=== PATIENT | female | born 1970 | race Caucasian/White ===

== ENCOUNTER → 2016-09-04 | Outpatient (CLI) | payer BC ==
[~2016-09-04] MED LIST: ACET-1256 PO; ASCO100061 PO; BIOT1CAP3 PO; CALC-20 PO; CHOL1TAB46 PO; FEXO1TAB46 PO; FLNIN/ NAE; MULT-920 PO; MULT1TAB22 PO; NAPR1TAB9 PO; OMEG10007 PO; PYRI50TA77 PO
[2016-09-04 10:45] LABS: HEMATOCRIT 42.9 % (37-47); MEAN CORPUSCULAR HEMOGLOBIN 28.7 pg (25-34); MEAN CORPUSCULAR HGB CONC 33.8 g/dl (32-36); MEAN PLATELET VOLUME 10.4 fL (7.4-10.4); PLATELET COUNT 524 K/uL (130-400); RED BLOOD COUNT 5.05 M/uL (4.2-5.4); WHITE BLOOD COUNT 8.48 K/uL (4.8-10.8)
[2016-09-04 11:16] LABS: ALT/SGPT 21 U/L (12-78); BLOOD UREA NITROGEN 10 mg/dl (7-18); BUN/CREATININE RATIO 12.4 (10-20); CALCIUM 8.5 mg/dl (8.5-10.1); CARBON DIOXIDE 28 mmol/L (21-32); CHLORIDE 101 mmol/L (98-107); CREATININE 0.78 mg/dl (0.60-1.20); GLUCOSE 273 mg/dl (70-99); POTASSIUM 4.1 mmol/L (3.5-5.1); SODIUM 134 mmol/L (136-145)
[2016-09-04 11:26] LABS: ESTIMATED AVERAGE GLUCOSE 341 mg/dl; HA1C FLAG Normal (Normal)
[2016-09-04 11:27] LABS: CHOLESTEROL 239 mg/dl (0-200); CHOLESTEROL/HDL RATIO 5.7; HDL CHOLESTEROL 42 mg/dl; LDL CHOLESTEROL CALCULATED 145 mg/dl; RHEUMATOID FACTOR < 10.0 U/mL (0-15); TRIGLYCERIDES 260 mg/dl (0-150); VERY LOW DENSITY LIPOPROT CALC 52 mg/dl
[2016-09-04 12:43] LABS: URINE APPEARANCE CLEAR (CLEAR); URINE BILIRUBIN NEG (NEG); URINE COLOR YELLOW; URINE EPITHELIAL CELL AUTO >30 /lpf (0-5); URINE NITRITE NEG (NEG); URINE PH 5.5 (4.5-7.5); URINE SPECIFIC GRAVITY 1.033 (1.000-1.030); UROBILINOGEN NEG (NEG)
[2016-09-04 12:57] LABS: MANUAL MICROSCOPIC REQUIRED? NO; REVIEW REQ? NO
--- NOTE | 2016-09-08 11:26 | CODING QUERY NO DIAGNOSIS ---
TREATMENT RENDERED WITHOUT A DIAGNOSIS Dr. Everett, To promote full compliance with coding requirements relating to patient care, physician participation is requested in all cases of graphics programmer uncertainty. Please assist us with providing a diagnosis/symptom for the test(s) below: A diagnosis/symptom was not documented on your Order. A valid diagnosis/symptom is required to bill all insurances. Please remember that we are unable to code a diagnosis of rule out, probable, possible, questionable, or suspected. Tests that require a diagnosis: * SED-RATE DIAGNOSIS: * CBC W/O DIFF DIAGNOSIS: * BMP DIAGNOSIS: * LIPID PANEL DIAGNOSIS: * SGPT (ALT) DIAGNOSIS: * RHEUMATOID FACTOR DIAGNOSIS: * GLYCOHEMOGLOBIN A1C DIAGNOSIS: * HA1C RESULT >9.0% DIAGNOSIS: * JOHN DIAGNOSIS: * URINALYSIS W/ MICROSCOPY DIAGNOSIS: * TSH DIAGNOSIS: DATE OF SERVICE: 09/04/16 Provider Signature: Date: Thank you [facility] Information Management Once completed, please kindly fax back to [phone] For questions please call [phone]
== END | disposition home or self-care (01) ==
LOC: C.LAB1850 09:28
PROVIDERS: ATTEND Family Medicine
DX: M25.50 Pain in unspecified joint (principal); E78.5 Hyperlipidemia, unspecified; R73.03 Prediabetes; R32 Unspecified urinary incontinence

== ENCOUNTER → 2016-09-24 | Outpatient (CLI) | payer BC | END | disposition home or self-care (01) | LOC: C.LABSPEC 17:46 | PROVIDERS: ATTEND Physician Assistant | DX: L29.2 Pruritus vulvae (principal) ==

== ENCOUNTER → 2016-10-28 | Outpatient (CLI) | payer BC ==
--- NOTE | 2016-10-28 09:34 | DIAGNOSTIC IMAGING REPORT ---
L-SPINE MIN 4 VIEWS ROUTINE CLINICAL HISTORY: D47.3 BnwljffwuirijjG64.0 Elevated sedimentation rateM54.5 low back pain COMPARISON STUDY: No previous studies for comparison. FINDINGS: There are 5 lumbar type vertebral bodies present. There are mild degenerative changes. No fractures or subluxations are visualized. There are no structural lesions. There is no pathologic bowel dilatation. An IUD is visualized. IMPRESSION: Mild degenerative change. No fractures, subluxations, or destructive lesions are visualized Electronically signed by: Yasmany Petersen M.D. 10/28/2016 9:32 AM Dictated Date/Time: 10/28/2016 9:31 AM
--- NOTE | 2016-10-28 09:35 | DIAGNOSTIC IMAGING REPORT ---
SI JOINTS 3 OR MORE VIEWS CLINICAL HISTORY: D47.3 VlazcoabgspgzwH09.0 Elevated sedimentation rateM54.5 low back pain. COMPARISON STUDY: No previous studies for comparison. FINDINGS: There is no evidence of SI joint fusion. There are no erosive changes. No destructive lesions are evident. Incidental note is made of an IUD. IMPRESSION: No conventional radiographic evidence of an inflammatory sacroiliitis Electronically signed by: Yasmany Petersen M.D. 10/28/2016 9:33 AM Dictated Date/Time: 10/28/2016 9:33 AM
[2016-10-28 12:14] LABS: BASO % 0.4 %; BASO ABS # 0.04 K/uL (0-0.2); COMPLETE YES; EOS % 1.6 %; HEMATOCRIT 44.8 % (37-47); IG% 0.2 %; LYMPH % 29.2 %; LYMPH ABS # 3.16 K/uL (1.2-3.4); MEAN CELL VOLUME 86.3 fL (80-100); MEAN CORPUSCULAR HEMOGLOBIN 27.6 pg (25-34); MEAN CORPUSCULAR HGB CONC 31.9 g/dl (32-36); MEAN PLATELET VOLUME 10.1 fL (7.4-10.4); MONO % 7.3 %; NEUT % 61.3 %; PLATELET COUNT 562 K/uL (130-400); RED BLOOD COUNT 5.19 M/uL (4.2-5.4); WHITE BLOOD COUNT 10.81 K/uL (4.8-10.8)
[2016-10-28 12:33] LABS: ALT/SGPT 22 U/L (12-78); AST/SGOT 18 U/L (15-37); C-REACTIVE PROTEIN 2.71 mg/dl (0-0.29); CREATININE 0.86 mg/dl (0.60-1.20)
[2016-10-28 12:34] LABS: ALKALINE PHOSPHATASE 95 U/L (45-117)
[2016-11-01 02:48] LABS: ANTI-CENTROMERE AB <1.0 NEG AI (<1.0 NEG); ANTI-SS-A <1.0 NEG AI (<1.0 NEG); ANTI-SS-B <1.0 NEG AI (<1.0 NEG); DNA ds CRITHIDIA NEGATIVE (NEGATIVE); HLA-B27** TC 528X NEGATIVE (NEGATIVE); Sm Antibody <1.0 NEG AI (<1.0 NEG)
== END | disposition home or self-care (01) ==
LOC: C.RAD1850 08:55
PROVIDERS: ATTEND Internal Medicine Rheumatology
DX: D47.3 Essential (hemorrhagic) thrombocythemia (principal); R70.0 Elevated erythrocyte sedimentation rate; M54.5 Low back pain; M46.1 Sacroiliitis, not elsewhere classified

== ENCOUNTER → 2016-11-02 | Outpatient (CLI) | payer BC ==
--- NOTE | 2016-11-02 10:24 | DIAGNOSTIC IMAGING REPORT ---
ORBIT RADIOGRAPHS 3 VIEWS HISTORY: pre-MRI screening. COMPARISON: None. FINDINGS: There are no radiopaque foreign bodies identified within the orbits. IMPRESSION: No radiopaque foreign bodies identified within the orbits. Electronically signed by: Aniket Bradley M.D. 11/02/2016 10:23 AM Dictated Date/Time: 11/02/2016 10:22 AM
--- NOTE | 2016-11-02 10:34 | DIAGNOSTIC IMAGING REPORT ---
MRI pelvis PELVIS WITHOUT CONTRAST (MRI) CLINICAL HISTORY: B/L LOW BACK Pain, elevated SED RATE pain TECHNIQUE: Multiaxial MRI acquisition COMPARISON STUDY: 10/28/2016 FINDINGS: Slight degree of bone marrow edema of the osseous structures adjacent to the sacroiliac joints. No evidence of bony ankylosis. No significant pelvic adenopathy. All remaining osseous structures show unremarkable signal characteristics. IMPRESSION: Minimal inflammatory change of the sacroiliac joints bilaterally. Electronically signed by: Kaleb Angel M.D. 11/02/2016 10:33 AM Dictated Date/Time: 11/02/2016 10:29 AM
== END | disposition home or self-care (01) ==
LOC: C.OPENMRI 08:42
PROVIDERS: ATTEND Internal Medicine Rheumatology
DX: H05.9 Unspecified disorder of orbit (principal)

== ENCOUNTER → 2016-11-19 | Outpatient (CLI) | payer BC ==
--- NOTE | 2016-11-19 13:50 | MAMMOGRAPHY REPORT ---
BILATERAL DIGITAL SCREENING MAMMOGRAM TOMOSYNTHESIS WITH CAD: 11/19/2016 CLINICAL HISTORY: Routine screening. Patient has no complaints. TECHNIQUE: Bilateral breast tomosynthesis in addition to standard 2D mammography was performed. Repe at 2-D left MLO view was obtained. Current study was also evaluated with a Computer Aided Detection (CAD) system. COMPARISON: Comparison is made to exams dated: 06/18/2015 mammogram, 12/28/2012 mammogram, and 12/22/2012 mammogram - [facility]. BREAST COMPOSITION: The tissue of both breasts is heterogeneously dense, which may obscure small mas ses. FINDINGS: There is a 9 mm nodular asymmetry in the superior posterior right breast on the MLO view, and an 8 mm nodular asymmetry in the middle one third of the right breast, along the posterior nipple line on the MLO view. These are not clearly seen on the right CC view. Although the asymmetries co uld represent normal overlapping fibroglandular tissue, additional spot compression tomosynthesis vie ws and possibly ultrasound are recommended. No other suspicious mass, architectural distortion or cluster of microcalcifications is seen bilatera lly. IMPRESSION: ACR BI-RADS CATEGORY 0: INCOMPLETE EVALUATION: NEED ADDITIONAL IMAGING EVALUATION The 2 nodular asymmetries in the right breast need additional evaluation. The patient will be called to schedule an appointment. Approximately 10% of breast cancers are not detected with mammography. A negative mammographic report should not delay biopsy if a clinically suggestive mass is present. Whit Pearson M.D. ay/:11/19/2016 08:48:10 Garment Sewing Machine Operator: Milagros SHEFFIELD(R)(Brenda)(HENRRY), [facility] letter sent: Addl Imaging 0 BI-RADS Code: ACR BI-RADS Category 0: Incomplete Evaluation: Need Additional Imaging Evaluation
== END | disposition home or self-care (01) ==
LOC: C.MAMM 07:34
PROVIDERS: ATTEND Obstetrics & Gynecology
DX: Z12.31 Encounter for screening mammogram for malignant neoplasm of breast (principal); N64.89 Other specified disorders of breast

== ENCOUNTER → 2016-11-30 | Outpatient (CLI) | payer BC ==
--- NOTE | 2016-12-01 07:40 | MAMMOGRAPHY REPORT ---
UNILATERAL RIGHT DIGITAL DIAGNOSTIC MAMMOGRAM TOMOSYNTHESIS AND TARGETED RIGHT ULTRASOUND: 11/30/2016 CLINICAL HISTORY: 46-year-old woman called back from screening mammography for 2 nodular asymmetries in the right breast on the MLO view. No family history of breast cancer. TECHNIQUE: Spot compression right CC and MLO 2-D digital and tomosynthesis images were obtained. COMPARISON: Comparison is made to exams dated: 11/19/2016 mammogram, 06/18/2015 mammogram, 12/28/2012 [facility] mogram, and 12/22/2012 mammogram - [facility]. BREAST COMPOSITION: The tissue of the right breast is heterogeneously dense, which may obscure small masses. FINDINGS: There is effacement of the nodular asymmetries on the spot compression MLO views and corre sponding tomosynthesis images. No definite persistent mass or focal area of architectural distortion is seen in the middle or posterior one third of the breast, superior aspect. No corresponding abnor mality is seen on the spot compression CC views of the right breast. Further evaluation with ultraso und was performed. Targeted ultrasound was performed throughout the right breast with particular attention to the superi or breast. It should be noted that sonographic evaluation of the right breast is technically difficu lt given the breast density and numerous shadowing areas throughout the right breast on ultrasound. Within this limitation, and the 1:00 axis, 3 cm from the nipple there is a lobulated hypoechoic and a nechoic solid versus cystic mass measuring 4.9 x 3.9 x 4.5 mm. An area of irregular hypoechoic tissu e was identified in the 3:00 right breast in the anti-radial plane which elongates in the radial plan e suggesting normal fibroglandular tissue. There is a benign anechoic simple cyst in the 11:00 right breast, to 7 m from the nipple, measuring 7.5 x 5.3 x 8.6 mm. 2 other anechoic cysts are identified in the 10:00 right breast, 8 cm from the nipple, measuring 5.3 x 4.1 x 7.7 and 5.2 x 3.8 mm, respect ively. A lobulated hypoechoic solid versus cystic mass in the right 9:00 breast, 15 cm from the nipp le, measures 9.3 x 7.2 x 9.1 mm. A lobulated and circumscribed hypoechoic solid-appearing mass is se en in the 9:00 periareolar right breast measuring 4.6 x 2.9 x 6.6 mm. The only definitive solid mass in the right breast is identified in the 9:00 periareolar axis and thi s small masses indeterminate and definitive characterization with ultrasound guided core needle biops y is recommended. However, there are other indeterminate solid versus cystic masses in the right 9:0 0 breast, 15 cm from the nipple, and in the right 1:00 breast, 3 cm from the nipple. I would prefer definitive characterization with a breast MRI, given the technically difficult breast ultrasound, to assess for the possibility of a suspicious enhancing mass versus benign cysts. However the patient i s claustrophobic and if she is unable to tolerate the MRI, would recommend ultrasound-guided core bio psy 1 and ultrasound guided cyst aspiration versus core biopsy 2. IMPRESSION: ACR BI-RADS CATEGORY 0: INCOMPLETE EVALUATION: NEED ADDITIONAL IMAGING EVALUATION, TARG ETED ULTRASOUND ACR BI-RADS CATEGORY 0: INCOMPLETE EVALUATION: NEED ADDITIONAL IMAGING EVALUATION 1. A contrast-enhanced breast MRI is recommended for definitive characterization of indeterminate so lid versus cystic masses in the 9:00 and 1:00 axes of the right breast, given the heterogeneously den se breast parenchyma and technically difficult ultrasound due to multiple shadowing areas throughout the breast. The sonographic characteristics do not definitively differentiate these masses as solid versus cystic. 2. There is a solid mass in the 9:00 periareolar right breast for which ultrasound-guided core needl e biopsy is ultimately recommended. 3. The patient is claustrophobic and I advised her that Valium may be obtained from her referring ph ysician for use prior to the procedure. If she is unable to tolerate the breast MRI, an addendum bogdan l be made to this report with different recommendations. Approximately 10% of breast cancers are not detected with mammography. A negative mammographic report should not delay biopsy if a clinically suggestive mass is present. Whit Pearson M.D. ay/:11/30/2016 15:19:58 Long Line Teamster: Rema MARADIAGA)(Brenda), [facility] letter sent: Addl Imaging 0 BI-RADS Code: ACR BI-RADS Category 0: Incomplete Evaluation: Need Additional Imaging Evaluation Ult rasound BI-RADS: ACR BI-RADS Category 0: Incomplete Evaluation: Need Additional Imaging Evaluation
== END | disposition home or self-care (01) ==
LOC: C.MAMM 11:21
PROVIDERS: ATTEND Obstetrics & Gynecology
DX: N64.9 Disorder of breast, unspecified (principal); N63 Unspecified lump in breast

== ENCOUNTER → 2016-12-04 | Outpatient (CLI) | payer BC ==
[2016-12-04 10:19] LABS: CREATININE 0.97 mg/dl (0.60-1.20)
== END | disposition home or self-care (01) ==
LOC: C.LAB1850 09:09
PROVIDERS: ATTEND Obstetrics & Gynecology
DX: R73.01 Impaired fasting glucose (principal); R92.2 Inconclusive mammogram; N63 Unspecified lump in breast

== ENCOUNTER → 2016-12-11 | Outpatient (CLI) | payer BC ==
--- NOTE | 2016-12-14 07:44 | MAMMOGRAPHY REPORT ---
BREAST MRI OF BOTH BREASTS : 12/11/2016 CLINICAL HISTORY: Multiple solid versus cystic masses seen within the right 9 and 1:00 breast during recent diagnostic workup, for which MRI was recommended for further evaluation. COMPARISON: Comparison is made to exams dated: 11/30/2016 mammogram, 11/19/2016 mammogram, 06/18/2015 [facility] mogram, 12/28/2012 mammogram, and 12/22/2012 mammogram - [facility]. Technique: The patient was placed prone in a dedicated breast imaging coil. Precontrast axial T1-rosanne ghted, axial T2-weighted fat saturation, and axial T1-weighted fat saturation images were obtained. After the administration of 10.5 mL of Gadavist IV contrast, sequential T1-weighted fat saturation im ages were obtained. Subtraction images were obtained of the dynamic contrast enhanced sequences, and 3-D reformations were performed. The Meniga software was used for kinetic analysis. Findings: There is mild to moderate background parenchymal enhancement involving bilateral breasts. There are no suspicious enhancing masses or areas of abnormal non-mass enhancement within either breast. There are multiple circumscribed small T2 hyperintense, nonenhancing masses seen scattered bilaterally, co nsistent with cysts. The multiple masses seen in the right breast on recent ultrasound exam likely c orrespond with the cysts seen on the MRI, given no enhancing masses noted on the postcontrast images. There is no evidence of axillary adenopathy. A minimal dependent right pleural effusion is noted. R emainder of the visualized extramammary soft tissues are unremarkable. IMPRESSION: ACR BI-RADS CATEGORY 4A: LOW SUSPICION FOR MALIGNANCY No MRI evidence of malignancy in either breast. Multiple bilateral cysts are noted, which likely cor respond with the multiple masses seen within the right breast on the recent ultrasound exam. Recomme nd ultrasound-guided biopsy of the right 9:00 periareolar breast mass, as recommended on the recent d iagnostic report. Pending benign pathology results, recommend follow-up diagnostic tomosynthesis denise mograms and ultrasound of the right breast in 6 months to confirm stability of the other masses. A phone call was made to the physician's office to confirm faxed results were received. Angelita Mora M.D. /:12/12/2016 11:25:25 Finished Metal Repairer: deep submergence vehicle crewmember, [facility] BI-RADS Code: ACR BI-RADS Category 4A: Low Suspicion For Malignancy
== END | disposition home or self-care (01) ==
LOC: C.MRI 06:28
PROVIDERS: ATTEND Obstetrics & Gynecology
DX: N63 Unspecified lump in breast (principal); R73.01 Impaired fasting glucose; N60.01 Solitary cyst of right breast; N60.02 Solitary cyst of left breast

== ENCOUNTER → 2016-12-23 | Outpatient (CLI) | payer BC ==
--- NOTE | 2016-12-23 09:40 | Discharge Instructions ---
Discharge Instructions Procedure Procedure Date: Dec 23, 2016. Reason for visit: Right Mass. Discharge Discharge Date: Dec 23, 2016. Discharge Diagnosis: post right breast ultrasound guided core biopsy Instructions Activity Recommendations: Additional Limitations (see below) Return to School/Work: no limitations Recommended Home Diet: No Limitations Provider Instructions: ACTIVITY RECOMMENDATIONS: * No lifting, pushing, pulling or exercising the affected side for three days. RETURN TO SCHOOL/WORK: * You may return to work/school after the procedure, but do not perform any strenuous activities for 24 to 48 hours. MEDICATIONS: * Tylenol (two 325 mg) every four to six hours if needed for mild pain (if not allergic to Tylenol). DIET: * Resume previous diet. SPECIAL CARE INSTRUCTIONS: * Keep biopsy site dry for 24 hours. May shower after 24 hours, but do not soak (bathe) incision. * May remove Tegaderm (plastic patch) tomorrow AFTER showering. * Leave the steri-strips on for one week. Allow the steri-strips to fall off by themselves. If not off after one week, you may remove them. You may place a Bandaid crosswise over the strips, if desired. * Apply ice 10 minutes on and 10 minutes off as needed. * Wear a bra at bedtime to sleep more comfortably for 2-3 days. * Your referring physician should have the results after approximately 5 to 7 business days. * Call for unusual bleeding, fever, drainage, etc or if you have any questions call [phone] during normal business hours or after hours call Dr Pearson, . FOLLOW UP VISIT: Follow-up with Referring Physician as scheduled. Allergies Coded Allergies: Pineapple (Verified Allergy, Severe, throat closes up, 10/11/15) Penicillins (Unverified Allergy, Mild, HIVES A BABY, 10/11/15) Molds & Smuts (Unverified Allergy, Unknown, TESTED ALLERGY TO MOLDS-SINUS ISSUES, 10/11/15) Sulfa Antibiotics (Verified Adverse Reaction, Unknown, NAUSEA, 10/11/15) Maria Elena Suresh Recommendations: Call your doctor if: * Temperature above 101 degrees * Pain not relieved by pain medicine ordered * There is increased drainage or redness from any incision * You have any unanswered questions or concerns. Your Doctors Instructions noted above were prepared by provider Whit Pearson. Patient Signature Section: Patient Instructions Signature Page Elza Thorne Patient (or Guardian) Signature/Date: I have read and understand the instructions given to me by my caregivers. Caregiver/RN/Doctor Signature/Date: The above-named patient and/or guardian has received patient instructions on this date. + Original Patient Signature Page (only) stays with chart. Please make copy for patient.
--- NOTE | 2016-12-23 12:24 | MAMMOGRAPHY REPORT ---
THIS REPORT HAS BEEN AMENDED. ULTRASOUND GUIDED BIOPSY RIGHT BREAST: 12/23/2016 CLINICAL HISTORY: 46-year-old woman with an indeterminate solid mass in the 9:00 periareolar right br east. Numerous other masses scattered throughout the right breast mammographically, most of which ar e felt to be cystic in nature based on a recent MRI. She presents for ultrasound-guided core needle biopsy of the solid appearing mass in the 9:00 right breast. COMPARISON: Comparison is made to exams dated: 11/30/2016 ultrasound, 11/30/2016 mammogram, 11/19/2016 m ammogram, 06/18/2015 mammogram, 12/22/2012 mammogram, and 12/28/2012 mammogram - [facility]. PATIENT CONSENT: The procedure, risks and benefits were discussed with the patient and informed conse nt was obtained both verbally and in writing. Specific risks to this procedure include: bleeding, in fection, puncture of adjacent structure, nontarget biopsy, sampling error, pain, metal allergy and me dication reaction. PROCEDURE DESCRIPTION: A time out was performed and the right breast was agreed as the site of biopsy . The skin was prepped and draped in the usual sterile fashion. The lobulated hypoechoic solid mass i n the 9:00 right breast was chosen as the target for biopsy. Subcutaneous and intraparenchymal 1% buf fered lidocaine, with and without epinephrine, was administered as local anesthesia. A skin incision was made. Through the incision, 4 samples were taken with a 14 gauge Achieve biopsy device. A ribbon shaped metallic marker was placed at the biopsy site. Hemostasis was achieved after manual compressi on. The patient tolerated the procedure well and there was no immediate complication. The samples we re sent to the pathology department in an appropriately labeled container. Postprocedure right CC and ML tomosynthesis images were obtained. A new ribbon-shaped metallic biops y marker is seen in the 9:00 anterior right breast, at the site of the biopsied indeterminate hypoech oic solid mass identified on ultrasound. No post biopsy hematoma is identified. Pending benign path ology results, recommend follow-up diagnostic mammograms including tomosynthesis images and possible repeat ultrasound in the right breast in 6 months. IMPRESSION: ULTRASOUND GUIDED BIOPSY Status post ultrasound guided core biopsy of an indeterminate hypoechoic solid mass in the 9:00 anter ior right breast, with biopsy marker placed at the site. Pending benign pathology results, follow-up right diagnostic mammograms including tomosynthesis image s and possible repeat ultrasound is recommended to ensure stability of other mammographic masses in 6 months. The patient will receive notification of the biopsy results from her referring physician. Whit Pearson M.D. ay/:12/23/2016 12:13:22 Hr Leader: Becca MARADIGAA)(Brenda), [facility] AMENDMENT: 12/30/2016 Whit Pearson M.D. Pathology results from the ultrasound-guided core biopsy of a hypoechoic solid-appearing mass in the 9:00 right breast yielded benign breast tissue. Negative for DCIS and invasive carcinoma. Sections reveal benign breast tissue consisting of course of fibrofatty stroma. Only rare ductal elements are identified. No atypical features are noted. No DCIS or malignancy is seen. Although the pathology results do not show masslike features, the imaging appearance was probably benign. The patient is a lready recommended to have a six-month close follow-up diagnostic mammograms and ultrasound for other benign-appearing solid versus cystic masses and therefore can reassess the 9:00 right breast with re peat targeted ultrasound at that time.
--- NOTE | 2016-12-23 12:24 | MAMMOGRAPHY REPORT ---
UNILATERAL RIGHT DIGITAL DIAGNOSTIC MAMMOGRAM TOMOSYNTHESIS: 12/23/2016 CLINICAL HISTORY: Status post ultrasound guided core biopsy of an indeterminate solid mass in the 9:0 0 periareolar right breast. Please refer to the report from right breast ultrasound-guided core biopsy performed at the same time for full detail. IMPRESSION: POST PROCEDURE IMAGING FOR MARKER PLACEMENT Please refer to the report from right breast ultrasound-guided core biopsy performed at the same time for full detail. Approximately 10% of breast cancers are not detected with mammography. A negative mammographic report should not delay biopsy if a clinically suggestive mass is present. Whit Pearson M.D. ay/:12/23/2016 09:43:46 Pulp Mill Operator: Becca SHEFFIELD(R)(M), [facility] BI-RADS Code: Post Procedure Imaging For Marker Placement
== END | disposition home or self-care (01) ==
LOC: C.MAMM 08:47
PROVIDERS: ATTEND Obstetrics & Gynecology
DX: N63 Unspecified lump in breast (principal)

== ENCOUNTER → 2017-01-27 | Outpatient (CLI) | payer BC | END | disposition home or self-care (01) | LOC: C.PAPS 13:37 | PROVIDERS: ATTEND Obstetrics & Gynecology | DX: Z01.419 Encounter for gynecological examination (general) (routine) without abnormal findings (principal) ==

== ENCOUNTER → 2017-08-17 | Outpatient (CLI) | payer BC ==
--- NOTE | 2017-08-18 07:58 | MAMMOGRAPHY REPORT ---
UNILATERAL RIGHT DIGITAL DIAGNOSTIC MAMMOGRAM TOMOSYNTHESIS WITH CAD AND TARGETED RIGHT ULTRASOUND: CLINICAL HISTORY: 47-year-old woman initially called back from screening for 2 nodular asymmetries in the superior right breast on the MLO view. She was found to have a solid mass in the 9:00 anterior right breast on ultrasound but underwent breast MRI prior to core biopsy given the multiple masses se en in the right breast on targeted ultrasound. Numerous cysts were demonstrated on MRI with a single solid mass corresponding with the sonographic mass in the 9:00 axis and therefore ultrasound-guided core biopsy was performed in one location and this yielded benign pathology results. Patient present s for follow-up in the right breast. The initial mammographic nodular asymmetries were thought to co rrespond with cysts and normal overlapping tissue. TECHNIQUE: Right breast tomosynthesis in addition to standard 2D mammography was performed. Current s tudy was also evaluated with a Computer Aided Detection (CAD) system. COMPARISON: Comparison is made to exams dated: 12/23/2016 mammogram, 11/30/2016 ultrasound, 11/30/2016 m ammogram, 11/19/2016 mammogram, 06/18/2015 mammogram, and 12/28/2012 mammogram - [facility]. BREAST COMPOSITION: The tissue of the right breast is heterogeneously dense, which may obscure small masses. FINDINGS: The 2 nodular asymmetries in the superior right breast on the MLO view are less conspicuous on the current exam. There is a ribbon-shaped biopsy marker clip in the 9:00 anterior right breast, denoting the site of prior benign biopsy. Other than multiple partially circumscribed masses scatte red in the right breast on the tomosynthesis images, there are no suspicious spiculated or irregular masses, focal areas of architectural distortion or suspicious microcalcifications identified. Targeted ultrasound was performed in the right breast with particular attention to the areas of benig n-appearing hypoechoic masses identified on prior ultrasound. In the 1:00 right breast, 3 cm from th e nipple, a mass is no longer identified, confirming a benign fluctuating cysts. Likewise in the 3:0 0 axis, 10 cm from the nipple a mass is no longer identified, suggesting a benign fluctuating cyst. In the 9:00 periareolar right breast, the previously biopsied benign mass is again seen measuring 5.5 x 3.7 x 5.6 mm. This is unchanged comparing it to the ultrasound performed November 30, 2016 at which t adela it measured 4.6 x 2.9 x 6.6 mm. Given slight differences in positioning and measuring technique this is considered stable. Another six-month follow-up ultrasound is recommended to ensure longer st ability. In the 9:00 axis, 15 cm from the nipple, there are 2 abutting anechoic cysts with posterior acoustic enhancement, measuring 6.8 x 7.0 x 5.9 mm, and another probable cyst with posterior acousti c enhancement seen in the 9:00 axis, 10 cm from the nipple, measuring 7.6 mm. There are anechoic gómez ign cyst in the 10:00 axis, 8 cm from the nipple, without evidence of a suspicious hypoechoic solid m ass. IMPRESSION: ACR-BI-RADS CATEGORY 3: PROBABLY BENIGN, TARGETED ULTRASOUND ACR-BI-RADS CATEGORY 3: PRO BABLY BENIGN 1. Less prominent nodular asymmetries in the superior right breast on the MLO view, confirming benig nity likely representing benign cysts or overlapping fiber glandular tissue. 2. Stable postbiopsy changes in the 9:00 anterior right breast mammographically, and a stable sonogr aphic size and appearance of a benign-appearing mass in the 9:00 periareolar breast which was previou sly biopsied. Another six-month follow-up targeted right breast ultrasound in the 9:00 axis is recom mended to ensure longer stability. 3. Previously observed hypoechoic benign-appearing masses on ultrasound most likely represent benign fibrocystic change. Lesions are no longer seen in the 1:00 or 3:00 axis, confirming benignity likel y representing resolving cysts. Other masses that are currently identified have a clearly cystic xavier ure and are benign in appearance. 4. At the time of next follow-up in the right breast, annual left mammography will also be due. These results and recommendations were discussed with the patient at the time of the exam. Approximately 10% of breast cancers are not detected with mammography. A negative mammographic report should not delay biopsy if a clinically suggestive mass is present. Whit Pearson M.D. ay/:08/17/2017 12:56:20 Gaming Associate: Rema SHEFFIELD(Dante)(Brenda), [facility] letter sent: Follow Up Recommended 3 BI-RADS Code: ACR-BI-RADS Category 3: Probably Benign Ultrasound BI-RADS: ACR-BI-RADS Category 3: Pr obably Benign
== END | disposition home or self-care (01) ==
LOC: C.MAMM 07:45
PROVIDERS: ATTEND Obstetrics & Gynecology
DX: R92.8 Other abnormal and inconclusive findings on diagnostic imaging of breast (principal); N64.89 Other specified disorders of breast; N63.10 Unspecified lump in the right breast, unspecified quadrant

== ENCOUNTER 2019-11-23 07:09 | Inpatient (IN) ==
--- NOTE | 2019-11-10 15:31 | Anesthesiology Consultation ---
Date of Service November 10, 2019 Assessment & Plan (1) Encounter for pre-operative examination: Chart Review Chart Review: Pending: Refer to Additional Notes / Consult section (pending response from PCP and 11/20 Covid testing ) and Patient NOT seen in Pre Admission Testing - Check BSG AM DOS - Check test AM DOS - Wrote note to PCP re: platelet count and if this is baseline for patient or if further work up needed. Will await response. Per nursing assessment 11/06/19, resides in [facility] - no recent travel. Wears mask in public. Scheduled for Covid testing 11/21/19. Will await results History Surgery Operation Date: 11/23/19 07:00 Proposed Procedures p Open Ventral Hernia Repair with Ovitex Mesh - Sarbjit Andrade, Height/Weight Height: 5 ft 6 in Weight: 108.862 kg Allergies Allergy/AdvReac Type Severity Reaction Status Date / Time pineapple Allergy Severe throat Verified 11/06/19 13:39 closes up Penicillins Allergy Mild HIVES A Unverified 11/06/19 13:39 BABY mold Allergy Unknown TESTED Unverified 11/06/19 13:39 ALLERGY TO MOLDS-SINUS ISSUES Sulfa (Sulfonamide AdvReac Mild NAUSEA Verified 11/06/19 13:39 Antibiotics) Medications Home Medications Medication Instructions Recorded Confirmed Last Taken ascorbic acid (vitamin C) [Vitamin 1 g PO QAM 11/06/19 11/06/19 Unknown C] aspirin 81 mg PO HS 11/06/19 11/06/19 Unknown cholecalciferol (vitamin D3) 125 mcg PO QAM 11/06/19 11/06/19 Unknown [Vitamin D3] diphenhydramine-acetaminophen 2 tab PO HS 11/06/19 11/06/19 Unknown [Tylenol PM Extra Strength] fexofenadine-pseudoephedrine 1 tab PO QAM 11/06/19 11/06/19 Unknown [Kia-D 24 Hour] fluticasone propionate [Flonase 1 spray INTRANASAL HS 11/06/19 11/06/19 Unknown Allergy Relief] hydrochlorothiazide 25 mg PO QAM 11/06/19 11/06/19 Unknown levonorgestrel [Mirena] 20 mcg INTRAUTERINE UD 11/06/19 11/06/19 Unknown lisinopril 20 mg PO QAM 11/06/19 11/06/19 Unknown metformin 500 mg PO TID 11/06/19 11/06/19 Unknown [id number] 1.7 mg PO QAM 11/06/19 11/06/19 Unknown [Airborne (ascorbate sodium)] naproxen [Naprosyn] 500 mg PO BID 11/06/19 11/06/19 Unknown omeprazole 40 mg PO QAM 11/06/19 11/06/19 Unknown rosuvastatin 10 mg PO QPM 11/06/19 11/06/19 Unknown semaglutide [Ozempic] 0.5 mg SUBCUT WK 11/06/19 11/06/19 Unknown sertraline 25 mg PO QAM 11/06/19 11/06/19 Unknown sitagliptin [Januvia] 100 mg PO QAM 11/06/19 11/06/19 Unknown Past Medical History Medical History (Updated 11/10/19 @ 15:34 by Aleisha Hodges PA-C) Ankylosing spondylitis Anxiety Diabetes mellitus, type 2 GERD (gastroesophageal reflux disease) History of migraine headaches Hypercholesterolemia Hypertension IBS (irritable bowel syndrome) IUD (intrauterine device) in place Mirena inserted in OR 10/11/2015 Menorrhagia with irregular cycle Pancreatic tumor BENIGN Stress incontinence Past Family History Family History Grandmother Hypertension Grandfather Hypertension Father Hypertension Grandmother (Maternal) Diabetes Grandfather (Maternal) Heart disease Grandfather (Paternal) Heart disease Diabetes Denies family history of Ovarian cancer Breast cancer Colorectal cancer Past Surgical History Surgical History H/O breast biopsy RT History of cholecystectomy History of dilatation and curettage History of esophagogastroduodenoscopy (EGD) History of lung surgery LEFT VATS D/T FLUID BUILD UP 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
[~2019-11-23 07:09] MED LIST changes: -ACET-1256 PO; -ASCO100061 PO; -BIOT1CAP3 PO; -CALC-20 PO; -CHOL1TAB46 PO; +CLINDAMYCIN 900 MG in DEXTROSE 5% 50 ML IV SCH; -FEXO1TAB46 PO; -FLNIN/ NAE; +LR 15ML/HR IV SCH; -MULT-920 PO; -MULT1TAB22 PO; -NAPR1TAB9 PO; -OMEG10007 PO; -PYRI50TA77 PO
[2019-11-23] MEDS ORDERED: MIDAZOLAM HCL 1 MG/ML 2ML VIAL ONE (07:37)
[2019-11-23] MEDS ORDERED: LIDOCAINE HCL 2% 2 ML VIAL/AMP(20MG/ML) INFIL ONE (07:37)
[2019-11-23] MEDS ORDERED: PROPOFOL IV EMULSION 10 MG/ML 20 ML VIAL IV ONE ×2 (07:37→09:51)
[2019-11-23] MEDS ORDERED: DEXAMETHASONE SOD INJ 4 MG/ML VIAL ONE (07:37)
[2019-11-23] MEDS ORDERED: ONDANSETRON INJ 2 MG/ML 2 ML VIAL ONE (07:37)
[2019-11-23] MEDS ORDERED: fentaNYL citrate 100 MCG/2 ML VIAL ONE ×3 (07:37→09:19)
[2019-11-23] MEDS ORDERED: EPINEPHrine INJ 1 MG/ML AMP ONE (08:10)
[2019-11-23] MEDS ORDERED: BUPIVACAINE 0.5 % 5 MG/1 ML MPF 30ML VIAL ONE (08:10)
[2019-11-23] MEDS ORDERED: ONDANSETRON INJ 2 MG/ML 2 ML VIAL IV PRN (08:14)
[2019-11-23] MEDS ORDERED: ePHEDrine sulfate 50 MG/ML AMP IV PRN (08:14)
[2019-11-23] MEDS ORDERED: PROMETHAZINE HCL 12.5 MG in SODIUM CHLORIDE 0.9% 50 ML IV PRN (08:14)
[2019-11-23] MEDS ORDERED: ATROPINE SULFATE 0.1 MG/ML 10ML SYR IV PRN (08:14)
--- NOTE | 2019-11-23 08:26 | History & Physical Report ---
Date of Service November 23, 2019 Assessment & Plan (1) Incisional hernia: Clearly these hernias should be repaired. We discussed her options previously as well as the pros and cons of each. I am recommending mesh we will likely use an absorbable type such as ovitex. We discussed risks which include infection infection mesh requiring explant injury to another organ bleeding, PE, [place], CVA, DVT etc. Following our discussion I answered all of her questions. We will proceed with an open ventral hernia repair likely with mesh. History of Present Illness Primary Care Provider: David Everett MD 49-year-old with a rather extensive past surgical history now presents with incisional hernias found on CT scan. They are symptomatic and uncomfortable for her and she would like to have them repaired. Allergies Allergy/AdvReac Type Severity Reaction Status Date / Time pineapple Allergy Severe throat Verified 11/23/19 07:39 closes up Penicillins Allergy Mild HIVES A Verified 11/23/19 07:39 BABY mold Allergy Unknown TESTED Verified 11/23/19 07:39 ALLERGY TO MOLDS-SINUS ISSUES Sulfa (Sulfonamide AdvReac Mild NAUSEA Verified 11/23/19 07:39 Antibiotics) Home Medications Home Medications Medication Instructions Recorded Confirmed Type ascorbic acid (vitamin C) [Vitamin 1 g PO QAM 11/06/19 11/23/19 History C] aspirin 81 mg PO HS 11/06/19 11/23/19 History cholecalciferol (vitamin D3) 125 mcg PO QAM 11/06/19 11/23/19 History [Vitamin D3] diphenhydramine-acetaminophen 2 tab PO HS 11/06/19 11/23/19 History [Tylenol PM Extra Strength] fexofenadine-pseudoephedrine 1 tab PO QAM 11/06/19 11/23/19 History [Kia-D 24 Hour] fluticasone propionate [Flonase 1 spray INTRANASAL HS 11/06/19 11/23/19 History Allergy Relief] hydrochlorothiazide 25 mg PO QAM 11/06/19 11/23/19 History levonorgestrel [Mirena] 20 mcg INTRAUTERINE UD 11/06/19 11/23/19 History lisinopril 20 mg PO QAM 11/06/19 11/23/19 History metformin 500 mg PO TID 11/06/19 11/23/19 History [id number] 1.7 mg PO QAM 11/06/19 11/23/19 History [Airborne (ascorbate sodium)] naproxen [Naprosyn] 500 mg PO BID 11/06/19 11/23/19 History omeprazole 40 mg PO QAM 11/06/19 11/23/19 History rosuvastatin 10 mg PO QPM 11/06/19 11/23/19 History semaglutide [Ozempic] 0.5 mg SUBCUT WK 11/06/19 11/23/19 History sertraline 25 mg PO QAM 11/06/19 11/23/19 History sitagliptin [Januvia] 100 mg PO QAM 11/06/19 11/23/19 History Past Med/Surg History Family History Grandmother Hypertension Grandfather Hypertension Father Hypertension Grandmother (Maternal) Diabetes Grandfather (Maternal) Heart disease Grandfather (Paternal) Heart disease Diabetes Denies family history of Ovarian cancer Breast cancer Colorectal cancer Social History (Updated 06/21/19 @ 16:39 by Марина Broderick RN) Preferred Language: Lithuanian Sales Team Manager Required: No Beliefs That Will Affect Care: None marital status: Single Current Living Situation: Family current occupational status: employed 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 Feels Safe at Home: Yes Safety Concerns: Feels Safe At This Time Smoking Status: Never smoker Do You Dip or Chew Tobacco: No ; Second Hand Exposure: Yes ( A CHILD) ; Tobacco Cessation Education Requested by Patient: No Hx Alcohol Use: Yes Hx Substance Use: No Review of Systems All systems reviewed & are unremarkable except as noted in HPI & below Physical Exam Constitutional: WD/WN, vitals as above no acute distress and not ill appearing Eyes: PERRL, conjunctivae normal, anicteric sclerae EOM intact bilaterally ENMT: external ear and nose normal, oropharynx normal Ears: no hearing impairment Neck: trachea midline, no thyromegaly Respiratory: normal respiratory effort; no respiratory distress and does not use accessory muscles Cardiovascular: Rate/Rhythm: regular rate and regular rhythm Gastrointestinal (Abdomen): Soft with minimal periumbilical tenderness. Positive bulge in the supraumbilical region with Valsalva. No evidence of incarceration. Skin: no rashes, warm and dry Psychiatric: Orientation: alert, oriented x 3 and cooperative Results & Data Vital Signs (Past 12 Hours) Vital Signs Temp Pulse Resp BP Pulse Ox 11/23/19 07:46 36.9 C 76 16 161/93 H 95
[2019-11-23] MEDS ORDERED: ARISTA ABSORBABLE HEMOSTAT 3GM TOP ONE (09:36)
[2019-11-23] MEDS ORDERED: TISSEEL FIBRIN SEALANT 10ML TOP ONE (09:36)
[2019-11-23] MEDS ORDERED: ROCURONIUM BROMIDE 10 MG/ML 5 ML VIAL IV ONE (09:52)
[2019-11-23] MEDS ORDERED: HYDROmorphone INJ 2 MG/ML SYR/VIAL ONE (10:04)
[2019-11-23] MEDS: fentaNYL citrate 100 MCG/2 ML VIAL IV PRN ×2 (11:31→11:36)
[2019-11-23] MEDS: HYDROmorphone INJ 2 MG/ML SYR/VIAL IV PRN ×4 (11:41→11:56)
--- NOTE | 2019-11-23 11:51 | Operative Report ---
PG Post Operative Report Pre & Post Diagnosis Operation Date: 11/23/19 08:40 Pre-Op Diagnosis: Ventral Hernia Post-Op Diagnosis: Ventral Hernia x5; adhesions I identified the patient and participated in the time-out.: Yes Procedure Operation Date: 11/23/19 08:40 Actual Procedures p Open Ventral Hernia Repair x 5 with Ovitex Mesh, Component Separation, Enterolysis(Not Applicable) - Sarbjit Andrade DO Surgeon Sarbjit Andrade DO Foundation Drill Operator kirby Olson Estimated Blood Loss 50 Findings Consistent with Post-Op Diagnosis Specimens none Description of Procedure After informed consent was obtained the patient was taken to the operating room and placed in supine position. After successful intubation the abdomen was st erilely prepped and draped in usual fashion. Initially we made an elliptical incision around her widened midline scar above her umbilicus. We removed this full-thickness with cautery. We then carried this incision down to the fascia where we readily encountered several small to medium sized hernia defects. I was able to enter peritoneum and swing my finger both inferiorly as well as superiorly on the undersurface of the fascia. There were also multiple hernias below the umbilicus. We opened the skin around down and inferior to the umbilicus again down to fascia. Essentially there were 5 hernias from below the umbilicus to midway to the xiphoid process. We divided all these fascial bridges and created 1 large defect. We also removed all the hernia sacs in this process and discarded them. Next we grabbed the fascial edges and again using traction countertraction and cautery skeletonized the fascia in 360 degrees. This was going to make for a rather tight primary closure. We therefore found the rectus/oblique line laterally and opened this on the left side of the patient for the entire length of the incision releasing the fascia/performing a component separation. This did free up the fascia considerably. Next I used #1 Ethibond in simple interrupted fashion to primarily close the entire fascial defect. Any bleeding points were controlled using cautery or 3-0 Vicryl stick ties. Once the fascial defect was completely closed we thoroughly irrigated the entire wound. I used a 20 cm x 20 cm piece of ovitex mesh. We placed that as an onlay. We were able to get it to overlap the area of the component separation laterally. It covered for multiple centimeters in all directions over the defect as well. This was secured to underlying fascia using 0 Ethibond in interrupted fashion. It laid nice and flat and tension-free. We performed a final irrigation. We used Tisseel sealant on all the raw surfaces as well as Cooper on all raw surfaces to help prevent seroma and hematoma formation. We also placed a 10 flat Stephon-Valente drain into the wound bed and brought out through a separate stab incision and secured to the skin using 2-0 nylon. We then closed the wound in multiple layers using 0 Vicryl for the deeper and mid layers followed by skin umair for the skin. A piece of silver Acticoat was placed over the wound followed by gauze tape ABDs and abdominal binder. The patient was awakened ,extubated and transferred to recovery in stable condition. My physician physician assistant surgery was present through the entire case. He helped prep the patient. Help with retraction throughout my dissection as well as with mesh placement wound closure and dressing placement. I attest to the content of the Intraoperative Record and any orders documented therein. Any exceptions are noted below.
--- NOTE | 2019-11-23 12:08 | Anesthesiology Progress Note ---
Date of Service November 23, 2019 Anesthesia Post Procedure Vital Signs Vital Signs: Temp Pulse Pulse Resp BP Pulse Ox 11/23/19 12:05 70 15 136/89 96 11/23/19 11:55 82 30 H 162/73 H 100 11/23/19 11:45 82 35 H 167/98 H 100 11/23/19 11:35 99 H 30 H 182/97 H 99 11/23/19 11:26 36.6 C 91 H 20 150/86 H 98 11/23/19 07:46 36.9 C 76 16 161/93 H 95 Pain Intensity Abdomen: Pain Intensity: 4 Transfer of Care Handoff Completed per policy Notes Mental Status: alert / awake / arousable and participated in evaluation Patient Amnestic to Procedure: Yes Nausea / Vomiting: adequately controlled Pain: adequately controlled Airway Patency, RR, SpO2: stable & adequate BP & HR: stable & adequate Hydration State: stable & adequate Anesthetic Complications: no major complications apparent and Pt Satisfied with anesthetic care
[2019-11-23] MEDS ORDERED: GLUCOSE 40% GEL 15 GM TUBE PO PRN (12:37)
[2019-11-23] MEDS ORDERED: GLUCOSE 10 TABS/TUBE PO PRN (12:37)
[2019-11-23] MEDS ORDERED: NON-FORMULARY MEDICATION (Levonorgestrel [Mirena] 20 MCG) IU SCH (12:37)
[2019-11-23] MEDS ORDERED: CARBOHYDRATES FOR HYPOGLYCEMIA PO PRN (12:37)
[2019-11-23] MEDS ORDERED: GLUCAGON FOR INJ 1 MG VIAL SQ PRN (12:37)
[2019-11-23] MEDS ORDERED: NALOXONE HCL 0.4 MG/1 ML VIAL/CARP IV PRN (12:37)
[2019-11-23] MEDS ORDERED: DEXTROSE 50% 50 ML SYRINGE IV PRN (12:37)
[2019-11-23] MEDS ORDERED: KETOROLAC 30 MG/ML VIAL IV PRN (12:37)
[2019-11-23] MEDS: SODIUM CHLORIDE 0.9% 1000ML 1,000 ML IV SCH ×2 (13:43→23:30)
[2019-11-23] MEDS: MORPHINE SULFATE PCA 30 MG/30 ML IV PRN ×2 (14:00→20:53)
[2019-11-23] MEDS: CLINDAMYCIN 600 MG in DEXTROSE 5% 50 ML IV SCH ×2 (16:37→23:36)
[2019-11-23] MEDS: INSULIN ASPART 100 UNITS/ML 3 ML PEN SC SCH ×2 (17:39→21:02)
[2019-11-23] MEDS: ROSUVASTATIN CALCIUM 10 MG TAB PO SCH (21:01)
[2019-11-23] MEDS: FLUTICASONE PROPIONATE NA SPR 16 GM BTL NAE SCH (21:01)
[2019-11-23] MEDS ORDERED: Nursing to Pharmacy Communication SCH (21:30)
[2019-11-24] MEDS: SODIUM CHLORIDE 0.9% 1000ML 1,000 ML IV SCH ×4 (04:09→16:10)
[2019-11-24] MEDS ORDERED: ACETAMINOPHEN 1000 MG/100 ML IV IV SCH (07:15)
[2019-11-24] MEDS ORDERED: NALOXONE HCL 0.4 MG/1 ML VIAL/CARP IV PRN (07:16)
[2019-11-24] MEDS ORDERED: HYDROmorphone PCA 30 MG/30 ML IV PRN (07:16)
--- NOTE | 2019-11-24 07:16 | Surgery Progress Note ---
Date of Service November 24, 2019 Assessment & Plan (1) Incisional hernia: pod 1 not ready for d/c yet will d/c morphine and start dilaudid will add IV acetaminophen and oral ibuprofen d/c planning once pain better controlled Dr. Farrell covering for weekend Subjective pt doing ok but having considerable pain. morphine making her itchy. no n/v. very tired. Physical Exam Physical Exam: alert. no acute distress abd: dressings c/d/i with binder in place. MICKY with small amount of serousanguinous output. Results & Data Vital Signs (Past 12 Hours) Vital Signs Temp Pulse Resp BP Pulse Ox 11/24/19 02:19 36.6 C 77 16 124/82 100 11/23/19 22:53 36.7 C 75 14 109/71 97 11/23/19 19:33 36.5 C 90 18 124/80 95 PG Care Time/CCT Total # of Minutes Spent Total Time Spent with Patient: Total time spent is greater than 50% in coordination of care (as documented) at patient's floor/unit and/or counseling patient: Coding Level of Care Code None Diagnoses Incisional hernia K43.2
--- NOTE | 2019-11-24 07:51 | Anesthesiology Progress Note ---
Date of Service November 24, 2019 Anesthesia Post Procedure Vital Signs Vital Signs: Temp Pulse Pulse Resp BP BP Pulse Ox 11/24/19 07:42 36.7 C 79 17 109/73 98 11/24/19 02:19 36.6 C 77 16 124/82 100 11/23/19 22:53 36.7 C 75 14 109/71 97 11/23/19 19:33 36.5 C 90 18 124/80 95 11/23/19 15:16 36.4 C L 90 18 124/77 95 11/23/19 14:00 36.8 C 85 9 L 144/80 H 97 11/23/19 12:58 36.6 C 77 14 139/83 98 11/23/19 12:30 37 C 73 14 145/85 H 96 11/23/19 12:15 37 C 80 19 146/81 H 94 11/23/19 12:05 70 15 136/89 96 11/23/19 11:55 82 30 H 162/73 H 100 11/23/19 11:45 82 35 H 167/98 H 100 11/23/19 11:35 99 H 30 H 182/97 H 99 11/23/19 11:26 36.6 C 91 H 20 150/86 H 98 Pain Intensity Abdomen: Pain Intensity: 4 Notes Mental Status: alert / awake / arousable and participated in evaluation Patient Amnestic to Procedure: Yes Nausea / Vomiting: adequately controlled Pain: adequately controlled Airway Patency, RR, SpO2: stable & adequate BP & HR: stable & adequate Hydration State: stable & adequate Anesthetic Complications: no major complications apparent
[2019-11-24] MEDS: ACETAMINOPHEN 1,000 MG/100 ML VIAL IV SCH ×3 (07:55→23:24)
[2019-11-24] MEDS: PANTOprazole 40 MG TAB PO SCH (09:14)
[2019-11-24] MEDS: hydroCHLOROthiazide 25 MG TAB PO SCH (09:15)
[2019-11-24] MEDS: IBUPROFEN 800 MG TAB PO SCH ×3 (09:20→21:12)
[2019-11-24] MEDS: SERTRALINE HCL 50 MG TABLET PO SCH (09:21)
[2019-11-24] MEDS: lisinopriL 20 MG TAB PO SCH (09:24)
[2019-11-24] MEDS: CLINDAMYCIN 600 MG in DEXTROSE 5% 50 ML IV SCH (09:27)
[2019-11-24] MEDS: INSULIN ASPART 100 UNITS/ML 3 ML PEN SC SCH ×4 (09:46→21:13)
[2019-11-24] MEDS: FEXOFENADINE 60 MG TAB PO PRN (13:05)
[2019-11-24] MEDS: ONDANSETRON INJ 2 MG/ML 2 ML VIAL IV PRN (17:11)
[2019-11-24] MEDS: ROSUVASTATIN CALCIUM 10 MG TAB PO SCH (21:11)
[2019-11-24] MEDS: FLUTICASONE PROPIONATE NA SPR 16 GM BTL NAE SCH (21:11)
[2019-11-25] MEDS: SODIUM CHLORIDE 0.9% 1000ML 1,000 ML IV SCH ×3 (05:05→18:40)
[2019-11-25] MEDS: ACETAMINOPHEN 1,000 MG/100 ML VIAL IV SCH (08:00)
[2019-11-25] MEDS: hydroCHLOROthiazide 25 MG TAB PO SCH (08:59)
[2019-11-25] MEDS: PANTOprazole 40 MG TAB PO SCH (09:00)
[2019-11-25] MEDS: IBUPROFEN 800 MG TAB PO SCH ×3 (09:00→20:45)
[2019-11-25] MEDS: SERTRALINE HCL 50 MG TABLET PO SCH (09:01)
[2019-11-25] MEDS: lisinopriL 20 MG TAB PO SCH (09:01)
[2019-11-25] MEDS: ONDANSETRON INJ 2 MG/ML 2 ML VIAL IV PRN ×3 (09:03→17:05)
[2019-11-25] MEDS: INSULIN ASPART 100 UNITS/ML 3 ML PEN SC SCH ×4 (09:45→20:46)
[2019-11-25] MEDS: FEXOFENADINE 60 MG TAB PO PRN (10:23)
[2019-11-25] MEDS ORDERED: OXYCODONE HCL IR 5 MG TAB (IMMEDIATE RELEASE) PO PRN ×2 (10:43)
--- NOTE | 2019-11-25 10:52 | Surgery Progress Note ---
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 Farrell Subjective Patient says her pain is better. Itching is still present but improved. Tolerating liquid diet this AM, but required anti-emetic for some nausea. Physical Exam Physical Exam: awake/alert, sitting up in chair Respiratory: normal respiratory effort Gastrointestinal (Abdomen): Inspection/Auscultation: + abdominal surgical incision (c/d/i, abdominal binder in place) Results & Data Vital Signs (Past 12 Hours) Vital Signs Temp Pulse Resp BP BP Pulse Ox 11/25/19 08:59 129/82 11/25/19 08:03 36.9 C 87 16 103/69 97 11/25/19 03:09 37.0 C 81 14 100/66 93 11/24/19 23:31 37 C 88 14 112/78 98 PG Care Time/CCT Total # of Minutes Spent Total Time Spent with Patient: Total time spent is greater than 50% in coordination of care (as documented) at patient's floor/unit and/or counseling patient: Coding Level of Care Code None Diagnoses Incisional hernia K43.2
[2019-11-25] MEDS: HYDROmorphone INJ 1 MG/ML SYRINGE IV PRN (12:30)
[2019-11-25] MEDS: HYDROCODONE/ACETAMOPHEN 5/325MG TAB PO PRN (16:07)
[2019-11-25] MEDS: HYDROmorphone INJ 0.5 MG/0.5 ML SYR IV PRN ×2 (18:40→22:09)
[2019-11-25] MEDS: FLUTICASONE PROPIONATE NA SPR 16 GM BTL NAE SCH (20:44)
[2019-11-25] MEDS: ROSUVASTATIN CALCIUM 10 MG TAB PO SCH (20:45)
[2019-11-26] MEDS: HYDROmorphone INJ 0.5 MG/0.5 ML SYR IV PRN ×6 (00:50→21:20)
[2019-11-26] MEDS: HYDROCODONE/ACETAMOPHEN 5/325MG TAB PO PRN (02:59)
[2019-11-26] MEDS: ONDANSETRON INJ 2 MG/ML 2 ML VIAL IV PRN ×3 (05:10→17:31)
[2019-11-26] MEDS: SODIUM CHLORIDE 0.9% 1000ML 1,000 ML IV SCH ×2 (08:06→20:17)
--- NOTE | 2019-11-26 08:42 | Surgery Progress Note ---
Date of Service November 26, 2019 Assessment & Plan (1) Incisional hernia: POD 3 multiple hernia repair, component sep ok to cont dilaudid try toradol, phenergan keep here today Supervising Physician Co-Signing Physician Notes Patient seen and examined. POD #3 ventral hernia repair with component separation. Still with decent amount of pain. She also states she vomited this morning has been feeling nauseated. She has been passing a small amount of flatus. Afebrile stable vitals, abdomen soft, appropriately tender to palpation. MICKY with serosanguineous drainage. Dressing clean dry and intact. Continue with pain control, patient may develop ileus from repair, advised her to take it slow. If she continues to vomit may need KUB. Subjective nausea, no flatus or BM, not much appetite, pain control marginal Physical Exam Gastrointestinal (Abdomen): Inspection/Auscultation: + abdominal surgical incision (clean, dry) and + abdominal surgical drain present (10 cc overnight); abdomen not distended Percussion/Palpation: abdomen soft Results & Data Vital Signs (Past 12 Hours) Vital Signs Temp Pulse Resp BP Pulse Ox 11/26/19 08:11 36.9 C 91 H 16 147/88 H 93 11/25/19 23:06 36.9 C 79 16 96 PG Care Time/CCT Total # of Minutes Spent Total Time Spent with Patient: Total time spent is greater than 50% in coordination of care (as documented) at patient's floor/unit and/or counseling patient: Coding Level of Care Code None Diagnoses Incisional hernia K43.2
[2019-11-26] MEDS: hydroCHLOROthiazide 25 MG TAB PO SCH (09:16)
[2019-11-26] MEDS: INSULIN ASPART 100 UNITS/ML 3 ML PEN SC SCH ×4 (09:24→21:14)
[2019-11-26] MEDS: lisinopriL 20 MG TAB PO SCH (10:57)
[2019-11-26] MEDS: KETOROLAC 30 MG/ML VIAL IV PRN ×2 (10:57→17:36)
[2019-11-26] MEDS: SERTRALINE HCL 50 MG TABLET PO SCH (10:57)
[2019-11-26] MEDS: PANTOprazole 40 MG TAB PO SCH (10:57)
[2019-11-26] MEDS: PROMETHAZINE HCL 12.5 MG in SODIUM CHLORIDE 0.9% 50 ML IV PRN ×2 (11:10→19:12)
[2019-11-26] MEDS: FLUTICASONE PROPIONATE NA SPR 16 GM BTL NAE SCH (20:17)
[2019-11-26] MEDS: ROSUVASTATIN CALCIUM 10 MG TAB PO SCH (20:17)
[2019-11-27] MEDS: HYDROmorphone INJ 1 MG/ML SYRINGE IV PRN (02:42)
[2019-11-27] MEDS: HYDROCODONE/ACETAMOPHEN 5/325MG TAB PO PRN ×4 (06:42→20:46)
[2019-11-27] MEDS: hydroCHLOROthiazide 25 MG TAB PO SCH (08:25)
[2019-11-27] MEDS: lisinopriL 20 MG TAB PO SCH (08:25)
[2019-11-27] MEDS: PANTOprazole 40 MG TAB PO SCH (08:25)
[2019-11-27] MEDS: SODIUM CHLORIDE 0.9% 1000ML 1,000 ML IV SCH (08:25)
[2019-11-27] MEDS: INSULIN ASPART 100 UNITS/ML 3 ML PEN SC SCH ×4 (08:30→20:40)
[2019-11-27] MEDS: SERTRALINE HCL 50 MG TABLET PO SCH (08:30)
--- NOTE | 2019-11-27 11:29 | Surgery Progress Note ---
Date of Service November 27, 2019 Assessment & Plan (1) Incisional hernia: POD 4 multiple hernia repair, component sep advance diet progressing to po analgesics as above. doing much better. wound is c/d/i and looks great. MICKY with approx 40 cc serous regular diet today. if she does ok overnight will plan d/c home tomorrow. Subjective in chair, feeling better, had full liquid breakfast, some flatus Physical Exam Gastrointestinal (Abdomen): binder in place MICKY 10 cc Results & Data Vital Signs (Past 12 Hours) Vital Signs Temp Pulse Resp BP Pulse Ox 11/27/19 08:10 36.9 C 91 H 16 144/92 H 93 PG Care Time/CCT Total # of Minutes Spent Total Time Spent with Patient: Total time spent is greater than 50% in coordination of care (as documented) at patient's floor/unit and/or counseling patient: Coding Level of Care Code None Diagnoses Incisional hernia K43.2
[2019-11-27] MEDS ORDERED: SIMETHICONE 80 MG CHEW PO PRN (20:08)
[2019-11-27] MEDS: FLUTICASONE PROPIONATE NA SPR 16 GM BTL NAE SCH (20:39)
[2019-11-27] MEDS: ROSUVASTATIN CALCIUM 10 MG TAB PO SCH (20:39)
[2019-11-28] MEDS: HYDROCODONE/ACETAMOPHEN 5/325MG TAB PO PRN ×3 (02:04→10:22)
[2019-11-28] MEDS: hydroCHLOROthiazide 25 MG TAB PO SCH (08:27)
[2019-11-28] MEDS: lisinopriL 20 MG TAB PO SCH (08:27)
[2019-11-28] MEDS: PANTOprazole 40 MG TAB PO SCH (08:28)
[2019-11-28] MEDS: SERTRALINE HCL 50 MG TABLET PO SCH (08:28)
[2019-11-28] MEDS: INSULIN ASPART 100 UNITS/ML 3 ML PEN SC SCH ×2 (08:29→12:13)
--- NOTE | 2019-11-28 11:21 | Surgery Progress Note ---
Date of Service November 28, 2019 Assessment & Plan (1) Ventral hernia: s/p ventral hernia repair progressing well, tolerating a regular diet, okay to take gas-ex for gas pains if needed pain controlled with prn medication will ask RN to remove MICKY drain prior to discharge okay to shower, change midline dressing daily plan for discharge today; instructions given will ask pt to follow up in clinic with dr. gu within 1-2 weeks, will d/c umair at that time as above. ok for d/c. drain scant/dc today instructions given/questions aswered. Subjective Patient feeling well. Tolerating diet, some gas pains which are manageable. Patient had some R lower leg stiffness that improved with walking. Physical Exam Physical Exam: awake.alert Gastrointestinal (Abdomen): Inspection/Auscultation: + abdominal surgical drain present (MICKY serosang.) abdominal binder in place Musculoskeletal: No lower extremity edema/swelling/redness Results & Data Vital Signs (Past 12 Hours) Vital Signs Temp Pulse Resp BP Pulse Ox 11/28/19 08:04 37.0 C 74 18 121/85 95 PG Care Time/CCT Total # of Minutes Spent Total Time Spent with Patient: Total time spent is greater than 50% in coordination of care (as documented) at patient's floor/unit and/or counseling patient: Coding Level of Care Code None Diagnoses Ventral hernia K43.9
--- NOTE | 2019-11-30 16:13 | Discharge Summary ---
Date of Service November 30, 2019 Admission HPI Per Admitting Provider 49-year-old with a rather extensive past surgical history now presents with incisional hernias found on CT scan. They are symptomatic and uncomfortable for her and she would like to have them repaired. Principal Diagnosis Ventral hernia-multiple Discharge Exam Gastrointestinal (Abdomen) Inspection/Auscultation: + abdominal surgical incision (clean, dry, drain removed prior to discharge) Percussion/Palpation: abdomen soft Discharge Data Allergies Allergy/AdvReac Type Severity Reaction Status Date / Time pineapple Allergy Severe throat Verified 11/23/19 07:39 closes up Penicillins Allergy Mild HIVES A Verified 11/23/19 07:39 BABY mold Allergy Unknown TESTED Verified 11/23/19 07:39 ALLERGY TO MOLDS-SINUS ISSUES Sulfa (Sulfonamide AdvReac Mild NAUSEA Verified 11/23/19 07:39 Antibiotics) Procedures Performed Operation Date: 11/23/19 08:40 Actual Procedures p Multiple Open Ventral Hernia Repair with Ovitex Mesh, Component Separation, Enterolysis(Not Applicable) - Sarbjit Andrade, Hospital Course (1) Ventral hernia: 49 y/o female underwent elective repair of multiple incisional hernias which required component separation with mesh placement. She was admitted to the surgical floor. Pain control was marginal for the first 48 hours. Combination of Dilaudid and Toradol had her pain better managed by day three. She continued to have nausea however which improved by day 4. She was able to tolerate an advancing diet and on day 5 was tolerating oral analgesics. She was stable for discharge home. Total Time Total Time Spent Total Time Spent (In Minutes): 10 Discharge Plan Discharge Items Patient Disposition: Home - Self-Care Reason For Visit: Ventral Hernia Discharge Diagnosis: ventral hernia repair Activity: Per Instructions section Lifting: No more than 10 pounds Bathing Comment: you may shower; no soaking in tubs/pools Exercise/Sports: Wait until after follow-up appointment Driving/Machine Use: do not resume driving while taking narcotics for pain Non-emergency contact: Surgeon Call non-emergency contact if: you have any medication questions, your symptoms worsen, your pain is not controlled, your pain is worsening, your pain is unusual for you, you have a fever, your temperature is above 101.5, your wound has increased redness, your wound has increased drainage and your wound pain has increased Follow-up/Referrals: Sarbjit Andrade, [Surgeon] - 12/08/19 10:30 am (You have a follow up appt with Dr. Andrade on WednesdayDecember 07 at 1030am. Please arrive 15 minutes prior to your appt, if this appt does not fit your schedule pleae call [phone] to reschedule. Remember to bring your face mask with you. You had an appt on 11/28 that has been cancelled. [address] [place] [address] [address] Tim[address] [place], [place] ) David Everett MD [Primary Care Provider] - 12/04/19 8:00 am (You have a follow up appt WednesdayDecember 03 at 800am with Tayler Grace. Please arrive at 750am, if this appt does not fit your schedule please call [phone] to reschedule. Remember to bring your face mask with you. [address] [place]) Diet: Regular Addtl Attending Provider Instructions: Change your abdominal dressing daily with dry gauze and adhere with medical tape. Your surgical umair will be removed when you follow up in clinic. Pending Studies at Discharge: No Stand-Alone Forms: My [facility] Medications and DC Order Prescriptions: New hydrocodone-acetaminophen 5-325 mg tablet 1 tab PO Q8H PRN (Reason: pain) Qty: 40 RF: 0 Continued metformin 500 mg Tablet 500 mg PO TID RF: 0 lisinopril 20 mg Tablet 20 mg PO QAM RF: 0 sertraline 25 mg Tablet 25 mg PO QAM RF: 0 naproxen [Naprosyn] 500 mg Tablet 500 mg PO BID RF: 0 rosuvastatin 10 mg Tablet 10 mg PO QPM RF: 0 Januvia 100 mg Tablet 100 mg PO QAM RF: 0 ascorbic acid (vitamin C) [Vitamin C] 1,000 mg Tablet 1 g PO QAM RF: 0 omeprazole 40 mg Capsule,Delayed Release(Dr/Ec) 40 mg PO QAM RF: 0 aspirin 81 mg Tablet,Delayed Release (Dr/Ec) 81 mg PO HS RF: 0 hydrochlorothiazide 25 mg Tablet 25 mg PO QAM RF: 0 diphenhydramine-acetaminophen [Tylenol PM Extra Strength] 25-500 mg Tablet 2 tab PO HS RF: 0 fluticasone propionate [Flonase Allergy Relief] 50 mcg/actuation Spra y,Suspension 1 spray INTRANASAL HS RF: 0 Kia-D 24 Hour 180-240 mg Tablet Extended Release 24 Hr 1 tab PO QAM RF: 0 cholecalciferol (vitamin D3) [Vitamin D3] 125 mcg (5,000 unit) Tablet 125 mcg PO QAM RF: 0 Airborne (ascorbate sodium) 333-1.7 mg Tablet,Chewable 1.7 mg PO QAM RF: 0 Ozempic 0.25 mg or 0.5 mg(2 mg/1.5 mL) Pen Injector 0.5 mg SUBCUT WK RF: 0 Mirena 20 mcg/24 hours (5 yrs) 52 mg Intrauterine Device 20 mcg INTRAUTERINE UD RF: 0 Discharge Orders: Discharge Order (Routine); Ordered 11/28/19 Ordered By: Dawna Gaitan Admission Data Admit Date/Time: 11/25/19 12:25 Attending Provider: Sarbjit Andrade Admit Provider: Sarbjit Andrade Primary Care Provider: David Everett Other Interventions: Discharge Summary Assessment (RN) Last Done: 11/28/19 11:41 DC Date/Time DO NOT enter until pt leaves facility: 11/28/19 13:52 Coding Level of Care Code D/C Day Management <30 mins Diagnoses Ventral hernia K43.9
== END 2019-11-28 13:52 | disposition home or self-care (01) | DRG 355 ==
LOC: ASU 07:09 → 3N 07:09

== ENCOUNTER 2020-02-23 10:30 | Observation (INO) ==
--- NOTE | 2020-02-23 11:22 | Emergency Department Note ---
History of Present Illness General Chief complaint: Abdominal Pain Stated complaint: ABD PAIN SENT BY DR ANDRADE Time Seen by Provider: 02/23/20 11:00 History of Present Illness Maximum Pain Intensity: 2 This is a 49-year-old female that presents to the emergency department via private vehicle with complaints "abdominal pain, sent by Dr. Andrade". Patient underwent open ventral hernia repair x5 with mesh placement on 11/23/2019. She notes the surgery has gone overall quite well however has had some minor complications and has had to see a wound doctor for this noting the umbilicus wound. She states that she was all right up until this past Wednesday when she notes that she developed upper abdominal discomfort that is worse with certain movements. Mildly better with rest. No trauma, injury, fevers or chills. It seems to be worse with a deep breath at times as well. Patient notes that she is a diabetic. Current pain is a 2/10 but much higher with movements. She was seen by her surgeon today and referred here for further evaluation and management. Home Medications Home Medications Medication Instructions Recorded Confirmed Type Airborne (ascorbate sodium) 1.7 mg PO QAM 11/06/19 02/23/20 History Kia-D 24 Hour 1 tab PO QAM 11/06/19 02/23/20 History Mirena 20 mcg INTRAUTERINE UD 11/06/19 02/23/20 History Ozempic 0.5 mg SUBCUT WK 11/06/19 02/23/20 History ascorbic acid (vitamin C) [Vitamin 1 g PO QAM 11/06/19 02/23/20 History C] aspirin 81 mg PO HS 11/06/19 02/23/20 History cholecalciferol (vitamin D3) 125 mcg PO QAM 11/06/19 02/23/20 History [Vitamin D3] diphenhydramine-acetaminophen 2 tab PO HS 11/06/19 02/23/20 History [Tylenol PM Extra Strength] fluticasone propionate [Flonase 1 spray INTRANASAL HS 11/06/19 02/23/20 History Allergy Relief] hydrochlorothiazide 25 mg PO QAM 11/06/19 02/23/20 History lisinopril 20 mg PO QAM 11/06/19 02/23/20 History metformin 500 mg PO TID 11/06/19 02/23/20 History naproxen [Naprosyn] 500 mg PO BID 11/06/19 02/23/20 History omeprazole 40 mg PO QAM 11/06/19 02/23/20 History rosuvastatin 10 mg PO QPM 11/06/19 02/23/20 History sertraline 25 mg PO QAM 11/06/19 02/23/20 History clindamycin HCl [Cleocin HCl] 300 mg PO TID 7 Days #21 cap 02/23/20 Rx hydrocodone-acetaminophen [Donnellson] 1 - 2 tab PO Q4H PRN #10 tab 02/23/20 Rx Allergies Allergy/AdvReac Type Severity Reaction Status Date / Time pineapple Allergy Severe throat Verified 02/23/20 11:15 closes up Penicillins Allergy Mild HIVES A Verified 02/23/20 11:15 BABY mold Allergy Unknown TESTED Verified 02/23/20 11:15 ALLERGY TO MOLDS-SINUS ISSUES tramadol Allergy slurred Verified 02/23/20 11:15 speech, nauseous, dizzy Sulfa (Sulfonamide AdvReac Mild NAUSEA Verified 02/23/20 11:15 Antibiotics) Past Med/Surg History Medical History Ankylosing spondylitis Anxiety Diabetes mellitus, type 2 GERD (gastroesophageal reflux disease) History of migraine headaches Hypercholesterolemia Hypertension IBS (irritable bowel syndrome) IUD (intrauterine device) in place Mirena inserted in OR 10/11/2015 Menorrhagia with irregular cycle Pancreatic tumor BENIGN Stress incontinence Surgical History H/O breast biopsy RT H/O ventral hernia repair (11/23/19) Open Ventral Hernia Repair x 5 with Ovitex Mesh, Component Separation, Enterolysis Dr. 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 History of wisdom tooth extraction Family History Grandmother Hypertension Grandfather Hypertension Father Hypertension Grandmother (Maternal) Diabetes Grandfather (Maternal) Heart disease Grandfather (Paternal) Heart disease Diabetes Denies family history of Ovarian cancer Breast cancer Colorectal cancer Social History Smoking Status: Never smoker Second Hand Exposure: Yes (as a child); Do You Dip or Chew Tobacco: No; Hx Alcohol Use: Yes Alcohol type: hard liquor Hx Substance Use: No Preferred Language: Mosotho Communication Ability: Effective Dispatcher Chief [employer] Slurry Required: No Beliefs That Will Affect Care: None marital status: Single Current Living Situation: Parent current occupational status: employed 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 Other Information That Helps Us Care for You: No Feels Safe at Home: Yes Safety Concerns: Feels Safe At This Time Assistive Devices: Contacts and Glasses Assistive Devices Comment: contacts Review of Systems A total of 10 systems reviewed and were otherwise negative Physical Exam Vital Signs Vital Signs - 24 hr 02/23/20 10:37 02/23/20 12:24 Temperature 36.9 C Temperature Source Oral Pulse Rate 85 Pulse Rate [Right Finger] 69 Pulse Rhythm [Right Finger] Regular Pulse Strength [Right Finger] Normal Respiratory Rate 16 18 Respiratory Effort / Characteristics Non-Labored Non-Labored Spontaneous Respiratory Depth Normal Normal Respiratory Pattern Regular Blood Pressure 112/75 Blood Pressure [Right Arm] 125/77 Blood Pressure Mean 87 Blood Pressure Mean [Right Arm] 93 Blood Pressure Position [Right Arm] Sitting Pulse Oximetry 95 97 Oxygen Delivery Method Room Air Room Air Sepsis Recent Fever Within 48 Hours No Sepsis New/Unexplained Change in Mental Status No Sepsis Action Taken by Nursing No Action Required VITAL SIGNS - Vital signs and nursing notes were reviewed. Stable and afebrile. GENERAL - 49-year-old female appearing her stated age who is in no acute distress. Communicates well with provider and answers questions appropriately. SKIN - Without rashes. No meningeal or petechial rash. HEAD - NC/AT. EYES - PERRL with EOMI bilaterally. Sclera anicteric. EARS - No deformities of external structures noted on gross examination rajendra aterally. NOSE - Midline and without cyanosis. No epistaxis or purulent drainage noted. MOUTH/OROPHARYNX - Without perioral cyanosis. NECK - Neck with FROM. No nuchal rigidity. LUNGS - Chest wall symmetric without accessory muscle use, intercostals retractions, or central cyanosis. Normal vesicular breath sounds CTA B/L. No wheezes, rales, or rhonchi appreciated. CARDIAC - RRR with S1/S2. No murmur, rubs, or gallops appreciated. ABDOMEN - Abdominal contour normal without pulsations or visible masses. BS normoactive all four quadrants. Mild generalized epigastric abdominal discomfort to palpation. No palpable masses, hepatosplenomegaly, or ascites noted. EXTREMITIES - No clubbing or peripheral cyanosis. No pretibial edema present. +5/5 strength noted in UE/LE bilaterally. NEUROLOGIC - Cranial nerves II through XII grossly intact. PSYCH - A&Ox3 and cooperates fully with examiner. Pt is very pleasant and interacts well with examiner. Course Administered Medications Clindamycin Phosphate 600 mg/ (Dextrose) 54 mls @ 100 mls/hr IV Q8H [facility]ARON Stop: 03/01/20 15:59 Last Admin: 02/23/20 15:42 Dose: 100 mls/hr Documented by: [id number] Miscellaneous (Fexofenadine-Pseudoephedrine [Kia-D 24 Hour]Order Awaiting Action) 1 ea N/A QS [facility] Stop: 03/24/20 15:59 Last Admin: 02/23/20 15:41 Dose: Not Given Documented by: [id number] Miscellaneous (Semaglutide [Ozempic] - Order Awaiting Action) 1 ea N/A QS [facility] Stop: 03/24/20 15:59 Last Admin: 02/23/20 15:41 Dose: Not Given Documented by: [id number] Discontinued Medications Acetaminophen (Acetaminophen 325 Mg Tab) 650 mg PO NOW STA Stop: 02/23/20 13:27 Last Admin: 02/23/20 13:37 Dose: 650 mg Documented by: [id number] Ioversol (Ioversol 100ml) 94 ml IV ONCE ONE Stop: 02/23/20 12:02 Last Admin: 02/23/20 12:02 Dose: 94 ml Documented by: [id number] Medical Decision Making Laboratory Data Result diagrams: 02/23/20 11:20 02/23/20 11:20 Lab Results 02/23/20 02/23/20 Range/Units 11:20 11:20 WBC 13.24 H (4.8-10.8) K/uL RBC 4.58 (4.2-5.4) M/uL Hgb 11.3 L (12.0-16.0) g/dL Hct 36.9 L (37-47) % MCV 80.6 (80-100) fL MCH 24.7 L (25-34) pg MCHC 30.6 L (32-36) g/dL RDW Std Deviation 46.0 (36.4-46.3) fL RDW Coeff of Leland 15.8 H (11.5-14.5) % Plt Count 777 H (130-400) K/uL MPV 8.6 (7.4-10.4) fL Immature Gran % (Auto) 0.2 % Neut % (Auto) 59.5 % Lymph % (Auto) 30.7 % [place] % (Auto) 7.8 % Eos % (Auto) 1.6 % Baso % (Auto) 0.2 % Neut # (Auto) 7.89 H (1.4-6.5) K/uL Lymph # (Auto) 4.06 H (1.2-3.4) K/uL [place] # (Auto) 1.03 H (0.11-0.59) K/uL Eos # (Auto) 0.21 (0-0.5) K/uL Baso # (Auto) 0.02 (0-0.2) K/uL Immature Gran # (Auto) 0.03 H (0.00-0.02) K/uL Sodium 136 (136-145) mmol/L Potassium 4.0 (3.5-5.1) mmol/L Chloride 101 (98-107) mmol/L Carbon Dioxide 30 (21-32) mmol/L Anion Gap 5.0 (3-11) BUN 19 H (7-18) mg/dl Creatinine 0.82 (0.6-1.2) mg/dl Est Cr Clr Drug Dosing 106.0 ml/min Est GFR ( Amer) 98.8 Est GFR (Non-Af Amer) 85.2 BUN/Creatinine Ratio 23.4 H (10-20) Glucose 98 (70-99) mg/dl Calcium 9.6 (8.5-10.1) mg/dl Magnesium 2.1 (1.8-2.4) mg/dl Total Bilirubin 0.3 (0.2-1) mg/dl AST 10 L (15-37) U/L ALT 16 (12-78) U/L Alkaline Phosphatase 115 (45-117) U/L Total Protein 7.9 (6.4-8.2) gm/dl Albumin 3.3 L (3.4-5.0) gm/dl Globulin 4.6 H (2.5-4.0) gm/dl Albumin/Globulin Ratio 0.7 L (0.9-2) Lipase 120 (73-393) U/L Imaging Data Radiologist's Impression: CT abd pelvis IV con only CLINICAL HISTORY: Upper abdominal pain. History of ventral hernia x5 repair in November. COMPARISON STUDY: 07/03/2019 TECHNIQUE: The patient was scanned in a dynamic helical fashion during intravenous administration of 94 cc of Optiray 320 A dose lowering technique was utilized adhering to the principles of ALARA. CT DOSE: 1200.90 mGy.cm FINDINGS: Lower chest: There are minor left basilar atelectatic changes. There are no pleural effusions there is a small pericardial effusion. Liver: The liver has a somewhat nodular serosal surface raising the possibility of underlying cirrhosis. Gallbladder: Not visualized presumed surgically absent Spleen: Surgically absent Pancreas: There are postsurgical changes of distal pancreatectomy Adrenal glands: Unremarkable. Kidneys: There is symmetric renal cortical enhancement. The kidneys are normal in size without hydronephrosis. Bowel: There are no transition zones indicate bowel obstruction. There is no evidence of acute diverticulitis. The appendix is not visualized with certainty. There are no findings to indicate acute appendicitis. Peritoneum: There is no intraperitoneal free air or abdominal ascites. Vasculature: The abdominal aorta is normal in course and caliber. Adenopathy: None. Pelvic viscera: There is an indwelling IUD. No pathologic adnexal masses are visualized Skeletal structures: There are postsurgical changes of interval ventral hernia repairs. There are several areas of suspected residual/recurrent tiny hernias. There is anterior abdominal wall fluid collection abutting the superficial muscular fascia measuring 16 x 15 x 1.4 cm. There is mild edema within the anterior abdominal wall fat, and a cellulitis cannot be excluded. There are no gas bubbles within the fluid collection. IMPRESSION: 1. No evidence of bowel obstruction. No evidence of free air 2. Postsurgical changes of interval ventral hernia repair. There is a 16 x 15 x 1.4 cm anterior abdominal wall fluid collection abutting the superficial muscular fascia. This likely represents a postsurgical hematoma/seroma. It is not possible to determine whether this is infected. There are no air bubbles within the collection. 3. Multiple tiny recurrent fat-containing ventral hernias are suspected. 4. Infiltration of the subcutaneous fat of the anterior abdominal wall. Clinical correlation in regards to cellulitis is recommended ACT 112: Negative or not required by law. Electronically signed by: Yasmany Petersen M.D. 02/23/2020 12:35 PM MDM Narrative Patient was seen and evaluated as above in room B02. Review was performed of nursing notes and vital signs. I did review pertinent previous visits and patient history. After obtaining a thorough history and physical examination the above work up was performed. She presents to us today referred by her general surgeon for evaluation of new onset abdominal discomfort. IV access was established. Labs were drawn. There is leukocytosis at 13.24 with mild anemia at 11.3. Mild dehydration with BUN at 19. No evidence of kidney failure. No evidence of liver failure. Patient platelet count is quite elevated at 777. A CT scan was obtained and does reveal no bowel obstruction. No free air. There are some postsurgical changes noted with a 16 x 15 x 1.4 cm anterior abdominal wall fluid collection abutting the superior muscular fascia. Could be neuroma/seroma versus infection. I did have our staff page the on-call surgical staff who came to evaluate the patient. They will admit for further evaluation and management. Patient initially declined pain medication but then requested some p.o. Tylenol which was ordered for her. Please refer to further documentation regarding her stay. In the evaluation and treatment of this patient the following differential diagnoses were entertained: Infection, obstruction, electrolyte disturbance, postoperative discomfort, seroma, among others Impression & Plan Abdominal pain, Postoperative seroma Discharge Plan Visit Data Chief Complaint: Abdominal Pain Stated Complaint: ABD PAIN SENT BY DR ANDRADE ED Provider: Angel Garcia ED Midlevel Provider: Brennen Caraballo Discharge Problem: Abdominal pain, Postoperative seroma Patient Disposition: Admitted As Inpatient Condition: Good Discharge Instructions Interventions: ED Discharge Assessment Last Done: 02/23/20 14:06
[2020-02-23 11:35] LABS: Basophils # (auto) 0.02 K/uL (0-0.2); Basophils % (auto) 0.2 %; Eosinophils # (auto) 0.21 K/uL (0-0.5); Eosinophils % (auto) 1.6 %; Hematocrit (blood only) 36.9 % (37-47); Hemoglobin 11.3 g/dL (12.0-16.0); Immature Granulocytes # (auto) 0.03 K/uL (0.00-0.02); Immature Granulocytes % (auto) 0.2 %; Lymphocytes # (auto) 4.06 K/uL (1.2-3.4); Lymphocytes % (auto) 30.7 %; Mean Corpuscular Hemoglobin 24.7 pg (25-34); Mean Corpuscular Hgb Conc 30.6 g/dL (32-36); Mean Corpuscular Volume 80.6 fL (80-100); Mean Platelet Volume 8.6 fL (7.4-10.4); Monocytes # (auto) 1.03 K/uL (0.11-0.59); Monocytes % (auto) 7.8 %; Neutrophils # (auto) 7.89 K/uL (1.4-6.5); Neutrophils % (auto) 59.5 %; Platelet Count 777 K/uL (130-400); RDW Coefficient of Variation 15.8 % (11.5-14.5); Red Blood Count 4.58 M/uL (4.2-5.4); White Blood Count 13.24 K/uL (4.8-10.8)
[2020-02-23 11:53] LABS: Albumin Level 3.3 gm/dl (3.4-5.0); BUN Creatinine Ratio 23.4 (10-20); Calcium 9.6 mg/dl (8.5-10.1); Est GFR (African American) 98.8; Est GFR (Non-African American) 85.2; Magnesium 2.1 mg/dl (1.8-2.4)
[2020-02-23 11:56] LABS: Albumin Globulin Ratio 0.7 (0.9-2); Bilirubin,Total 0.3 mg/dl (0.2-1); Globulin 4.6 gm/dl (2.5-4.0); Total Protein 7.9 gm/dl (6.4-8.2)
[2020-02-23] MEDS ORDERED: IOVERSOL 100ml IV ONE (12:01)
--- NOTE | 2020-02-23 12:36 | CT Scan Report ---
CT abd pelvis IV con only CLINICAL HISTORY: Upper abdominal pain. History of ventral hernia x5 repair in November. COMPARISON STUDY: 07/03/2019 TECHNIQUE: The patient was scanned in a dynamic helical fashion during intravenous administration of 94 cc of Optiray 320 A dose lowering technique was utilized adhering to the principles of ALARA. CT DOSE: 1200.90 mGy.cm FINDINGS: Lower chest: There are minor left basilar atelectatic changes. There are no pleural effusions there i s a small pericardial effusion. Liver: The liver has a somewhat nodular serosal surface raising the possibility of underlying cirrhos is. Gallbladder: Not visualized presumed surgically absent Spleen: Surgically absent Pancreas: There are postsurgical changes of distal pancreatectomy Adrenal glands: Unremarkable. Kidneys: There is symmetric renal cortical enhancement. The kidneys are normal in size without hydron ephrosis. Bowel: There are no transition zones indicate bowel obstruction. There is no evidence of acute divert iculitis. The appendix is not visualized with certainty. There are no findings to indicate acute appe ndicitis. Peritoneum: There is no intraperitoneal free air or abdominal ascites. Vasculature: The abdominal aorta is normal in course and caliber. Adenopathy: None. Pelvic viscera: There is an indwelling IUD. No pathologic adnexal masses are visualized Skeletal structures: There are postsurgical changes of interval ventral hernia repairs. There are sev eral areas of suspected residual/recurrent tiny hernias. There is anterior abdominal wall fluid colle ction abutting the superficial muscular fascia measuring 16 x 15 x 1.4 cm. There is mild edema within the anterior abdominal wall fat, and a cellulitis cannot be excluded. There are no gas bubbles withi n the fluid collection. IMPRESSION: 1. No evidence of bowel obstruction. No evidence of free air 2. Postsurgical changes of interval ventral hernia repair. There is a 16 x 15 x 1.4 cm anterior abdom inal wall fluid collection abutting the superficial muscular fascia. This likely represents a postsur gical hematoma/seroma. It is not possible to determine whether this is infected. There are no air yayo bles within the collection. 3. Multiple tiny recurrent fat-containing ventral hernias are suspected. 4. Infiltration of the subcutaneous fat of the anterior abdominal wall. Clinical correlation in [facility] ds to cellulitis is recommended ACT 112: Negative or not required by law. Electronically signed by: Yasmany Petersen M.D. 02/23/2020 12:35 PM
--- NOTE | 2020-02-23 13:22 | History & Physical Report ---
Date of Service February 23, 2020 Assessment & Plan (1) Postoperative seroma: Will admit for IV antibiotics and analgesics. Repeat CBC in AM. Thin fluid collection on CT, no plans for drainage at this time. History of Present Illness Primary Care Provider: David Everett MD 49 y/o female 3 mos s/p multiple incisional hernia repair treated by wound clinic for seroma. Wound vac was discontinued last week, she had has increasing abdominal pain since then. Not able to manage at home, was seen in clinic today and referred to ED for CT and labs. Allergies Allergy/AdvReac Type Severity Reaction Status Date / Time pineapple Allergy Severe throat Verified 02/23/20 11:15 closes up Penicillins Allergy Mild HIVES A Verified 02/23/20 11:15 BABY mold Allergy Unknown TESTED Verified 02/23/20 11:15 ALLERGY TO MOLDS-SINUS ISSUES tramadol Allergy slurred Verified 02/23/20 11:15 speech, nauseous, dizzy Sulfa (Sulfonamide AdvReac Mild NAUSEA Verified 02/23/20 11:15 Antibiotics) Home Medications Home Medications Medication Instructions Recorded Confirmed Type Airborne (ascorbate sodium) 1.7 mg PO QAM 11/06/19 02/23/20 History Kia-D 24 Hour 1 tab PO QAM 11/06/19 02/23/20 History Mirena 20 mcg INTRAUTERINE UD 11/06/19 02/23/20 History Ozempic 0.5 mg SUBCUT WK 11/06/19 02/23/20 History ascorbic acid (vitamin C) [Vitamin 1 g PO QAM 11/06/19 02/23/20 History C] aspirin 81 mg PO HS 11/06/19 02/23/20 History cholecalciferol (vitamin D3) 125 mcg PO QAM 11/06/19 02/23/20 History [Vitamin D3] diphenhydramine-acetaminophen 2 tab PO HS 11/06/19 02/23/20 History [Tylenol PM Extra Strength] fluticasone propionate [Flonase 1 spray INTRANASAL HS 11/06/19 02/23/20 History Allergy Relief] hydrochlorothiazide 25 mg PO QAM 11/06/19 02/23/20 History lisinopril 20 mg PO QAM 11/06/19 02/23/20 History metformin 500 mg PO TID 11/06/19 02/23/20 History naproxen [Naprosyn] 500 mg PO BID 11/06/19 02/23/20 History omeprazole 40 mg PO QAM 11/06/19 02/23/20 History rosuvastatin 10 mg PO QPM 11/06/19 02/23/20 History sertraline 25 mg PO QAM 11/06/19 02/23/20 History Past Med/Surg History Medical History Ankylosing spondylitis Anxiety Diabetes mellitus, type 2 GERD (gastroesophageal reflux disease) History of migraine headaches Hypercholesterolemia Hypertension IBS (irritable bowel syndrome) IUD (intrauterine device) in place Mirena inserted in OR 10/11/2015 Menorrhagia with irregular cycle Pancreatic tumor BENIGN Stress incontinence Surgical History H/O breast biopsy RT H/O ventral hernia repair (11/23/19) Open Ventral Hernia Repair x 5 with Ovitex Mesh, Component Separation, Enterolysis Dr. 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 History of wisdom tooth extraction Family History Grandmother Hypertension Grandfather Hypertension Father Hypertension Grandmother (Maternal) Diabetes Grandfather (Maternal) Heart disease Grandfather (Paternal) Heart disease Diabetes Denies family history of Ovarian cancer Breast cancer Colorectal cancer Social History Smoking Status: Never smoker Second Hand Exposure: Yes ( A CHILD); Hx Alcohol Use: Yes Hx Substance Use: No Preferred Language: Turkish 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 Required: No Beliefs That Will Affect Care: None marital status: Single Current Living Situation: Family current occupational status: employed 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) Vital Signs (Past 12 Hours) Vital Signs Temp Pulse Pulse Resp BP BP Pulse Ox 02/23/20 12:24 69 18 125/77 97 02/23/20 10:37 36.9 C 85 16 112/75 95 PG Care Time/CCT Total # of Minutes Spent Total Time Spent with Patient: Total time spent is greater than 50% in coordination of care (as documented) at patient's floor/unit and/or counseling patient: Coding Level of Care Code None Diagnoses Postoperative seroma
[2020-02-23] MEDS ORDERED: ACETAMINOPHEN 325 MG TAB PO STA (13:26)
[2020-02-23 13:40] LABS: Appearance Urine Clear (Clear); Bilirubin Urine Negative (Negative); Blood Urine Negative (Negative); Color Urine Yellow; Glucose Urine UA Negative (Negative); Ketones Urine Negative (Negative); Leukocyte Esterase Urine Negative (Negative); Nitrite Urine Negative (Negative); Protein Urine Negative (Negative); Specific Gravity Urine 1.008 (1.000-1.030); Urobilinogen Urine Negative (Negative); pH Urine 6.5 (4.5-7.5)
[2020-02-23] MEDS ORDERED: ONDANSETRON INJ 2 MG/ML 2 ML VIAL IV PRN (14:46)
[2020-02-23] MEDS ORDERED: MoRPHine SULFATE 4 MG/ML 1 ML CARP\\VIAL IV PRN (14:46)
[2020-02-23] MEDS ORDERED: MoRPHine SULFATE 2 MG/ML CARP IV PRN (14:46)
[2020-02-23] MEDS ORDERED: HYDROCODONE/ACETAMOPHEN 5/325MG TAB PO PRN (14:46)
[2020-02-23] MEDS ORDERED: CARBOHYDRATES FOR HYPOGLYCEMIA PO PRN (15:15)
[2020-02-23] MEDS ORDERED: DEXTROSE 50% 50 ML SYRINGE IV PRN (15:15)
[2020-02-23] MEDS ORDERED: GLUCAGON FOR INJ 1 MG VIAL IM PRN (15:15)
[2020-02-23] MEDS ORDERED: GLUCOSE 10 TABS/TUBE PO PRN (15:15)
[2020-02-23] MEDS ORDERED: GLUCOSE 40% GEL 15 GM TUBE PO PRN (15:15)
[2020-02-23] MEDS: CLINDAMYCIN 600 MG in DEXTROSE 5% 50 ML IV SCH (15:42)
[2020-02-23] MEDS: INSULIN ASPART 100 UNITS/ML 3 ML PEN SC SCH ×2 (17:56→21:35)
[2020-02-23] MEDS: HYDROCODONE/ACETAMOPHEN 5/325MG TAB PO PRN (19:06)
[2020-02-23] MEDS: ASPIRIN 81 MG ECTAB PO SCH (20:43)
[2020-02-23] MEDS: HYDROmorphone INJ 1 MG/ML SYRINGE IV PRN (20:43)
[2020-02-23] MEDS: diphenhydrAMINE Capsule 25 MG CAP PO SCH (20:43)
[2020-02-23] MEDS: ACETAMINOPHEN 500 MG TAB PO SCH (20:43)
[2020-02-23] MEDS: ROSUVASTATIN CALCIUM 10 MG TAB PO SCH (20:44)
[2020-02-23] MEDS: FLUTICASONE PROPIONATE NA SPR 16 GM BTL NAE SCH (20:44)
[2020-02-24] MEDS: CLINDAMYCIN 600 MG in DEXTROSE 5% 50 ML IV SCH ×4 (00:01→23:52)
[2020-02-24] MEDS: HYDROmorphone INJ 1 MG/ML SYRINGE IV PRN ×2 (00:34→20:07)
[2020-02-24 06:22] LABS: Basophils # (auto) 0.03 K/uL (0-0.2); Basophils % (auto) 0.2 %; Eosinophils # (auto) 0.23 K/uL (0-0.5); Eosinophils % (auto) 1.9 %; Hematocrit (blood only) 34.8 % (37-47); Hemoglobin 10.6 g/dL (12.0-16.0); Immature Granulocytes # (auto) 0.05 K/uL (0.00-0.02); Immature Granulocytes % (auto) 0.4 %; Lymphocytes # (auto) 3.82 K/uL (1.2-3.4); Lymphocytes % (auto) 31.1 %; Mean Corpuscular Hemoglobin 24.7 pg (25-34); Mean Corpuscular Hgb Conc 30.5 g/dL (32-36); Mean Corpuscular Volume 80.9 fL (80-100); Mean Platelet Volume 8.5 fL (7.4-10.4); Monocytes # (auto) 0.99 K/uL (0.11-0.59); Neutrophils # (auto) 7.18 K/uL (1.4-6.5); Neutrophils % (auto) 58.4 %; Platelet Count 740 K/uL (130-400); RDW Coefficient of Variation 15.8 % (11.5-14.5); RDW Standard Deviation 46.7 fL (36.4-46.3)
[2020-02-24] MEDS: hydroCHLOROthiazide 25 MG TAB PO SCH (08:28)
[2020-02-24] MEDS: SERTRALINE HCL 50 MG TABLET PO SCH (08:28)
[2020-02-24] MEDS: ASCORBIC ACID 500 MG TAB PO SCH (08:28)
[2020-02-24] MEDS: CHOLECALCIFEROL 1,000 UNITS 25 MCG TAB PO SCH (08:28)
[2020-02-24] MEDS: PANTOprazole 40 MG TAB PO SCH (08:28)
[2020-02-24] MEDS: lisinopriL 20 MG TAB PO SCH (08:28)
[2020-02-24] MEDS: INSULIN ASPART 100 UNITS/ML 3 ML PEN SC SCH ×4 (08:32→22:02)
[2020-02-24] MEDS ORDERED: [UNRECOGNIZED DRUG - OTHER] PO SCH (09:00)
--- NOTE | 2020-02-24 11:38 | Surgery Progress Note ---
Date of Service February 24, 2020 Assessment & Plan (1) Abdominal pain: Subjectively unchanged White blood cell count has decreased some today Would continue for her analgesics and IV antibiotics. We will order stool softener. Admission and Anticipated Discharge Date Admission Date: February 23, 2020 Subjective Pain level is unchanged this morning No drainage from the incision Denies nausea and vomiting Tolerated diet Has not had bowel movement Physical Exam Gastrointestinal (Abdomen): Inspection/Auscultation: abdomen not distended Percussion/Palpation: + abdomen tender (Mild tenderness to the left to the right of the vertical midline incision scar but no drainage) and abdomen soft Results & Data ([facility]) Vital Signs (Past 12 Hours) Vital Signs Temp Pulse Resp BP Pulse Ox 02/24/20 08:05 36.5 C 72 16 115/73 97 Laboratory Results 02/24/20 02/24/20 02/23/20 Range/Units 08:09 05:51 20:39 WBC 12.30 H (4.8-10.8) K/uL RBC 4.30 (4.2-5.4) M/uL Hgb 10.6 L (12.0-16.0) g/dL Hct 34.8 L (37-47) % MCV 80.9 (80-100) fL MCH 24.7 L (25-34) pg MCHC 30.5 L (32-36) g/dL RDW Std Deviation 46.7 H (36.4-46.3) fL RDW Coeff of [place] 15.8 H (11.5-14.5) % Plt Count 740 H (130-400) K/uL MPV 8.5 (7.4-10.4) fL Immature Gran % (Auto) 0.4 % Neut % (Auto) 58.4 % Lymph % (Auto) 31.1 % [place] % (Auto) 8.0 % Eos % (Auto) 1.9 % Baso % (Auto) 0.2 % Neut # (Auto) 7.18 H (1.4-6.5) K/uL Lymph # (Auto) 3.82 H (1.2-3.4) K/uL [place] # (Auto) 0.99 H (0.11-0.59) K/uL Eos # (Auto) 0.23 (0-0.5) K/uL Baso # (Auto) 0.03 (0-0.2) K/uL Immature Gran # (Auto) 0.05 H (0.00-0.02) K/uL Sodium (136-145) mmol/L Potassium (3.5-5.1) mmol/L Chloride (98-107) mmol/L Carbon Dioxide (21-32) mmol/L Anion Gap (3-11) BUN (7-18) mg/dl Creatinine (0.6-1.2) mg/dl Est Cr Clr Drug Dosing ml/min Est GFR ( Amer) Est GFR (Non-Af Amer) BUN/Creatinine Ratio (10-20) Glucose (70-99) mg/dl POC Glucose 114 H 143 H (70-99) mg/dl Calcium (8.5-10.1) mg/dl Magnesium (1.8-2.4) mg/dl Total Bilirubin (0.2-1) mg/dl AST (15-37) U/L ALT (12-78) U/L Alkaline Phosphatase (45-117) U/L Total Protein (6.4-8.2) gm/dl Albumin (3.4-5.0) gm/dl Globulin (2.5-4.0) gm/dl Albumin/Globulin Ratio (0.9-2) Lipase (73-393) U/L Urine Color Urine Appearance (Clear) Urine pH (4.5-7.5) Ur Specific [place] (1.000-1.030) Urine Protein (Negative) Urine Glucose (UA) (Negative) Urine Ketones (Negative) Urine Blood (Negative) Urine Nitrite (Negative) Urine Bilirubin (Negative) Urine Urobilinogen (Negative) Ur Leukocyte Esterase (Negative) 02/23/20 02/23/20 02/23/20 Range/Units 17:25 15:07 13:30 WBC (4.8-10.8) K/uL RBC (4.2-5.4) M/uL Hgb (12.0-16.0) g/dL Hct (37-47) % MCV (80-100) fL MCH (25-34) pg MCHC (32-36) g/dL RDW Std Deviation (36.4-46.3) fL RDW Coeff of [place] (11.5-14.5) % Plt Count (130-400) K/uL MPV (7.4-10.4) fL Immature Gran % (Auto) % Neut % (Auto) % Lymph % (Auto) % [place] % (Auto) % Eos % (Auto) % Baso % (Auto) % Neut # (Auto) (1.4-6.5) K/uL Lymph # (Auto) (1.2-3.4) K/uL [place] # (Auto) (0.11-0.59) K/uL Eos # (Auto) (0-0.5) K/uL Baso # (Auto) (0-0.2) K/uL Immature Gran # (Auto) (0.00-0.02) K/uL Sodium (136-145) mmol/L Potassium (3.5-5.1) mmol/L Chloride (98-107) mmol/L Carbon Dioxide (21-32) mmol/L Anion Gap (3-11) BUN (7-18) mg/dl Creatinine (0.6-1.2) mg/dl Est Cr Clr Drug Dosing ml/min Est GFR ( Amer) Est GFR (Non-Af Amer) BUN/Creatinine Ratio (10-20) Glucose (70-99) mg/dl POC Glucose 129 H 88 (70-99) mg/dl Calcium (8.5-10.1) mg/dl Magnesium (1.8-2.4) mg/dl Total Bilirubin (0.2-1) mg/dl AST (15-37) U/L ALT (12-78) U/L Alkaline Phosphatase (45-117) U/L Total Protein (6.4-8.2) gm/dl Albumin (3.4-5.0) gm/dl Globulin (2.5-4.0) gm/dl Albumin/Globulin Ratio (0.9-2) Lipase (73-393) U/L Urine Color Yellow Urine Appearance Clear (Clear) Urine pH 6.5 (4.5-7.5) Ur Specific [place] 1.008 (1.000-1.030) Urine Protein Negative (Negative) Urine Glucose (UA) Negative (Negative) Urine Ketones Negative (Negative) Urine Blood Negative (Negative) Urine Nitrite Negative (Negative) Urine Bilirubin Negative (Negative) Urine Urobilinogen Negative (Negative) Ur Leukocyte Esterase Negative (Negative) 02/23/20 Range/Units 11:20 WBC (4.8-10.8) K/uL RBC (4.2-5.4) M/uL Hgb (12.0-16.0) g/dL Hct (37-47) % MCV (80-100) fL MCH (25-34) pg MCHC (32-36) g/dL RDW Std Deviation (36.4-46.3) fL RDW Coeff of [place] (11.5-14.5) % Plt Count (130-400) K/uL MPV (7.4-10.4) fL Immature Gran % (Auto) % Neut % (Auto) % Lymph % (Auto) % [place] % (Auto) % Eos % (Auto) % Baso % (Auto) % Neut # (Auto) (1.4-6.5) K/uL Lymph # (Auto) (1.2-3.4) K/uL [place] # (Auto) (0.11-0.59) K/uL Eos # (Auto) (0-0.5) K/uL Baso # (Auto) (0-0.2) K/uL Immature Gran # (Auto) (0.00-0.02) K/uL Sodium 136 (136-145) mmol/L Potassium 4.0 (3.5-5.1) mmol/L Chloride 101 (98-107) mmol/L Carbon Dioxide 30 (21-32) mmol/L Anion Gap 5.0 (3-11) BUN 19 H (7-18) mg/dl Creatinine 0.82 (0.6-1.2) mg/dl Est Cr Clr Drug Dosing 106.0 ml/min Est GFR ( Amer) 98.8 Est GFR (Non-Af Amer) 85.2 BUN/Creatinine Ratio 23.4 H (10-20) Glucose 98 (70-99) mg/dl POC Glucose (70-99) mg/dl Calcium 9.6 (8.5-10.1) mg/dl Magnesium 2.1 (1.8-2.4) mg/dl Total Bilirubin 0.3 (0.2-1) mg/dl AST 10 L (15-37) U/L ALT 16 (12-78) U/L Alkaline Phosphatase 115 (45-117) U/L Total Protein 7.9 (6.4-8.2) gm/dl Albumin 3.3 L (3.4-5.0) gm/dl Globulin 4.6 H (2.5-4.0) gm/dl Albumin/Globulin Ratio 0.7 L (0.9-2) Lipase 120 (73-393) U/L Urine Color Urine Appearance (Clear) Urine pH (4.5-7.5) Ur Specific [place] (1.000-1.030) Urine Protein (Negative) Urine Glucose (UA) (Negative) Urine Ketones (Negative) Urine Blood (Negative) Urine Nitrite (Negative) Urine Bilirubin (Negative) Urine Urobilinogen (Negative) Ur Leukocyte Esterase (Negative)
[2020-02-24] MEDS: DOCUSATE SODIUM 100 MG CAP PO SCH ×2 (11:56→20:06)
[2020-02-24] MEDS: HYDROCODONE/ACETAMOPHEN 5/325MG TAB PO PRN ×2 (11:56→15:44)
[2020-02-24] MEDS: diphenhydrAMINE Capsule 25 MG CAP PO SCH (20:06)
[2020-02-24] MEDS: ROSUVASTATIN CALCIUM 10 MG TAB PO SCH (20:07)
[2020-02-24] MEDS: ACETAMINOPHEN 500 MG TAB PO SCH (20:07)
[2020-02-24] MEDS: FLUTICASONE PROPIONATE NA SPR 16 GM BTL NAE SCH (20:07)
[2020-02-24] MEDS: ASPIRIN 81 MG ECTAB PO SCH (20:07)
[2020-02-25] MEDS: HYDROmorphone INJ 1 MG/ML SYRINGE IV PRN ×2 (01:51→20:19)
[2020-02-25 06:15] LABS: Basophils # (auto) 0.03 K/uL (0-0.2); Basophils % (auto) 0.3 %; Eosinophils # (auto) 0.35 K/uL (0-0.5); Eosinophils % (auto) 3.4 %; Hematocrit (blood only) 34.9 % (37-47); Hemoglobin 10.5 g/dL (12.0-16.0); Immature Granulocytes # (auto) 0.03 K/uL (0.00-0.02); Immature Granulocytes % (auto) 0.3 %; Lymphocytes # (auto) 4.81 K/uL (1.2-3.4); Lymphocytes % (auto) 47.3 %; Mean Corpuscular Hemoglobin 24.7 pg (25-34); Mean Corpuscular Hgb Conc 30.1 g/dL (32-36); Mean Corpuscular Volume 82.1 fL (80-100); Mean Platelet Volume 8.5 fL (7.4-10.4); Monocytes # (auto) 0.88 K/uL (0.11-0.59); Monocytes % (auto) 8.7 %; Neutrophils # (auto) 4.06 K/uL (1.4-6.5); Platelet Count 771 K/uL (130-400); RDW Coefficient of Variation 15.9 % (11.5-14.5); Red Blood Count 4.25 M/uL (4.2-5.4); White Blood Count 10.16 K/uL (4.8-10.8)
[2020-02-25] MEDS: ASCORBIC ACID 500 MG TAB PO SCH (09:11)
[2020-02-25] MEDS: PANTOprazole 40 MG TAB PO SCH (09:11)
[2020-02-25] MEDS: CLINDAMYCIN 600 MG in DEXTROSE 5% 50 ML IV SCH ×2 (09:11→15:26)
[2020-02-25] MEDS: DOCUSATE SODIUM 100 MG CAP PO SCH ×2 (09:11→20:18)
[2020-02-25] MEDS: hydroCHLOROthiazide 25 MG TAB PO SCH (09:12)
[2020-02-25] MEDS: SERTRALINE HCL 50 MG TABLET PO SCH (09:12)
[2020-02-25] MEDS: lisinopriL 20 MG TAB PO SCH (09:12)
[2020-02-25] MEDS: CHOLECALCIFEROL 1,000 UNITS 25 MCG TAB PO SCH (09:12)
[2020-02-25] MEDS: INSULIN ASPART 100 UNITS/ML 3 ML PEN SC SCH ×2 (09:16→13:09)
--- NOTE | 2020-02-25 09:38 | Surgery Progress Note ---
Date of Service February 25, 2020 Assessment & Plan (1) Abdominal pain: Subjectively unchanged White blood cell count has normalized today. Would continue for her analgesics and IV antibiotics. Bowels functioning. No new concerns. Admission and Anticipated Discharge Date Admission Date: February 23, 2020 Subjective Pain level is unchanged this morning - using the dilaudid mainly at night and a few times during day. Worse if she moves around but mild pain at rest. No drainage from the incision Denies nausea and vomiting Tolerated diet Had a bowel movement yesterday - on stool softeners. Review of Systems Review of Systems: All systems reviewed & are unremarkable except as noted in HPI & below Physical Exam Constitutional: WD/WN, vitals as above Respiratory: normal respiratory effort, lungs clear to auscultation Cardiovascular: RRR, no murmur, no edema Gastrointestinal (Abdomen): Inspection/Auscultation: normal bowel sounds Percussion/Palpation: + abdomen tender (upper abdomen) and abdomen soft; no guarding no drainage from incision, no erythema Neurologic: moves all extremities; no focal motor deficits Psychiatric: A+Ox3, euthymic affect Results & Data ([facility]) Vital Signs (Past 12 Hours) Vital Signs Temp Pulse Resp BP Pulse Ox 02/25/20 07:38 36.8 C 71 16 147/98 H 95 02/24/20 23:10 36.7 C 72 16 115/75 93 Laboratory Results Abnormal lab results 02/24/20 02/24/20 02/25/20 Range/Units 12:30 20:56 05:51 Hgb 10.5 L (12.0-16.0) g/dL Hct 34.9 L (37-47) % MCH 24.7 L (25-34) pg MCHC 30.1 L (32-36) g/dL RDW Std Deviation 48.0 H (36.4-46.3) fL RDW Coeff of [place] 15.9 H (11.5-14.5) % Plt Count 771 H (130-400) K/uL Lymph # (Auto) 4.81 H (1.2-3.4) K/uL [place] # (Auto) 0.88 H (0.11-0.59) K/uL Immature Gran # (Auto) 0.03 H (0.00-0.02) K/uL POC Glucose 144 H 145 H (70-99) mg/dl 02/25/20 Range/Units 08:18 Hgb (12.0-16.0) g/dL Hct (37-47) % MCH (25-34) pg MCHC (32-36) g/dL RDW Std Deviation (36.4-46.3) fL RDW Coeff of [place] (11.5-14.5) % Plt Count (130-400) K/uL Lymph # (Auto) (1.2-3.4) K/uL [place] # (Auto) (0.11-0.59) K/uL Immature Gran # (Auto) (0.00-0.02) K/uL POC Glucose 136 H (70-99) mg/dl
[2020-02-25] MEDS: HYDROCODONE/ACETAMOPHEN 5/325MG TAB PO PRN ×2 (10:58→18:04)
[2020-02-25] MEDS: metFORMIN HCL 500 MG TAB PO SCH (17:12)
[2020-02-25] MEDS: ASPIRIN 81 MG ECTAB PO SCH (20:17)
[2020-02-25] MEDS: ACETAMINOPHEN 500 MG TAB PO SCH (20:18)
[2020-02-25] MEDS: ROSUVASTATIN CALCIUM 10 MG TAB PO SCH (20:18)
[2020-02-25] MEDS: diphenhydrAMINE Capsule 25 MG CAP PO SCH (20:19)
[2020-02-25] MEDS: FLUTICASONE PROPIONATE NA SPR 16 GM BTL NAE SCH (20:19)
[2020-02-26] MEDS: CLINDAMYCIN 600 MG in DEXTROSE 5% 50 ML IV SCH ×2 (00:10→09:14)
[2020-02-26] MEDS: HYDROmorphone INJ 1 MG/ML SYRINGE IV PRN (00:47)
--- NOTE | 2020-02-26 09:10 | Surgery Progress Note ---
Date of Service February 26, 2020 Assessment & Plan (1) Postoperative seroma: discussed with radiology Wednesday...essentially seroma is too thin to drain. pt feeling better. wbc normal. afebrile. ok for d/c. f/u in 1 week. continue antibiotics. Admission and Anticipated Discharge Date Admission Date: February 23, 2020 Subjective pt seen. feeling significantly better this AM. was up walking/washing up and did not experience the pain. no fevers. no new comlaints. Physical Exam Physical Exam: alert. nad. abd: soft. wound looks good. no leakage. no warmth or erythema. mild tenderness. Results & Data ([facility]) Vital Signs (Past 12 Hours) Vital Signs Temp Pulse Resp BP Pulse Ox 02/26/20 07:33 36.7 C 67 16 117/83 95 02/25/20 22:50 36.6 C 73 16 106/70 95 PG Care Time/CCT Total # of Minutes Spent Total Time Spent with Patient: Total time spent is greater than 50% in coordination of care (as documented) at patient's floor/unit and/or counseling patient: Coding Level of Care Code None Diagnoses Postoperative seroma
[2020-02-26] MEDS: lisinopriL 20 MG TAB PO SCH (09:14)
[2020-02-26] MEDS: DOCUSATE SODIUM 100 MG CAP PO SCH (09:14)
[2020-02-26] MEDS: hydroCHLOROthiazide 25 MG TAB PO SCH (09:15)
[2020-02-26] MEDS: PANTOprazole 40 MG TAB PO SCH (09:15)
[2020-02-26] MEDS: SERTRALINE HCL 50 MG TABLET PO SCH (09:15)
[2020-02-26] MEDS: ASCORBIC ACID 500 MG TAB PO SCH (09:15)
[2020-02-26] MEDS: CHOLECALCIFEROL 1,000 UNITS 25 MCG TAB PO SCH (09:15)
[2020-02-26] MEDS: metFORMIN HCL 500 MG TAB PO SCH (09:16)
--- NOTE | 2020-02-29 11:37 | Discharge Summary ---
Date of Service February 29, 2020 Admission HPI Per Admitting Provider 49 y/o female 3 mos s/p multiple incisional hernia repair treated by wound clinic for seroma. Wound vac was discontinued last week, she had has increasing abdominal pain since then. Not able to manage at home, was seen in clinic today and referred to ED for CT and labs. Principal Diagnosis Postoperative seroma Discharge Exam Constitutional WD/WN, vitals as above Gastrointestinal (Abdomen) Inspection/Auscultation: + abdominal surgical scar Percussion/Palpation: abdomen soft; abdomen nontender Discharge Data Allergies Allergy/AdvReac Type Severity Reaction Status Date / Time pineapple Allergy Severe throat Verified 02/23/20 11:15 closes up Penicillins Allergy Mild HIVES A Verified 02/23/20 11:15 BABY mold Allergy Unknown TESTED Verified 02/23/20 11:15 ALLERGY TO MOLDS-SINUS ISSUES morphine Allergy Rash Verified 02/23/20 17:40 tramadol Allergy slurred Verified 02/23/20 11:15 speech, nauseous, dizzy Sulfa (Sulfonamide AdvReac Mild NAUSEA Verified 02/23/20 11:15 Antibiotics) Ordered Studies 02/23/20 11:08 CT abd pelvis IV con only Stat Hospital Course (1) Postoperative seroma: 49 y/o female was referred to the ER from surgical clinic for post operative abdominal pain after wound vac was recently discontinued. White count was 13,[address] showed a thin seroma 16 x 1.4 cm. She was admitted to the surgical floor for IV antibiotics and analgesics. Her white count normalized over the next two days. By he third day her pain had resolved, and she was stable for discharge home on oral clindamycin. Total Time Total Time Spent Total Time Spent (In Minutes): 15 Discharge Plan Discharge Items Patient Disposition: Home - Self-Care Reason For Visit: CELLULITIS Discharge Diagnosis: abdominal pain Condition on Discharge: Good Activity: As commented below Activity Comment: ok to move freely but avoid any irritating activities. Non-emergency contact: Surgeon Call non-emergency contact if: you have any medication questions, your symptoms worsen, your pain is not controlled and your rectal temperature is above 100.4 Follow-up/Referrals: Sarbjit Andrade DO [Surgeon] - 03/04/20 2:15 pm David Everett MD [Primary Care Provider] - Diet: Regular Addtl Attending Provider Instructions: f/u in 1 week. Pending Studies at Discharge: No Stand-Alone Forms: My [facility], Opioid Pain Management, Smoking Cessation Medications and DC Order Prescriptions: New hydrocodone-acetaminophen [Readlyn] 5-325 mg tablet 1 - 2 tab PO Q4H PRN (Reason: pain, initial therapy, max 8 daily) Qty: 10 RF: 0 Continued metformin 500 mg Tablet 500 mg PO TID RF: 0 lisinopril 20 mg Tablet 20 mg PO QAM RF: 0 sertraline 25 mg Tablet 25 mg PO QAM RF: 0 naproxen [Naprosyn] 500 mg Tablet 500 mg PO BID RF: 0 rosuvastatin 10 mg Tablet 10 mg PO QPM RF: 0 ascorbic acid (vitamin C) [Vitamin C] 1,000 mg Tablet 1 g PO QAM RF: 0 omeprazole 40 mg Capsule,Delayed Release(Dr/Ec) 40 mg PO QAM RF: 0 aspirin 81 mg Tablet,Delayed Release (Dr/Ec) 81 mg PO HS RF: 0 hydrochlorothiazide 25 mg Tablet 25 mg PO QAM RF: 0 diphenhydramine-acetaminophen [Tylenol PM Extra Strength] 25-500 mg Tablet 2 tab PO HS RF: 0 fluticasone propionate [Flonase Allergy Relief] 50 mcg/actuation [place],Suspension 1 spray INTRANASAL HS RF: 0 Kia-D 24 Hour 180-240 mg Tablet Extended Release 24 Hr 1 tab PO QAM RF: 0 cholecalciferol (vitamin D3) [Vitamin D3] 125 mcg (5,000 unit) Tablet 125 mcg PO QAM RF: 0 Airborne (ascorbate sodium) 333-1.7 mg Tablet,Chewable 1.7 mg PO QAM RF: 0 Ozempic 0.25 mg or 0.5 mg(2 mg/1.5 mL) Pen Injector 0.5 mg SUBCUT WK RF: 0 Mirena 20 mcg/24 hours (5 yrs) 52 mg Intrauterine Device 20 mcg INTRAUTERINE UD RF: 0 No Action clindamycin HCl [Cleocin HCl] 300 mg capsule 300 mg PO TID 7 Days Qty: 21 RF: 0 Discharge Orders: Discharge Order (Routine); Ordered 02/26/20 Ordered By: Sarbjit Freitas/Other Patient Handouts: Clindamycin capsules Admission Data Admit Date/Time: 10/09/20 13:19 Attending Provider: Sarbjit Andrade Admit Provider: Sarbjit Andrade Primary Care Provider: David Everett Other Interventions: Discharge Summary Assessment (RN) Last Done: 02/26/20 09:28 Coding Level of Care Code D/C Day Management <30 mins Diagnoses Postoperative seroma
== END 2020-02-26 10:10 | disposition home or self-care (01) ==
LOC: ED 10:30 → 3E 10:30

== ENCOUNTER 2024-09-02 17:27 | Inpatient (IN) ==
--- NOTE | 2024-09-02 17:52 | Emergency Department Note ---
Impression & Plan Chest pain, Anemia, Abdominal pain ED Provider Note NAME: JOSELUIS WRIGHT AGE: 54 SEX: F : 1970 ARRIVES VIA: Walk-In INFORMANT: Patient ED PROVIDER(S): Julius Mcdaniel DO CHIEF COMPLAINT: Chest pain and abdominal pain HPI: Patient is a 54-year-old female with a past medical history of diabetes and hyperlipidemia who presents to the ER for midsternal chest pain which occurred last night. This started around 10:00 and lasted for 1 hour. She had some shortness of breath and jaw pain. She notes it felt like her chest was " mad." When she woke up this morning she started having belly pain in the periumbilical region around 1-2 o'clock. She notes it started after eating. She took some nausea medication. No vomiting. Denies any dysuria, urgency, or frequency. Previous abdominal surgeries include a Whipple splenectomy, cholecystectomy, and close to 5 hernia surgeries. Symptoms are nonexertional. She did have some shortness of breath last night. ADDITIONAL HISTORY OBTAINED: Per HPI Chronic Medical/Social Conditions Affecting Care: Per HPI PAST MEDICAL HISTORY:See Below PAST SURGICAL HISTORY:See Below FAMILY HISTORY:See Below SOCIAL HISTORY:See Below HOME MEDICATIONS:See Below ALLERGIES:See Below VITALS:See Below PHYSICAL EXAMINATION: GENERAL: Sitting up in bed, alert, well appearing, well nourished, no distress, non-toxic EYE EXAM: normal conjunctiva. PERRL and EOM's grossly intact. OROPHARYNX: no exudate, no erythema, lips, buccal mucosa, and tongue normal and mucous membranes are moist NECK: supple, no nuchal rigidity, no adenopathy, non-tender LUNGS: Clear to auscultation. Normal chest wall mechanics HEART: no murmurs, S1 normal and S2 normal ABDOMEN: abdomen soft, tenderness tenderness to palpation just above the umbilicus which is firm and hard over the old midline incision, normo-active bowel sounds, no masses, no rebound or guarding. BACK: Back is symmetrical on inspection and there is no deformity, no midline tenderness, no CVA tenderness. SKIN: no rashes and no bruising UPPER EXTREMITIES: upper extremities are grossly normal. LOWER EXTREMITIES: No pitting edema. NEURO EXAM: Normal sensorium, cranial nerves II-XII grossly intact, normal speech, no gross weakness of arms, no gross weakness of legs. MEDICAL DECISION MAKING: Patient is a 54-year-old female who presents ER for supraumbilical abdominal pain. IV was established and blood work was obtained. Labs showed no significant leukocytosis. Mild anemia 10.9. BMP with LFTs bilirubin was unremarkable. Troponin was negative. Lipase was normal. CTA of the chest and abdomen pelvis showed a questionable subcutaneous abdominal abscess. Discussed the case with general surgery who recommended admission for IV antibiotics. chest x-ray was clean. Discussed the case with [facility] for further evaluation management treatment. Consults/Care Managements Discussions: Per [facility] Triage Nursing notes reviewed. Limited review of prior medical records performed Vital Signs: reviewed and remarkable for HTN Differential diagnosis: Differential diagnoses includes but is not limited to gastritis, peptic ulcer disease, GERD, gallbladder disease, pancreatitis, small bowel obstruction, appendicitis, diverticulitis, hernia, urinary tract infection, torsion, perforation, trauma, infectious. ER treatment provided: See below Diagnostics interpreted by me include EKG and cardiac monitoring as listed below: -Cardiac Monitoring: An order was placed for continuous cardiac monitoring. The monitor shows a rate of 70 with sinus rhythm. -ECG: Sinus rhythm rate of 66 Normal axis No PVCs QTc 425 -Laboratory studies:Interpreted by me as stated above in MDM and shown below. Imaging studies: Xrays: As interpreted by me: Portable AP upright 1 view of the chest shows no focal Lutrate CTs show: CTA of the chest was unremarkable CT abdomen pelvis showed a questionable abscess Procedures:none Critical Care: None Past Med/Surg History Problem List (Updated 09/02/24 @ 23:28 by Julius Mcdaniel DO) Abdominal pain (Acute) Anemia (Acute) Chest pain (Acute) Chest pain Diabetes mellitus type 2, controlled, with complications peripheral neuropathy feet Hx of asplenia Intractable cyclical vomiting with nausea Diabetes Allergies IUD (intrauterine device) in place Mirena 04/2021 Dry tooth socket Exposed mandibular bone Hypertension Hypercholesterolemia Menorrhagia with irregular cycle Ankylosing spondylitis (2017) Medical History Diabetic peripheral 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 Painful scar Contact dermatitis Surgical wound, non healing Postoperative seroma Ventral hernia Incisional hernia Vomiting and diarrhea History of COVID-02 NOVEMBER 2021>RESOLVED Morbid obesity Stress incontinence GERD (gastroesophageal reflux disease) IBS (irritable bowel syndrome) Diabetes mellitus, type 2 Pancreatic tumor Benign>HX Anxiety History of migraine headaches IUD (intrauterine device) in place Mirena inserted in OR 04/2021 Surgical History Status post hernia repair H/O abdominal surgery (10/01/22) Wound Exploration with Excision of Suture Granuloma with Placement of Antibiotic Beads(Not Applicable) - Sarbjit Andrade, History of tooth extraction History of gynecologic surgery MIRENA REMOVAL AND INSERTION UNDER ANESTHESIA H/O ventral hernia repair Open Ventral Hernia Repair with Mesh (11/23/19): Grade 3 view, MAC#3, ETT 7.5 at [facility] (weight at time 109kg) H/O breast biopsy RT > benign History of esophagogastroduodenoscopy (EGD) History of lung surgery Left VATS r/t "fluid build up" (2008) 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 History of wisdom tooth extraction History of dilatation and curettage History of cholecystectomy Family History Grandmother Hypertension Grandfather Hypertension Father Hypertension Grandmother (Maternal) Diabetes Bipolar disorder Hypothyroidism Grandfather (Maternal) Heart disease Grandfather (Paternal) Diabetes Heart disease Other No family history of adverse response to anesthesia Denies family history of Ovarian cancer Breast cancer Colorectal cancer Social History Smoking Status: Never smoker Second Hand Exposure: Yes ( A CHILD); Do You Dip or Chew Tobacco: No; Hx Alcohol Use: No Preferred Language: Greenlandic Communication Ability: Effective Visual Impairment: No Limitations Hearing Ability: Normal Woods Warden Required: No Beliefs That Will Affect Care: None marital status: Single Current Living Situation: Family Current Living Situation Comment: WITH PARENTS current occupational status: employed 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 Feels Safe at Home: Yes Assistive Devices: Glasses Allergies Allergies Allergy/AdvReac Type Severity Reaction Status Date / Time pineapple Allergy Severe Anaphylaxis Verified 09/02/24 19:25 Penicillins Allergy Intermediate Hives (as Verified 09/02/24 19:25 baby) eugenol Allergy Mild Rash Verified 09/02/24 19:25 mold Allergy Mild Allergy Verified 09/02/24 19:25 tested > sinus issues tramadol AdvReac Intermediate Slurred Verified 09/02/24 19:25 speech, nauseous, dizziness morphine AdvReac Mild Itching Verified 09/02/24 19:25 Sulfa (Sulfonamide AdvReac Mild Nausea Verified 09/02/24 19:25 Antibiotics) Home Meds Home Medications Medication Instructions Recorded Confirmed ascorbic acid (vitamin C) 1,000 mg 2 g PO QAM 11/06/19 09/02/24 tablet (Vitamin C) aspirin 81 mg tablet,delayed 81 mg PO PM 11/06/19 09/02/24 release cholecalciferol (vitamin D3) 125 250 mcg PO QAM 11/06/19 09/02/24 mcg (5,000 unit) tablet (Vitamin D3) fluticasone propionate 50 2 spray intranasal HS 11/06/19 09/02/24 mcg/actuation nasal spray,suspension (Flonase Allergy Relief) levonorgestrel 21 mcg/24 hr (up to 20 mcg intrauterine CONTINOUS 11/06/19 09/02/24 8 years) 52 mg intrauterine device (Mirena) lisinopril 20 mg tablet 20 mg PO QAM 11/06/19 09/02/24 metformin 500 mg tablet 500 mg PO BID 11/06/19 09/02/24 mv-min-vit C-ascorb 1.7 mg PO QAM 11/06/19 09/02/24 Wz-Bcd-Web-herb #124 333 mg-1.7 mg chewable tablet (Airborne (ascorbate sodium)) omeprazole 40 mg capsule,delayed 40 mg PO QAM 11/06/19 09/02/24 release rosuvastatin 10 mg tablet 10 mg PO QPM 11/06/19 09/02/24 buspirone 5 mg tablet 5 mg PO BID 09/02/20 09/02/24 zolpidem 10 mg tablet (Ambien) 10 mg PO HS PRN Sleep 09/02/20 09/02/24 multivitamin (Multiple Vitamins 1 tab PO QAM 07/25/21 09/02/24 tablet) biotin 10,000 mcg chewable tablet 10,000 mcg PO QAM 09/22/22 09/02/24 coQ10 (ubiquinol) 100 mg capsule 100 mg PO QAM 09/22/22 09/02/24 cyanocobalamin (vitamin B-12) 1,000 mcg PO QAM 09/22/22 09/02/24 1,000 mcg capsule diclofenac potassium 50 mg tablet 50 mg PO BID 09/22/22 09/02/24 glucosamin 375 mg-chond 300 1 cap PO BID 09/22/22 09/02/24 mg-collagen 50 mg-hyaluronic acid 2 mg cap pyridoxine (vitamin B6) 50 mg 100 mg PO QAM 09/22/22 09/02/24 capsule (Vitamin B-6) secukinumab 150 mg/mL subcutaneous 150 mg subcut MONTHLY 09/22/22 09/02/24 syringe (Cosentyx) Acv Gummies 1 tab PO DAILY 09/02/24 09/02/24 [place] 1,000 mg PO BID 09/02/24 09/02/24 Turmeric/Curcumin 1 tab PO TID 09/02/24 09/02/24 calcium carbonate (Calcium 600) 600 mg PO DAILY 09/02/24 09/02/24 docusate sodium 100 mg capsule 100 mg PO DAILY 09/02/24 09/02/24 dulaglutide 0.75 mg/0.5 mL 0.75 mg subcut WK 09/02/24 09/02/24 subcutaneous pen injector (Trulicity) elderberry fruit 350 mg capsule 1,050 mg PO HS 09/02/24 09/02/24 fexofenadine 180 mg tablet 180 mg PO DAILY 09/02/24 09/02/24 milk thistle 500 mg capsule 1,000 mg PO HS 09/02/24 09/02/24 omega-3 fatty acids 1,000 mg 3,000 mg PO DAILY 09/02/24 09/02/24 capsule polyethylene glycol 3350 17 17 g PO BID 09/02/24 09/02/24 gram/dose oral powder (Miralax) sertraline 50 mg tablet 50 mg PO QAM 09/02/24 09/02/24 zinc gluconate 50 mg tablet 50 mg PO DAILY 09/02/24 09/02/24 Results & Data (ED) Vital Signs Vital Signs - 24 hr 09/02/24 17:29 09/02/24 17:52 09/02/24 18:00 Temperature 36.9 C Temperature Source Temporal Artery Scan Pulse Rate 80 67 67 Pulse Rate from SpO2 Sensor Pulse Rhythm Regular Respiratory Rate 16 18 Respiratory Effort / Characteristics Non-Labored Spontaneous Respiratory Depth Normal Blood Pressure 185/92 H Blood Pressure Mean 123 Blood Pressure Position Sitting Pulse Oximetry 99 97 Oxygen Delivery Method Room Air Room Air Sepsis Recent Fever Within 48 Hours No Sepsis New/Unexplained Change in Mental Status N/A Sepsis Action Taken by Nursing No Action Required 09/02/24 18:18 09/02/24 18:21 09/02/24 18:54 Temperature Temperature Source Pulse Rate 70 63 Pulse Rate from SpO2 Sensor 70 64 Pulse Rhythm Respiratory Rate 11 L 9 L Respiratory Effort / Characteristics Respiratory Depth Blood Pressure 166/83 H 137/78 Blood Pressure Mean 110 97 Blood Pressure Position Pulse Oximetry 96 94 97 Oxygen Delivery Method Room Air Room Air Sepsis Recent Fever Within 48 Hours Sepsis New/Unexplained Change in Mental Status Sepsis Action Taken by Nursing 09/02/24 19:15 09/02/24 20:18 09/02/24 21:56 Temperature Temperature Source Pulse Rate 64 76 68 Pulse Rate from SpO2 Sensor 64 72 Pulse Rhythm Respiratory Rate 12 23 Respiratory Effort / Characteristics Respiratory Depth Blood Pressure 140/79 125/73 Blood Pressure Mean 99 90 Blood Pressure Position Pulse Oximetry 93 93 Oxygen Delivery Method Sepsis Recent Fever Within 48 Hours Sepsis New/Unexplained Change in Mental Status Sepsis Action Taken by Nursing Laboratory Data 09/02/24 17:45 09/02/24 17:45 Lab Results 09/02/24 09/02/24 Range/Units 17:45 17:49 WBC 8.96 (4.8-10.8) K/ul RBC 4.08 L (4.20-5.40) M/uL Hgb 10.9 L (12.0-16.0) g/dl POC Hgb 11.9 L (12.0-16.0) g/dl Hct 34.1 L (37.0-47.0) % POC Hct 35 L (37-47) % MCV 83.6 (80.0-100.0) fL MCH 26.7 (25.0-34.0) pg MCHC 32.0 (32.0-36.0) g/dL RDW Std Deviation 47.2 H (36.4-46.3) fL RDW Coeff of Leland 15.6 H (11.5-14.5) % Plt Count 508 H (130-400) K/uL MPV 9.1 L (9.4-12.4) fL Immature Gran % (Auto) 0.3 % Neut % (Auto) 50.5 % Lymph % (Auto) 35.2 % [place] % (Auto) 10.8 % Eos % (Auto) 2.6 % Baso % (Auto) 0.6 % Neut # (Auto) 4.53 (1.40-6.50) K/uL Lymph # (Auto) 3.15 (1.20-3.40) K/uL [place] # (Auto) 0.97 H (0.11-0.59) K/uL Eos # (Auto) 0.23 (0.00-0.50) K/uL Baso # (Auto) 0.05 (0.00-0.20) K/uL Immature Gran # (Auto) 0.03 (0.01-0.20) K/uL POC Sodium 140 (135-144) mmol/L Sodium 137 (136-145) mmol/L POC Potassium 4.4 (3.3-5.0) mmol/L Potassium 4.1 (3.5-5.1) mmol/L POC Chloride 99 L (101-112) mmol/L Chloride 101 (98-107) mmol/L Carbon Dioxide 31 (21-32) mmol/L POC Total CO2 27 (24-31) mmol/L Anion Gap 5 (3-11) POC Anion Gap 19.0 (16-25) mmol/L POC BUN 22 H (7-18) mg/dl BUN 21 (6-23) mg/dl Creatinine 0.98 (0.6-1.2) mg/dl POC Creatinine 1.1 (0.6-1.3) mg/dl Est Cr Clr Drug Dosing 77.7 ml/min eGFR 69.45 BUN/Creatinine Ratio 21.4 H (10-20) Glucose 100 H (70-99(Fasting)) mg/dl POC Glucose (other) 100 H (70-99) mg/dl Calcium 9.4 (8.6-10.3) mg/dl POC Ioniz Calcium Tyson 1.22 (1.12-1.32) mmol/l Total Bilirubin 0.4 (0.2-1.0) mg/dl AST 15 (13-39) U/L ALT 10 (7-52) U/L Alkaline Phosphatase 57 (34-104) U/L Troponin I High Sens < 2.3 (0-14) pg/ml Total Protein 7.1 (6.0-8.3) gm/dl Albumin 4.2 (3.4-5.0) gm/dl Globulin 2.9 (2.5-4.0) gm/dl Albumin/Globulin Ratio 1.4 (0.9-2) Lipase 32 (11-82) U/L Administered Medications Hydromorphone HCl (Hydromorphone Inj 0.5 Mg/0.5 Ml Syr) 0.25 mg IV Q3H PRN PRN Reason: Pain (1,2,3,4,5) & Pre PT Stop: 09/16/24 22:04 Last Admin: 09/02/24 22:10 Dose: 0.25 mg Documented By: ANAIS Discontinued Medications Hydromorphone HCl (Hydromorphone Inj 0.5 Mg/0.5 Ml Syr) 0.25 mg IV NOW STA Stop: 09/02/24 17:48 Last Admin: 09/02/24 17:55 Dose: 0.25 mg Documented By: ROBERTA Sodium Chloride (Nss) 500 mls @ 999 mls/hr IV .Q31M ONE Stop: 09/02/24 18:17 Last Infusion: 09/02/24 18:50 Dose: Infused Documented By: Admin: 09/02/24 17:57 Dose: 999 mls/hr Documented By: ROBERTA Ceftriaxone Sodium (Rocephin) 2,000 mg in 50 mls @ 100 mls/hr IV NOW STA Stop: 09/02/24 21:43 Last Infusion: 09/02/24 22:34 Dose: Infused Documented By: Admin: 09/02/24 21:29 Dose: 100 mls/hr Documented By: ANAIS Ioversol (Optiray 320 125ml) 117 ml IV ONCE ONE Stop: 09/02/24 18:08 Last Admin: 09/02/24 18:07 Dose: 117 ml Documented By: VIRGIL Morphine Sulfate (Morphine Sulfate 4 Mg/Ml 1 Ml Carp\\Vial) 4 mg IV NOW STA Stop: 09/02/24 21:47 Last Admin: 09/02/24 21:57 Dose: Not Given Documented By: ANAIS Ondansetron HCl (Ondansetron Inj 2 Mg/Ml 2 Ml Vial) 4 mg IV NOW STA Stop: 09/02/24 17:48 Last Admin: 09/02/24 17:57 Dose: 4 mg Documented By: ROBERTA Imaging Data Radiologist's Impression: Abdomen/Pelvis CT 09/02/24 17:47 EXAM: CT abd pelvis IV con only CLINICAL HISTORY: mid epigastric abd pain TECHNIQUE: CT of the abdomen and pelvis was performed with contrast, with the following protocol: axial images with, and reconstructed coronal and sagittal images. One of the following dose reduction techniques was utilized for this exam: Automated exposure control, adjustment of the mA and/or kV according to patient size, and use of iterative reconstruction. COMPARISON: Comparison is made with previous imaging studies dated 07/03/2019. FINDINGS: Abdomen: Anterior abdominal wall subcutaneous complicated cystic lesion with thick smooth enhancing wall measuring 43x36 mm with mild regional stranding of fat planes Liver: Normal in size, shape, and density. Hypodense focal lesion seen at segment III (left hepatic lobe), measuring 14x12 mm with no contrast enhancement Hepatic vasculature and biliary ducts are unremarkable. Gallbladder and Biliary System: Not visualized The common bile duct is normal in caliber without dilation. Pancreas: Pancreatic head are visualized and appear normal in size and density. body, and tail not proper visualized. No pancreatic masses or calcifications were noted. The pancreatic duct is not dilated. Spleen: Not visualized Appendix: not proper visualized Kidneys and Adrenal Glands: Both kidneys are normal in size, shape, and position. Cortical thickness is within normal limits. No renal calculi or hydronephrosis. Adrenal glands are unremarkable with no evidence of masses or hyperplasia. small right supra renal nodule measuring 4 mm Pelvis: Urinary Bladder: Normal in contour and wall thickness. No intraluminal lesions identified. Uterus: Normal in size and contour. IUD in place No masses or abnormal thickening. Ovaries: Not well visualized, but no gross abnormalities noted. Vagina: Normal in contour and wall thickness. Cervix: No evidence of mass or abnormal thickening. Peritoneal and Retroperitoneal Structures: No free fluid or abnormal fluid collections were identified within the abdomen or pelvis. No lymphadenopathy was noted. Bowel: The visualized bowel loops are normal in caliber and appearance. No evidence of bowel obstruction or wall thickening. Regressive course of the previously seen anterior abdominal wall hernia Bones and Soft Tissues: Pelvic bones and soft tissues are unremarkable. No fractures or abnormal masses were identified. IMPRESSION: 1. Anterior abdominal wall subcutaneous complicated cystic lesion, as described, likely a 4x3.5 cm abscess, new. 2. Small left hepatic lobe focal lesion, likely cyst, stable. 3. Small right suprarenal nodule likely adenoma, new. 4. Anterior abdominal wall hernia, not appear in the current study. Electronically signed by Cesar Abernathy 09-02-2024 8:08 PM Chest CTA 09/02/24 17:47 EXAM: CT angio chest PE protocol CLINICAL HISTORY: PE cp and sob TECHNIQUE: CT angiography of the chest was performed with and without intravenous contrast with the following protocol: axial images with, reconstructed coronal and sagittal images. Non-contrast images were initially acquired, followed by contrast-enhanced images in arterial and venous phases. Intravenous contrast was administered using automated injection techniques. Bolus tracking was employed to optimize arterial phase imaging. One of these 3D techniques was utilized: Maximum Intensity Pixel (MIP), 3D Reconstructed Images, Volume Rendered Images, Surface Shaded Rendering. One of the following dose reduction techniques was utilized for this exam: Automated exposure control, adjustment of the mA and/or kV according to patient size, and use of iterative reconstruction. COMPARISON: x-ray dated 07/17/2024 was reviwed. FINDINGS: Aorta and Great Vessels: Ascending Aorta: Normal in caliber, no aneurysm, dissection, or significant atherosclerosis. Aortic Arch: Normal in caliber, no aneurysm, dissection, or significant atherosclerosis. Descending Aorta: Normal in caliber, no aneurysm, dissection, or significant atherosclerosis. Pulmonary Arteries: The main pulmonary artery and its branches are patent. No evidence of pulmonary embolism or significant stenosis. Heart: Mild cardiomegaly Minimal pericardial effusion Lungs and Pleura: Irregular nodular pleural thickening noted at the left upper lung lobe with a mildly enhancing pleural-based lesion noted at the apical segment of the left lower lung lobe measuring 17x 36 mm with foci of calcifications inside with no associated ribs destructions or erosions. Another similar 1 seen at the apical posterior segment of the left upper lung lobe measuring 15x 20 mm Middle lobe pneumatocele measuring 13 mm Lungs are clear without evidence of consolidation, collapse, or focal lesions. No pleural effusion . Mediastinum: No mediastinal mass or abnormal lymphadenopathy. Normal appearance of the trachea and central bronchi. Hilar Structures: Hilar structures are normal without enlargement. Chest Wall: Two circumscribed right lower inner quadrant breast nodules the largest measures 8x 7 mm, further sonography is advised Vascular Structures: Superior Vena Cava: Patent without evidence of stenosis or thrombus. Inferior Vena Cava: Patent without evidence of stenosis or thrombus. Bones and Soft Tissues: No fractures, lytic, or blastic lesions of the visualized bony structures. Soft tissues are unremarkable. Spine degenerative changes with osteophytes. IMPRESSION: 1. The study is negative for pulmonary embolism. 2. Irregular nodular pleural thickening noted at the left upper lung lobe with two pleural based masses as described above with the largest of them seen at the apical segment of the left lower lung lobe measuring 17x 36 mm. Differential diagnosis includes sequelae of prior granulomatous infection and mesothelioma. Clinical correlation and with CT are advised. Findings are not well-appreciated in prior x-ray. 3. Two circumscribed right lower inner quadrant breast nodules , further sonography is advised 4. Mild cardiomegaly with minimal pericardial effusion. New Electronically signed by Cesar Abernathy 09-02-2024 8:08 PM Chest X-Ray 09/02/24 17:47 EXAM: XR chest 1V portable CLINICAL HISTORY: Chest pain, nonspecific. TECHNIQUE: An X-ray image of the chest is obtained in AP projection. COMPARISON: 09.02.2024 study was reviewed and in comparison to 10.18.2019 study. FINDINGS: Pulmonary Parenchyma: Relatively elevated hemidiaphragmatic copula. Left pleural thickening with blunted costophrenic angle. Lungs are clear bilaterally. No evidence of consolidation, collapse, or focal opacities. No pulmonary nodules are identified. No evidence of pleural effusion. Heart and Mediastinum: Heart size and shape are normal. No mediastinal widening or masses. No hilar or mediastinal lymphadenopathy. Bony Thorax: Bony thorax appears intact without fractures or deformities. Soft Tissues: Soft tissues overlying the chest wall are unremarkable. IMPRESSION: Progression of the pleural thickening in comparison to 2019 study. Electronically signed by Cesar Abernathy 09-02-2024 8:51 PM Discharge Plan Visit Data Chief Complaint: Cardiac Assessment Stated Complaint: CHEST/BACK/HEAD/JAW PAIN, SOB, NAUSEA ED Provider: Julius Mcdaniel Discharge Problem: Chest pain, Anemia, Abdominal pain Patient Disposition: Admitted As Inpatient Discharge Instructions Interventions: ED Discharge Assessment Last Done: 09/02/24 23:10 Forms Stand Alone Forms: [employer] Prescriptions Prescriptions: No Action multivitamin [Multiple Vitamins] Tablet 1 tab PO QAM metformin 500 mg Tablet 500 mg PO BID lisinopril 20 mg Tablet 20 mg PO QAM rosuvastatin 10 mg Tablet 10 mg PO QPM ascorbic acid (vitamin C) [Vitamin C] 1,000 mg Tablet 2 g PO QAM omeprazole 40 mg Capsule,Delayed Release(Dr/Ec) 40 mg PO QAM aspirin 81 mg Tablet,Delayed Release (Dr/Ec) 81 mg PO PM fluticasone propionate [Flonase Allergy Relief] 50 mcg/actuation [place],Suspension 2 spray INTRANASAL HS cholecalciferol (vitamin D3) [Vitamin D3] 125 mcg (5,000 unit) Tablet 250 mcg PO QAM Airborne (ascorbate sodium) 333-1.7 mg Tablet,Chewable 1.7 mg PO QAM Mirena 20 mcg/24 hours (5 yrs) 52 mg Intrauterine Device 20 mcg INTRAUTERINE CONTINOUS buspirone 5 mg tablet 5 mg PO BID zolpidem [Ambien] 10 mg Tablet 10 mg PO HS PRN (Reason: Sleep) diclofenac potassium 50 mg Tablet 50 mg PO BID [id number]-soca-xzvolt-hyalur ac [id number] mg Capsule 1 cap PO BID coQ10 (ubiquinol) 100 mg Capsule 100 mg PO QAM Vitamin B-6 50 mg Capsule 100 mg PO QAM Cosentyx 150 mg/mL Syringe 150 mg SUBCUT MONTHLY cyanocobalamin (vitamin B-12) 1,000 mcg Capsule 1,000 mcg PO QAM biotin 10,000 mcg Tablet,Chewable 10,000 mcg PO QAM Acv Gummies 1 tab PO DAILY omega-3 fatty acids 1,000 mg Capsule 3,000 mg PO DAILY milk thistle 500 mg Capsule 1,000 mg PO HS Rx Instructions: give with meal/snack fexofenadine [Kia] 180 mg Tablet 180 mg PO DAILY calcium carbonate [Calcium 600] 600 mg calcium (1,500 mg) Tablet 600 mg PO DAILY docusate sodium 100 mg Capsule 100 mg PO DAILY zinc gluconate 50 mg Tablet 50 mg PO DAILY polyethylene glycol 3350 [Miralax] 17 gram/dose Powder 17 g PO BID sertraline 50 mg tablet 50 mg PO QAM elderberry fruit 350 mg Capsule 1,050 mg PO HS [place] 1,000 mg PO BID Turmeric/Curcumin 1 tab PO TID Trulicity 0.75 mg/0.5 mL pen injector 0.75 mg subcut WK Rx Instructions: TUESDAYS Referrals Referrals: Elizabeth Barr DO [Primary Care Provider] - Discharge Problem: Chest pain Qualifiers: Chest pain type: unspecified Qualified Code(s): R07.9 - Chest pain, unspecified Anemia Qualifiers: Anemia type: unspecified type Qualified Code(s): D64.9 - Anemia, unspecified Abdominal pain Qualifiers: Abdominal location: unspecified location Qualified Code(s): R10.9 - Unspecified abdominal pain
[2024-09-02] MEDS: HYDROmorphone INJ 0.5 MG/0.5 ML SYR IV STA (17:55)
[2024-09-02] MEDS: ONDANSETRON INJ 2 MG/ML 2 ML VIAL IV STA (17:57)
[2024-09-02] MEDS: SODIUM CHLORIDE 0.9% 500 ML IV ONE (17:57)
[2024-09-02 18:01] LABS: Basophils # (auto) 0.05 K/uL (0.00-0.20); Basophils % (auto) 0.6 %; Eosinophils # (auto) 0.23 K/uL (0.00-0.50); Eosinophils % (auto) 2.6 %; Hematocrit (blood only) 34.1 % (37.0-47.0); Hemoglobin 10.9 g/dl (12.0-16.0); Immature Granulocytes # (auto) 0.03 K/uL (0.01-0.20); Immature Granulocytes % (auto) 0.3 %; Lymphocytes # (auto) 3.15 K/uL (1.20-3.40); Lymphocytes % (auto) 35.2 %; Mean Corpuscular Hemoglobin 26.7 pg (25.0-34.0); Mean Corpuscular Volume 83.6 fL (80.0-100.0); Mean Platelet Volume 9.1 fL (9.4-12.4); Monocytes # (auto) 0.97 K/uL (0.11-0.59); Monocytes % (auto) 10.8 %; Neutrophils # (auto) 4.53 K/uL (1.40-6.50); Neutrophils % (auto) 50.5 %; Platelet Count 508 K/uL (130-400); RDW Coefficient of Variation 15.6 % (11.5-14.5); RDW Standard Deviation 47.2 fL (36.4-46.3); Red Blood Count 4.08 M/uL (4.20-5.40); White Blood Count 8.96 K/ul (4.8-10.8)
[2024-09-02 18:02] LABS: iSTAT Creatinine 1.1 mg/dl (0.6-1.3); iSTAT Hemoglobin 11.9 g/dl (12.0-16.0); iSTAT Ionized Calcium 1.22 mmol/l (1.12-1.32); iSTAT Potassium 4.4 mmol/L (3.3-5.0)
[2024-09-02] MEDS: OPTIRAY 320 125ml IV ONE (18:07)
[2024-09-02 18:11] LABS: Alanine Aminotransferase 10 U/L (7-52); Albumin Globulin Ratio 1.4 (0.9-2); Albumin Level 4.2 gm/dl (3.4-5.0); Alkaline Phosphatase 57 U/L (34-104); Anion Gap 5 (3-11); Aspartate Aminotransferase 15 U/L (13-39); BUN Creatinine Ratio 21.4 (10-20); Bilirubin,Total 0.4 mg/dl (0.2-1.0); Blood Urea Nitrogen 21 mg/dl (6-23); Calcium 9.4 mg/dl (8.6-10.3); Carbon Dioxide 31 mmol/L (21-32); Chloride 101 mmol/L (98-107); Creatinine Clr Calc Pharmacy 77.7 ml/min; Globulin 2.9 gm/dl (2.5-4.0); Glucose 100 mg/dl (70-99(Fasting)); Lipase 32 U/L (11-82); Potassium 4.1 mmol/L (3.5-5.1); Sodium 137 mmol/L (136-145); Total Protein 7.1 gm/dl (6.0-8.3)
[2024-09-02 18:18] LABS: Troponin I High Sensitivity < 2.3 pg/ml (0-14)
--- OUTSIDE RECORDS SUMMARY | 2024-09-02 19:34 | External Medical Summary | Summary of Care ---
Author Name Unknown Organization [facility] Address [address] [address] Phone [phone] Care Team Providers Care Blind Lacer Name Role Phone Elizabeth Barr Primary Care Provi mickie Reason for Visit * Reason Onset Date Comments Precert Not Needed 08/08/2024 cosentyx Encounter Details Date Type Department Care Team (Late st Contact Info) Description 08/08/2024 Telephone Rheumatology [facility] [address] [place] [address] Luis Bob [facility] [address] [facility] [address] Precert Not Needed (cosentyx) Allergies Active Allergy Reactions Criticality Noted Date Comments Eugenol 12/24/2020 Other reaction(s): broke out in lesions in her gums. Penicillins 04/15/2007 Pineapple Anaphylaxis High 06/24/2020 Other reaction(s): throat closes up Sulfa Antibiotics Nausea/vomiting 06/24/2020 Tramadol Neuro complications (Please comment) 06/24/2020 Other reaction(s): almost passed out documented as of this encounter (statuses as of 08/08/2024) Medications Rosuvastatin Calcium 10 MG Oral Tablet (Crestor) Take 1 Tablet by mouth in the morning. Active Omeprazole 40 MG Oral Capsule Delayed Release (PriLOSEC) Take 1 Capsule by mouth in the morning. 1 Active metFORMIN HCl ER 500 MG Oral Tablet Extended Release 24 Hour (Glucophage XR) Take 1 Tablet by mouth in the morning and 1 Tablet at noon and 1 Tablet before bedtime. 0 Active Lisinopril 20 MG Oral Tablet (Prinivil) Take 1 Tablet by mouth in the morning. 0 Active Fluticasone Propionate 50 MCG/ACT Nasal Suspension (Flonase) Administer 1 [place] into each nostril in the morning. 0 Active D3 Maximum Strength 125 MCG (5000 UT) Oral Capsule (Cholecalciferol ) Take 1 Capsule by mouth in the morning. Active busPIRone HCl 5 MG Oral Tablet (Buspar) Take 1 Tablet by mouth in the morning and 1 Tablet before bedtime. 0 Active Aspirin 81 MG Oral Tablet Delayed Release Take 1 Tablet by mouth in the morning. Active Vitamin C 1000 MG Oral Tablet Take 1 Tablet by mouth in the morning. Active Fexofenadine HCl 180 MG Oral Tablet (Kia) Take 1 Tablet by mouth in the morning. Active Multivitamin Adults Oral Tablet Take by mouth . Acti ve NATURAL SUPPLEMENT Take by mouth daily . Fish oil 2000mg 4 caps daily Active CoQ10 100 MG Oral Capsule Take by mouth daily . Active Vitamin B12 100 MCG Oral Tablet Take by mouth daily . Active Vitamin B-6 50 MG Oral Tablet Take 1 Tablet by mouth in the morning. Active Biotin 34817 MCG Oral Tablet Take by mouth daily . Active Turmeric Curcumin 500 MG Oral Capsule Take by mouth . A ctive NATURAL SUPPLEMENT Take by mouth daily . Proteolytic enzymes, joint support Active OneTouch Verio In Vitro Strip 2 Active OneTouch Delica Plus [id number] 2 Active Zolpidem Tartrate 10 MG Oral Tablet (Ambien) Take 1 Tablet by mouth at bedtime as needed. 2 Active Flax Seed Oil 1000 MG Oral Capsule 1 Capsule. 1 daily 3 Active Cosentyx Sensoready Pen 150 MG/ML Subcutaneous Solution Auto-injector (Secukinumab) INJECT 1 PEN UNDER THE SKIN EVERY 4 WEEKS 1 mL 5 4 Active Diclofenac Sodium 50 MG Oral Tablet Delayed Release (Voltaren) TAKE 1 TABLET BY MOUTH TWICE A DAY WITH FOOD 180 Tablet 2 4 Active Sertraline HCl 50 MG Oral Tablet (Zoloft) Take 1 Tablet by mouth in the morning. 1 daily. 5 Active Trulicity 0.75 MG/0.5ML Subcutaneous Solution Auto-injector weekly Active Milk Thistle 1000 MG Oral Capsule Take 1 Capsule by mouth in the morning. Active Elderberry 500 MG Oral Capsule Take by mouth. Active NATURAL SUPPLEMENT Take by mouth daily. Elderberry 3000mg Active NATURAL SUPPLEMENT Take by mouth daily. Moringa 2000mg daily Active Polyethylene Glycol 3350 17 GM/SCOOP Oral Powder (MiraLax) Take 17 g by mouth in the morning and 17 g before bedtime. Active documented as of this encounter (statuses as of 08/08/2024) Active Problems Problem Noted Date Diagnosed Date Encounter for long-term (current) use of medicat ions 10/06/2022 Ankylosing spondylitis 08/21/2021 Overview (10/06/2022): sees Dr. Arguelles sees Dr. Arguelles sees Dr. Arguelles sees Dr. Arguelles sees Dr. Arguelles Hypertension 08/21/2021 Neuropathy in diabetes 08/21/2021 Mixed hyperlipidemia 08/12/2010 Pyelonephritis Pain in joint involving lower leg Overview (04/15/2007): work comp l knee inj. Other allergic rhinitis Overview (03/09/2017): ICD-10 update of inactive term documented as of this encounter (statuses as of 08/08/2024) Immunizations Name Administration Dates Next Due COVID-19 mRNA, LNP-s, No Pre serve, 2-Dose Series (Moderna) 03/20/2021,07/23/2020,06/20/2020 Hepatitis B, 20+ yrs 10/09/2021,04/18/2021,02/28 Meningococcal MCV4P Conjugat e Vaccine (Menactra) 08/19/2008 Pneumococcal Conjugate Vacc, 13 Valent (Prevnar) 01/01/2014 Pneumococcal Polysaccharide PPV23 (Pneumovax) 02/19/2020,04/03/2014,08/19/2008 Season Influenza, Quad, PF, Adjuvanted, 65+ Yrs, IM (FLUAD) 03/05/2021 Seasonal Influenza, Quadriva lent,with Preserve, 3 yr & above, IM 02/03/2023,02/19/2020,02/19/2020,02/14,03/02/2012 TD, Preservative Free 02/03/2018 documented as of this encounter Social History Tobacco Use Types Packs/Day Years Used Date Smoking Tobacco: Never Smokeless Tobacco: Never Alcohol Use Standard Drinks/Week Comments Yes 0 (1 standard drink = 0.6 oz pur e alcohol) infrequent Comments No Sex and Gender Information Value Date Recorded Sex Assigned at Female 09/09/2021 6:57 AM EDT Legal Sex Female 5:56 AM EST Gender Identity Female 09/09/2021 6:57 AM EDT Sexual Orientation Straight 09/09/2021 6: 57 AM EDT documented as of this encounter Miscellaneous Notes * Telephone Encounter - Kriss Moreno CPhT - 08/08/2024 12:01 PM EDT Rheumatology Pre-Certification Response Approved - Script on file Thank you, Kriss Moreno CPhT [facility] 08/08/2024,12:01 PM * Telephone Encounter - Rita Stevens [facility] - 08/08/2024 9:11 AM EDT Rheumatology Re-Certification Request Medication/Disease State Information: Diagnosis: Ankylosing spondylitis [M45.9] Medication/Dose/Route/Interval: Secukinumab SQ Maintenance: 150 mg once monthly Comments: NEW INSURANCE as per MD Previously Tried Therapy: Previously tried/failed/contraindicated: Humira, ASA, meloxicam, naproxen, prednisone TB and Hep B Testing Completed and WNL: Yes Reauthorization: Yes- Patient is improving greater than 20% from baseline while on medication As per Dr. Bob, "She is on Cosentyx with good response. She has a least 80-90% better on treatment." Rheumatology Office Information: Landscape Technician: Luis Bob ( ) Thank you and have a wonderful day, Rita Stevens RPh * Telephone Encounter - Luis Bob MD - 08/08/2024 8:57 AM EDT Pharmacy-does she need a new authorization for Cosentyx?. She did change insurance this year. She is on Cosentyx with good response. She has a least 80-90% better on treatment. documented in this encounter Plan of Treatment Upcoming Encounters Date Type Department Care Team (Late st Contact Info) Description 08/09/2025 8:20 AM EDT Office Visit Rheumatology [facility] [address] [place] [phone] Luis Bob MD [address] [facility] [address] Health Maintenance Due Date Last Done Comments Depression Screening 1984 HIV Screening 1987 Diabetic Eye Exam 1990 Diabetic Foot Exam 1990 HPV/Co-Test 2002 Cervical Cancer Screening 04/15/2010 Pap Smear 04/15/2010 04/15/2007 Mammogram 2012 Cologuard 2017 Colonoscopy 2017 Colorectal Cancer Screening 2017 Fecal Occult Blood Test 2017 Sigmoidoscopy 2017 DTap/Tdap Vaccines (1 - Tdap) 02/04/2018 02/03/2018 HbA1c 07/04/2021 01/01/2021 Albumin/Creatinine Ratio 01/01/2022 01/01/2021 GFR 06/23/2023 06/23/2022, 12/15, 07/25/2021, Additional history exists COVID-19 Vaccine (7 - Moderna risk 2023- season) 2024 02/04/2024, 02/26/2023, 10/03/2021, Additional history exists Pneumococcal Vaccine: 50+ Years (4 of 4 - PCV20 or PCV21) 02/18/2025 02/19/2020, 04/03/2014, 01/01/2014, Additional history exists Lipid Panel 01/01/2026 01/01/2021 MENINGOCOCCAL (MENACTRA/MENVEO) Aged Out 08/19/2008 No longer eligible based on patient's age to complete this topic Hepatitis B Vaccine Completed 10/09/2021, 04/18/2021, 02/28/2021 Zoster Vaccines Completed 12/24/2023, 09/24/2023 Influenza Vaccine (FLU shot) Completed , 02/03/2023, 03/05/2021, Additional history exists HPV (Gardasil) Vaccine Aged Out No lo nger eligible based on patient's age to complete this topic Meningitis B Vaccine (Bexsero/Trumemba) Aged Out No longer eligible based on patient's age to complete this topic documented as of this encounter Medical Devices Not on filedocumented as of this encounter Care Teams Blind Lacer Relationship Specialty Start Date End Date Elizabeth Barr DO [address] [place] [address] PCP - General Family Medicine 01/05/24 documented as of this encounter
--- OUTSIDE RECORDS SUMMARY | 2024-09-02 19:34 | External Medical Summary | Summary of Care ---
Author Name Unknown Organization [facility] Address [address] [facility] [place] [address] Phone [phone] Care Team Providers Care Supervisor Wheel Shop Name Role Phone Elizabeth Barr Primary Care Provi mickie Reason for Visit * Reason Comments Rheum Follow Up Recheck Encounter Details Date Type Department Care Team (Late st Contact Info) Description 08/08/2024 8:20 AM EDT Office Visit Rheumatology [facility] [address] [place] [address] Luis Bob MD [address] [facility] [place] [address] Ankylosing spondylitis of multiple sites in spine (HCC)*; Encounter for long-term (current) use of medications Allergies Active Allergy Reactions Criticality Noted Date [...] 1 Tablet by mouth in the morning. 021 Active Omeprazole 40 MG Oral Capsule Delayed Release (PriLOSEC) Take 1 Capsule by mouth in the morning. Active metFORMIN HCl ER 500 MG Oral Tablet Extended Release 24 Hour (Glucophage XR) Take 1 Tablet by mouth in the morning and 1 Tablet at noon and 1 Tablet before bedtime. Active Lisinopril 20 MG Oral Tablet (Prinivil) Take 1 Tablet by mouth in the morning. Active Fluticasone Propionate 50 MCG/ACT Nasal Suspension (Flonase) Administer 1 [place] into each nostril in the morning. Active D3 Maximum Strength 125 MCG (5000 UT) Oral Capsule (Cholecalcifero l) Take 1 Capsule by mouth in the morning. Active busPIRone HCl 5 MG Oral Tablet (Buspar) Take 1 Tablet by mouth in the morning and 1 Tablet before bedtime. Active Aspirin 81 MG Oral Tablet Delayed [...] by mouth in the morning. Active Biotin 18710 MCG Oral Tablet Take by mouth daily . Active Turmeric Curcumin 500 MG Oral Capsule Take by mouth . A ctive NATURAL SUPPLEMENT Take by mouth daily . Proteolytic enzymes, joint support Active OneTouch Verio In Vitro Strip Active OneTouch Delica Plus [id number] Active Zolpidem Tartrate 10 MG Oral Tablet (Ambien) Take 1 Tablet by mouth at bedtime as needed. Active Flax Seed Oil 1000 MG Oral Capsule 1 Capsule. 1 daily 023 Active Cosentyx Sensoready Pen 150 MG/ML Subcutaneous Solution Auto-injector (Secukinumab) INJECT 1 PEN UNDER THE SKIN EVERY 4 WEEKS 1 mL 5 Active Diclofenac Sodium 50 MG Oral Tablet Delayed Release (Voltaren) TAKE 1 TABLET BY MOUTH TWICE A DAY WITH FOOD 180 Tablet 2 024 Active Sertraline HCl 50 MG Oral Tablet (Zoloft) Take 1 Tablet by mouth in the morning. 1 daily. 025 Active Trulicity 0.75 MG/0.5ML Subcutaneous Solution Auto-injector [...] morning and 17 g before bedtime. Active Sertraline HCl 25 MG Oral Tablet (Zoloft) Take 1 Tablet by mouth in the morning. 021 2024 Discontinued Ozempic (1 MG/DOSE) 4 MG/3ML Subcutaneous Solution Pen-injector INJECT 1MG SUBCUTANEOUSLY EVERY 7 DAYS 022 2024 Discontinued documented as of this encounter (statuses as [...] Date Smoking Tobacco: Never Smokeless Tobacco: Never Tobacco Cessation:Counseling Given: Not Answered Alcohol Use Standard Drinks/Week Comments Yes 0 (1 standard drink = 0.6 oz pur e alcohol) infrequent Comments No Sex and Gender Information Value Date Recorded Sex Assigned at Female 09/09/2021 6:57 AM EDT Legal Sex Female 5:56 AM EST Gender Identity Female 09/09/2021 6:57 AM EDT Sexual Orientation Straight 09/09/2021 6: 57 AM EDT documented as of this encounter Last Filed Vital Signs Vital Sign Reading Time Taken Comments Blood Pressure - - Pulse - - Temperature 36.5 °C (97.7 °F) 08/08/2024 8:20 AM ED T Respiratory Rate - - Oxygen Saturation - - Inhaled Oxygen Concentration - - Weight - - Height - - Body Mass Index - - documented in this encounter Progress Notes * Luis Bob MD - 08/08/2024 8:31 AM EDT Subjective: Patient seen today for further follow up evaluation of ankylosing spondylitis. Since the last visitshe reports that overall she is doing okay from her . She is due for Cosentyx tonight. No missed doses. She sent me blood work in the fall that she had done no overall things looked okay. She has blood work coming up in a few weeks. Do not see a recent CBC. She reports that as long she follows her anti-inflammatory diet and does stretching exercises she does better.. Most of her pain is her lower back with sometimes has neck and shoulder pains. Never had uveitis or dactylitis. Musculoskeletal ROS: . Abnormal: back pain . AM stiffness (hours): 0.5 . Pain scale (0-10): 3 Other ROS: . Constitutional: normal . Head normal . Eyes: normal . Ears, nose, throat, mouth: normal . Cardiovascular: normal . Respiratory: normal . Gastrointestinal: normal . Genitourinary: normal . Skin: normal . Neurologic: numbness All other ros reviewed and negative Social History: Social History Tobacco Use Smoking status: Never Smokeless tobacco: Never Substance Use Topics Alcohol use: Yes Comment: infrequent Vaping/E-Cigarette Use Vaping/E-Cigarette Substances Vaping/E-Cigarette Devices Current Outpatient Medications Medication Sig Dispense Refill Rosuvastatin Calcium 10 MG Oral Tablet (Crestor) Take 1 Tablet by mouth in the morning. Omeprazole 40 MG Oral Capsule Delayed Release (PriLOSEC) Take 1 Capsule by mouth in the morning. metFORMIN HCl ER 500 MG Oral Tablet Extended Release 24 Hour (Glucophage XR) Take 1 Tablet by mouthin the morning and 1 Tablet at noon and 1 Tablet before bedtime. Lisinopril 20 MG Oral Tablet (Prinivil) Take 1 Tablet by mouth in the morning. Fluticasone Propionate 50 MCG/ACT Nasal Suspension (Flonase) Administer 1 [place] into each nostril in the morning. D3 Maximum Strength 125 MCG (5000 UT) Oral Capsule (Cholecalciferol) Take 1 Capsule by mouth in themorning. busPIRone HCl 5 MG Oral Tablet (Buspar) Take 1 Tablet by mouth in the morning and 1 Tablet before bedtime. Aspirin 81 MG Oral Tablet Delayed Release Take 1 Tablet by mouth in the morning. Vitamin C 1000 MG Oral Tablet Take 1 Tablet by mouth in the morning. Fexofenadine HCl 180 MG Oral Tablet (Kia) Take 1 Tablet by mouth in the morning. Multivitamin Adults Oral Tablet Take by mouth . NATURAL SUPPLEMENT Take by mouth daily . Fish oil 2000mg 4 caps daily CoQ10 100 MG Oral Capsule Take by mouth daily . Vitamin B12 100 MCG Oral Tablet Take by mouth daily . Vitamin B-6 50 MG Oral Tablet Take 1 Tablet by mouth in the morning. Biotin 91614 MCG Oral Tablet Take by mouth daily . Turmeric Curcumin 500 MG Oral Capsule Take by mouth . NATURAL SUPPLEMENT Take by mouth daily . Proteolytic enzymes, joint support OneTouch Verio In Vitro Strip OneTouch Delica Plus [id number] Zolpidem Tartrate 10 MG Oral Tablet (Ambien) Take 1 Tablet by mouth at bedtime as needed. Flax Seed Oil 1000 MG Oral Capsule 1 Capsule. 1 daily Cosentyx Sensoready Pen 150 MG/ML Subcutaneous Solution Auto-injector (Secukinumab) INJECT 1 PEN UNDER THE SKIN EVERY 4 WEEKS 1 mL 5 Diclofenac Sodium 50 MG Oral Tablet Delayed Release (Voltaren) TAKE 1 TABLET BY MOUTH TWICE A DAY WITH FOOD 180 Tablet 2 Sertraline HCl 50 MG Oral Tablet (Zoloft) Take 1 Tablet by mouth in the morning. 1 daily. Milk Thistle 1000 MG Oral Capsule Take 1 Capsule by mouth in the morning. Elderberry 500 MG Oral Capsule Take by mouth. NATURAL SUPPLEMENT Take by mouth daily. Elderberry 3000mg NATURAL SUPPLEMENT Take by mouth daily. Moringa 2000mg daily Polyethylene Glycol 3350 17 GM/SCOOP Oral Powder (MiraLax) Take 17 g by mouth in the morning and 17g before bedtime. Trulicity 0.75 MG/0.5ML Subcutaneous Solution Auto-injector weekly No current facility-administered medications for this visit. Physical Exam: Temp 36.5 °C (97.7 °F) (Infrared ) General: alert, healthy, no distress, and well nourished Neck: supple, no adenopathy, thyroid normal size, non-tender, without nodularity Lymph: no palpable lymphadenopathy Heart: regular rate & rhythm, no murmur, and no gallops Lungs: clear to auscultation , no rales, wheezes or rhonchi Abdomen: abdomen soft, non-tender, and normal bowel sounds Musculoskeletal Exam: Negative straight leg testing bilaterally Normal range of motion both hips without pain Good cervical rotational range of motion without pain No pain to palpation over the lower back or SI joints Assessment: (M45.0) Ankylosing spondylitis of multiple sites in spine (HCC) (primary encounter diagnosis) (Z79.899) Encounter for long-term (current) use of medications She is doing well on Cosentyx with minimal symptoms from her . She has a least 80 to 90% better since being on treatment. Will check CBC with upcoming labs. Plan: 1. Continue Cosentyx every 4 weeks 2. CBC ordered and slips given to her 3. Contact with any issues 4. Return to clinic in 1 year Luis Bob MD Department of Rheumatology documented in this encounter Nursing Notes * Joseph Woods LPN - 08/08/2024 8:12 AM EDT Chief Complaint Patient presents with Rheum Follow Up Recheck documented in this encounter Plan of Treatment Upcoming Encounters Date Type Department Care Team (Late st Contact Info) Description 08/09/2025 8:20 AM EDT Office Visit Rheumatology [facility] [address] [place] [phone] Luis Bob MD [address] [place], [place] [address] [address] Scheduled Orders Name Type Priority Associated Diagnoses Orde r Schedule CBC WITH WBC DIFFERENTIAL Lab Routine Ankylosing spondylitis of multiple sites in spine (HCC) Encounter for long-term (current) use of medications Ordered: 08/08/2024 Health Maintenance Due Date Last Done Comments [...] Not on filedocumented as of this encounter Visit Diagnoses Diagnosis Ankylosing spondylitis of multiple sites in spine (HCC)- Primary Ankylosing spondylitis Encounter for long-term (current) use of medications Encounter for long-term (current) use of other medications documented in this encounter Care Teams Supervisor Wheel Shop Relationship Specialty Start Date End Date Elizabeth Barr DO [address] [place] [address] PCP - General Family Medicine 01/05/24 documented as of this encounter
--- OUTSIDE RECORDS SUMMARY | 2024-09-02 19:34 | External Medical Summary | Summary of Care ---
Author Name Unknown Organization [facility] Address [address] [place] [facility] [place] [address] Phone [phone] Care Team Providers Care Lab Systems Analyst Name Role Phone Elizabeth Barr Primary Care Provi mickie Reason for Visit * Reason Comments eRx-Medication Refill Encounter Details Date Type Department Care Team (Late st Contact Info) Description 08/24/2024 Refill Rheumatology [place] [id number] [place] [address] J Carlos Esquivel MD [facility] [address] [place] [address] Allergies Active Allergy Reactions Criticality Noted Date Comments Eugenol 12/24/2020 Other reaction(s): broke out in lesions in her gums. Penicillins 04/15/2007 Pineapple Anaphylaxis High 06/24/2020 Other reaction(s): throat closes up Sulfa Antibiotics Nausea/vomiting 06/24/2020 Tramadol Neuro complications (Please comment) 06/24/2020 Other reaction(s): almost passed out documented as of this encounter (statuses as of 08/24/2024) Medications Rosuvastatin Calcium 10 MG Oral Tablet (Crestor) Take 1 Tablet by mouth in the morning. 06/12/19 21 Active Omeprazole 40 MG Oral Capsule Delayed Release (PriLOSEC) Take 1 Capsule by mouth in the morning. 06/12/19 21 Active metFORMIN HCl ER 500 MG Oral Tablet Extended Release 24 Hour (Glucophage XR) Take 1 Tablet by mouth in the morning and 1 Tablet at noon and 1 Tablet before bedtime. 04/06/20 Active Lisinopril 20 MG Oral Tablet (Prinivil) Take 1 Tablet by mouth in the morning. 04/10/20 Active Fluticasone Propionate 50 MCG/ACT Nasal Suspension (Flonase) Administer 1 [place] into each nostril in the morning. 04/06/20 Active D3 Maximum Strength 125 MCG (5000 UT) Oral Capsule (Cholecalcifero l) Take 1 Capsule by mouth in the morning. Active busPIRone HCl 5 MG Oral Tablet (Buspar) Take 1 Tablet by mouth in the morning and 1 Tablet before bedtime. 05/01/20 Active Aspirin 81 MG Oral Tablet Delayed Release Take 1 Tablet by mouth in the morning. Active Vitamin C 1000 MG Oral Tablet Take 1 Tablet by mouth in the morning. Active Fexofenadine HCl 180 MG Oral Tablet (Kia) Take 1 Tablet by mouth in the morning. Active Multivitamin Adults Oral Tablet Take by mouth . Active NATURAL SUPPLEMENT Take by mouth daily . Fish oil 2000mg 4 caps daily Active CoQ10 100 MG Oral Capsule Take by mouth daily . Active Vitamin B12 100 MCG Oral Tablet Take by mouth daily . Active Vitamin B-6 50 MG Oral Tablet Take 1 Tablet by mouth in the morning. Active Biotin 41339 MCG Oral Tablet Take by mouth daily . Active Turmeric Curcumin 500 MG Oral Capsule Take by mouth . Active NATURAL SUPPLEMENT Take by mouth daily . Proteolytic enzymes, joint support Active OneTouch Verio In Vitro Strip 11/08/19 Active OneTouch Delica Plus [id number] 11/08/19 Active Zolpidem Tartrate 10 MG Oral Tablet (Ambien) Take 1 Tablet by mouth at bedtime as needed. 12/23/19 22 Active Flax Seed Oil 1000 MG Oral Capsule 1 Capsule. 1 daily 09/23/19 23 Active Diclofenac Sodium 50 MG Oral Tablet Delayed Release (Voltaren) TAKE 1 TABLET BY MOUTH TWICE A DAY WITH FOOD 180 Tablet 2 03/10/20 24 Active Sertraline HCl 50 MG Oral Tablet (Zoloft) Take 1 Tablet by mouth in the morning. 1 daily. 06/23/19 25 Active Trulicity 0.75 MG/0.5ML Subcutaneous Solution Auto-injector [...] morning and 17 g before bedtime. Active Cosentyx Sensoready Pen 150 MG/ML Subcutaneous Solution Auto-injector (Secukinumab) INJECT 1 PEN UNDER THE SKIN EVERY 4 WEEKS 1 mL 5 08/25/19 25 Active Cosentyx Sensoready Pen 150 MG/ML Subcutaneous Solution Auto-injector (Secukinumab) INJECT 1 PEN UNDER THE SKIN EVERY 4 WEEKS 1 mL 5 03/08/20 24 025 Discontinued documented as of this encounter (statuses as of 08/24/2024) Active Problems Problem Noted Date Diagnosed Date [...] as of this encounter (statuses as of 08/24/2024) Immunizations Name Administration Dates Next Due COVID-19 [...] encounter Miscellaneous Notes * Telephone Encounter - Sarbjit Graham RPh - 08/24/2024 1:46 PM EDTSigned Prescriptions: Disp Refills Cosentyx Sensoready Pen 150 MG/ML Subcutan*1 mL 5 Sig: INJECT 1PEN UNDER THE SKIN EVERY 4 WEEKSAuthorizing Provider: J CARLOS ESQUIVEL * Telephone Encounter - J Carlos Esquivel MD - 08/24/2024 1:18 PM EDT signed documented in this encounter Plan of Treatment Upcoming Encounters Date Type Department Care Team (Late st Contact Info) Description 08/09/2025 8:20 AM EDT Office Visit Rheumatology [facility] [address] [place] [address] J Carlos Esquivel MD [address] [place] [address] Health Maintenance Due Date Last Done Comments [...] filedocumented as of this encounter Care Teams Lab Systems Analyst Relationship Specialty Start Date End Date Elizabeth Barr DO [address] [place] [address] PCP - General Family Medicine 01/05/24 documented as of this encounter
--- NOTE | 2024-09-02 20:08 | CT Scan Report ---
EXAM: CT abd pelvis IV con only CLINICAL HISTORY: mid epigastric abd pain TECHNIQUE: CT of the abdomen and pelvis was performed with contrast, with the following protocol: axial images with, and reconstructed coronal and sagittal images. One of the following dose reduction techniques was utilized for this exam: Automated exposure control, adjustment of the mA and/or kV according to patient size, and use of iterative reconstruction. COMPARISON: Comparison is made with previous imaging studies dated 07/03/2019. FINDINGS: Abdomen: Anterior abdominal wall subcutaneous complicated cystic lesion with thick smooth enhancing wall measuring 43x36 mm with mild regional stranding of fat planes Liver: Normal in size, shape, and density. Hypodense focal lesion seen at segment III (left hepatic lobe), measuring 14x12 mm with no contrast enhancement Hepatic vasculature and biliary ducts are unremarkable. Gallbladder and Biliary System: Not visualized The common bile duct is normal in caliber without dilation. Pancreas: Pancreatic head are visualized and appear normal in size and density. body, and tail not proper visualized. No pancreatic masses or calcifications were noted. The pancreatic duct is not dilated. Spleen: Not visualized Appendix: not proper visualized Kidneys and Adrenal Glands: Both kidneys are normal in size, shape, and position. Cortical thickness is within normal limits. No renal calculi or hydronephrosis. Adrenal glands are unremarkable with no evidence of masses or hyperplasia. small right supra renal nodule measuring 4 mm Pelvis: Urinary Bladder: Normal in contour and wall thickness. No intraluminal lesions identified. Uterus: Normal in size and contour. IUD in place No masses or abnormal thickening. Ovaries: Not well visualized, but no gross abnormalities noted. Vagina: Normal in contour and wall thickness. Cervix: No evidence of mass or abnormal thickening. Peritoneal and Retroperitoneal Structures: No free fluid or abnormal fluid collections were identified within the abdomen or pelvis. No lymphadenopathy was noted. Bowel: The visualized bowel loops are normal in caliber and appearance. No evidence of bowel obstruction or wall thickening. Regressive course of the previously seen anterior abdominal wall hernia Bones and Soft Tissues: Pelvic bones and soft tissues are unremarkable. No fractures or abnormal masses were identified. IMPRESSION: 1. Anterior abdominal wall subcutaneous complicated cystic lesion, as described, likely a 4x3.5 cm abscess, new. 2. Small left hepatic lobe focal lesion, likely cyst, stable. 3. Small right suprarenal nodule likely adenoma, new. 4. Anterior abdominal wall hernia, not appear in the current study. Electronically signed by Cesar Abernathy 09-02-2024 8:08 PM
--- NOTE | 2024-09-02 20:08 | CT Scan Report ---
EXAM: CT angio chest PE protocol CLINICAL HISTORY: PE cp and sob TECHNIQUE: CT angiography of the chest was performed with and without intravenous contrast with the following protocol: axial images with, reconstructed coronal and sagittal images. Non-contrast images were initially acquired, followed by contrast-enhanced images in arterial and venous phases. Intravenous contrast was administered using automated injection techniques. Bolus tracking was employed to optimize arterial phase imaging. One of these 3D techniques was utilized: Maximum Intensity Pixel (MIP), 3D Reconstructed Images, Volume Rendered Images, Surface Shaded Rendering. One of the following dose reduction techniques was utilized for this exam: Automated exposure control, adjustment of the mA and/or kV according to patient size, and use of iterative reconstruction. COMPARISON: x-ray dated 07/17/2024 was reviwed. FINDINGS: Aorta and Great Vessels: Ascending Aorta: Normal in caliber, no aneurysm, dissection, or significant atherosclerosis. Aortic Arch: Normal in caliber, no aneurysm, dissection, or significant atherosclerosis. Descending Aorta: Normal in caliber, no aneurysm, dissection, or significant atherosclerosis. Pulmonary Arteries: The main pulmonary artery and its branches are patent. No evidence of pulmonary embolism or significant stenosis. Heart: Mild cardiomegaly Minimal pericardial effusion Lungs and Pleura: Irregular nodular pleural thickening noted at the left upper lung lobe with a mildly enhancing pleural-based lesion noted at the apical segment of the left lower lung lobe measuring 17x 36 mm with foci of calcifications inside with no associated ribs destructions or erosions. Another similar 1 seen at the apical posterior segment of the left upper lung lobe measuring 15x 20 mm Middle lobe pneumatocele measuring 13 mm Lungs are clear without evidence of consolidation, collapse, or focal lesions. No pleural effusion . Mediastinum: No mediastinal mass or abnormal lymphadenopathy. Normal appearance of the trachea and central bronchi. Hilar Structures: Hilar structures are normal without enlargement. Chest Wall: Two circumscribed right lower inner quadrant breast nodules the largest measures 8x 7 mm, further sonography is advised Vascular Structures: Superior Vena Cava: Patent without evidence of stenosis or thrombus. Inferior Vena Cava: Patent without evidence of stenosis or thrombus. Bones and Soft Tissues: No fractures, lytic, or blastic lesions of the visualized bony structures. Soft tissues are unremarkable. Spine degenerative changes with osteophytes. IMPRESSION: 1. The study is negative for pulmonary embolism. 2. Irregular nodular pleural thickening noted at the left upper lung lobe with two pleural based masses as described above with the largest of them seen at the apical segment of the left lower lung lobe measuring 17x 36 mm. Differential diagnosis includes sequelae of prior granulomatous infection and mesothelioma. Clinical correlation and with CT are advised. Findings are not well-appreciated in prior x-ray. 3. Two circumscribed right lower inner quadrant breast nodules , further sonography is advised 4. Mild cardiomegaly with minimal pericardial effusion. New Electronically signed by Cesar Abernathy 09-02-2024 8:08 PM
--- NOTE | 2024-09-02 20:51 | XRay Report ---
EXAM: XR chest 1V portable CLINICAL HISTORY: Chest pain, nonspecific. TECHNIQUE: An X-ray image of the chest is obtained in AP projection. COMPARISON: 09.02.2024 study was reviewed and in comparison to 10.18.2019 study. FINDINGS: Pulmonary Parenchyma: Relatively elevated hemidiaphragmatic copula. Left pleural thickening with blunted costophrenic angle. Lungs are clear bilaterally. No evidence of consolidation, collapse, or focal opacities. No pulmonary nodules are identified. No evidence of pleural effusion. Heart and Mediastinum: Heart size and shape are normal. No mediastinal widening or masses. No hilar or mediastinal lymphadenopathy. Bony Thorax: Bony thorax appears intact without fractures or deformities. Soft Tissues: Soft tissues overlying the chest wall are unremarkable. IMPRESSION: Progression of the pleural thickening in comparison to 2019 study. Electronically signed by Cesar Abernathy 09-02-2024 8:51 PM
[2024-09-02] MEDS: cefTRIAXone SODIUM 2,000 MG/50 ML BAG IV STA (21:29)
[2024-09-02] MEDS: MoRPHine SULFATE 4 MG/ML 1 ML CARP\\VIAL IV STA (21:57)
--- NOTE | 2024-09-02 22:08 | History & Physical Report ---
Date of Service September 02, 2024 Assessment & Plan (1) Abdominal pain: (2) Chest pain: (3) Diabetes mellitus type 2, controlled, with complications: Plan 54-year-old female PMHx multiple abdominal surgeries, T2DM, hypercholesterolemia, HTN, ankylosing spondylitis, anxiety, GERD, and IBS presenting for new onset epigastric pain starting the day of arrival. ED evaluation reveals no leukocytosis, H&H 10.9/34.1; CMP with BUN/creatinine ratio 21.4, glucose 100; troponin <2.3, pending repeat; lipase 32; CXR progression of pleural thickening in comparison to the 2019 study; chest CTA negative for PE, irregular nodule pleural thickening noted in the CHARLY with 2 pleural-based masses, 2 circumcised right lower inner quadrant breast nodules, mild cardiomegaly and minimal pericardial effusion; CTAP anterior abdominal wall subcu complicated cystic lesion (likely 4 x 3.5 cm abscess), small left hepatic lobe focal lesion, small right suprarenal nodule likely adenoma, anterior abdominal wall hernia not apparent current study; EKG NSR 66 bpm without ischemic changes.; Provided with 500 mL NSS, ondansetron 4 mg IV, hydromorphone 0.25 mg, and ceftriaxone 2 g IV in ED. #Abdominal pain/Cystic lesion Onset epigastric pain starting day of arrival, with nausea but no vomiting; Multiple abdominal surgeries in past to include Whipple, Splenectomy, and hernia repairs; Most recent surgery 2022. No f/c. Prior incisional hernia (2019) and suture granuloma (2022) that required surgical intervention. Prior wound culture with no growth. Also chronic constipation, on MiraLax nikunj. Received Ceftriaxone in ED. - CBC w/o leukocytosis; lipase 32; LFTs WNL - CBC am - CTAP anterior abdominal wall subcu complicated cystic lesion (likely 4 x 3.5 cm abscess) - NPO midnight - BMP am - IVF LR @ 100 mL/hr - Hold ASA, ? 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 Resolved. Suspect GI source more likely than cardiac at time of admission supported by normal trop and WNL EKG. - Trop < 2.3, pending repeat - EKG NSR without ischemic changes - Lipid panel 03/2024 WNL - Monitor on tele - Continue home omeprazole #T2DM H/o DMT2, on Trulicity, metformin at home. - Most recent A1C 03/2024 @ 5.6% - Hold home meds - SSI with target BSG range 110-140mg/dL, CF 30, carb ratio 15 - BSG ACHS while eating, q6h while npo - Pharm glycemic management consult placed, appreciate assistance - Adjust regimen as needed #HLD- Rosuvastatin #HTN- Lisinopril #GERD- Omeprazole #Anxiety/Insomnia- Buspirone, sertraline; Zolpidem prn #Ankylosing spondylitis- Cosentyx monthly #Thrombocytosis- Chronic since 2019; Plt 508 at admission Dispo: Admit, med/tele VTE prophylaxis: SCDs This document was dictated utilizing [employer]. Please excuse any grammatical errors that may be secondary to use of this software. Admission and Anticipated Discharge Date Admission Date: 09/02/2024 History of Present Illness Chief Complaint: Chest pain Primary Care Provider: Elizabeth Barr DO 54-year-old female PMHx multiple abdominal surgeries, T2DM, hypercholesterolemia, HTN, ankylosing spondylitis, anxiety, GERD, and IBS presenting for new onset epigastric pain starting the day of arrival. 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 Around 0130 she took a Rolaids which alleviated some of the pain but she still felt some nausea and took an antiemetic at that time. On the day of arrival, she woke up and noticed that the pain was mainly in her epigastric region and she continued to have nausea. States that the pain was radiating slightly into her back and she felt overly bloated. She again took an antiemetic at 0900 the day of arrival for nausea. Has not had any vomiting. States that the pain at its maximum is a 7 out of 10 on the pain scale, and just feels a constant pain in the epigastric area. Current pain is a 5 out of 10 on the pain scale. She did have an episode of SOB on the day of arrival with exertion, but no SOB at rest or currently. Admits to episode of diarrhea the night [employer]ENTICE ST[employer]LIST but otherwise often has problems with constipation. Denies any current chest pain, palpitations, or SOB. States her only concern at this time is the ongoing pain that she is having which is new onset for her. Patient has multiple abdominal surgeries in the past, most recent surgery 2022 in which there was an abscess that needs surgical intervention. Denying palpitations, vomiting, constipation, numbness/tingling, LUTS, fever or chills, URI symptoms, weakness, or syncope. Only other concern is that she states that she sometimes gets small blisters on her feet mainly after exercising. These do not break open and they have never caused her much pain other than some irritation. No history of fungal infections feet. ED evaluation reveals no leukocytosis, H&H 10.9/34.1; CMP with BUN/creatinine ratio 21.4, glucose 100; troponin <2.3, pending repeat; lipase 32; CXR progression of pleural thickening in comparison to the 2019 study; chest CTA negative for PE, irregular nodule pleural thickening noted in the CHARLY with 2 pleural-based masses, 2 circumcised right lower inner quadrant breast nodules, mild cardiomegaly and minimal pericardial effusion; CTAP anterior abdominal wall subcu complicated cystic lesion (likely 4 x 3.5 cm abscess), small left hepatic lobe focal lesion, small right suprarenal nodule likely adenoma, anterior abdominal wall hernia not apparent current study; EKG NSR 66 bpm without ischemic changes.; Provided with 500 mL NSS, ondansetron 4 mg IV, hydromorphone 0.25 mg, and ceftriaxone 2 g IV in ED. Please see Dr. Wilkins's attestation for adjustments/additions to treatment plan. Allergies Allergy/AdvReac Type Severity Reaction Status Date / Time pineapple Allergy Severe Anaphylaxis Verified 09/02/24 19:25 Penicillins Allergy Intermediate Hives (as Verified 09/02/24 19:25 baby) eugenol Allergy Mild Rash Verified 09/02/24 19:25 mold Allergy Mild Allergy Verified 09/02/24 19:25 tested > sinus issues tramadol AdvReac Intermediate Slurred Verified 09/02/24 19:25 speech, nauseous, dizziness morphine AdvReac Mild Itching Verified 09/02/24 19:25 Sulfa (Sulfonamide AdvReac Mild Nausea Verified 09/02/24 19:25 Antibiotics) Home Medications Medication Instructions Recorded Confirmed Type ascorbic acid (vitamin C) 1,000 mg 2 g PO QAM 11/06/19 09/02/24 History tablet (Vitamin C) aspirin 81 mg tablet,delayed 81 mg PO PM 11/06/19 09/02/24 History release cholecalciferol (vitamin D3) 125 250 mcg PO QAM 11/06/19 09/02/24 History mcg (5,000 unit) tablet (Vitamin D3) fluticasone propionate 50 2 spray intranasal HS 11/06/19 09/02/24 History mcg/actuation nasal spray,suspension (Flonase Allergy Relief) levonorgestrel 21 mcg/24 hr (up to 20 mcg intrauterine CONTINOUS 11/06/19 09/02/24 History 8 years) 52 mg intrauterine device (Mirena) lisinopril 20 mg tablet 20 mg PO QAM 11/06/19 09/02/24 History metformin 500 mg tablet 500 mg PO BID 11/06/19 09/02/24 History mv-min-vit C-ascorb 1.7 mg PO QAM 11/06/19 09/02/24 History Lk-Knj-Tyr-herb #124 333 mg-1.7 mg chewable tablet (Airborne (ascorbate sodium)) omeprazole 40 mg capsule,delayed 40 mg PO QAM 11/06/19 09/02/24 History release rosuvastatin 10 mg tablet 10 mg PO QPM 11/06/19 09/02/24 History buspirone 5 mg tablet 5 mg PO BID 09/02/20 09/02/24 History zolpidem 10 mg tablet (Ambien) 10 mg PO HS PRN Sleep 09/02/20 09/02/24 History multivitamin (Multiple Vitamins 1 tab PO QAM 07/25/21 09/02/24 History tablet) biotin 10,000 mcg chewable tablet 10,000 mcg PO QAM 09/22/22 09/02/24 History coQ10 (ubiquinol) 100 mg capsule 100 mg PO QAM 09/22/22 09/02/24 History cyanocobalamin (vitamin B-12) 1,000 mcg PO QAM 09/22/22 09/02/24 History 1,000 mcg capsule diclofenac potassium 50 mg tablet 50 mg PO BID 09/22/22 09/02/24 History glucosamin 375 mg-chond 300 1 cap PO BID 09/22/22 09/02/24 History mg-collagen 50 mg-hyaluronic acid 2 mg cap pyridoxine (vitamin B6) 50 mg 100 mg PO QAM 09/22/22 09/02/24 History capsule (Vitamin B-6) secukinumab 150 mg/mL subcutaneous 150 mg subcut MONTHLY 09/22/22 09/02/24 History syringe (Cosentyx) Acv Gummies 1 tab PO DAILY 09/02/24 09/02/24 History Moringa 1,000 mg PO BID 09/02/24 09/02/24 History Turmeric/Curcumin 1 tab PO TID 09/02/24 09/02/24 History calcium carbonate (Calcium 600) 600 mg PO DAILY 09/02/24 09/02/24 History docusate sodium 100 mg capsule 100 mg PO DAILY 09/02/24 09/02/24 History dulaglutide 0.75 mg/0.5 mL 0.75 mg subcut WK 09/02/24 09/02/24 History subcutaneous pen injector (Trulicity) elderberry fruit 350 mg capsule 1,050 mg PO HS 09/02/24 09/02/24 History fexofenadine 180 mg tablet 180 mg PO DAILY 09/02/24 09/02/24 History milk thistle 500 mg capsule 1,000 mg PO HS 09/02/24 09/02/24 History omega-3 fatty acids 1,000 mg 3,000 mg PO DAILY 09/02/24 09/02/24 History capsule polyethylene glycol 3350 17 17 g PO BID 09/02/24 09/02/24 History gram/dose oral powder (Miralax) sertraline 50 mg tablet 50 mg PO QAM 09/02/24 09/02/24 History zinc gluconate 50 mg tablet 50 mg PO DAILY 09/02/24 09/02/24 History Past Med/Surg History Problem List (Updated 09/06/24 @ 11:08 by Fabby Lucas MD) Hives Soft tissue abscess Abdominal wall mass Abdominal pain (Acute) Anemia (Acute) Chest pain (Acute) Chest pain Diabetes mellitus type 2, controlled, with complications peripheral neuropathy feet Hx of asplenia Intractable cyclical vomiting with nausea Diabetes Allergies IUD (intrauterine device) in place Mirena 04/2021 Dry tooth socket Exposed mandibular bone Hypertension Hypercholesterolemia Menorrhagia with irregular cycle Ankylosing spondylitis (2017) Medical History Diabetic peripheral 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 Painful scar Contact dermatitis Surgical wound, non healing Postoperative seroma Ventral hernia Incisional hernia Vomiting and diarrhea History of COVID-02 NOVEMBER 2021>RESOLVED Morbid obesity Stress incontinence GERD (gastroesophageal reflux disease) IBS (irritable bowel syndrome) Diabetes mellitus, type 2 Pancreatic tumor Benign>HX Anxiety History of migraine headaches IUD (intrauterine device) in place Mirena inserted in OR 04/2021 Surgical History Status post hernia repair H/O abdominal surgery (10/01/22) Wound Exploration with Excision of Suture Granuloma with Placement of Antibiotic Beads(Not Applicable) - Sarbjit Andrade, DO History of tooth extraction History of gynecologic surgery MIRENA REMOVAL AND INSERTION UNDER ANESTHESIA H/O ventral hernia repair Open Ventral Hernia Repair with Mesh (11/23/19): Grade 3 view, MAC#3, ETT 7.5 at [facility] (weight at time 109kg) H/O breast biopsy RT > benign History of esophagogastroduodenoscopy (EGD) History of lung surgery Left VATS r/t "fluid build up" (2008) History of pancreatectomy Proximal subtotal (Whipple procedure) 2009 History of splenectomy History of wisdom tooth extraction History of dilatation and curettage History of cholecystectomy Family History Grandmother Hypertension Grandfather Hypertension Father Hypertension Grandmother (Maternal) Diabetes Bipolar disorder Hypothyroidism Grandfather (Maternal) Heart disease Grandfather (Paternal) Diabetes Heart disease Other No family history of adverse response to anesthesia Denies family history of Ovarian cancer Breast cancer Colorectal cancer Social History Smoking Status: Never smoker Second Hand Exposure: Yes ( A CHILD); Do You Dip or Chew Tobacco: No; Hx Alcohol Use: No Hx Substance Use: No Preferred Language: Welsh Communication Ability: Effective Visual Impairment: No Limitations Hearing Ability: Normal Automatic Pattern Edger Required: No Beliefs That Will Affect Care: None marital status: Single Current Living Situation: Parent Current Living Situation Comment: lives with mother and father at home current occupational status: employed 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 Other Information That Helps Us Care for You: No Feels Safe at Home: Yes Safety Concerns: Feels Safe At This Time Assistive Devices: None Assistive Devices Comment: right wrist brace for carpal tunnel Review of Systems Review of Systems: All systems reviewed & are unremarkable except as noted in Subjective Physical Exam Physical Exam: General: No acute distress Skin: Warm and dry; R foot/heel with dried skin present at the medial R heel and ball of foot; no drainage or erythema/edema Head: Normocephalic, atraumatic Eyes: PERRL, conjunctivae clear, sclera non-icteric ENT: External ear and ear canal without swelling; nose atraumatic; good dentition, tongue normal appearance, pharynx normal Neck: Supple, no LAD Cardio: RRR, no M/G/R, S1 and S2 normal Resp: No respiratory distress, Lungs CTA in all lobes bilaterally, no wheezes, rales, or rhonchi Abdomen: Abdominal surgical scar vertically, without gross skin changes; soft, symmetric; slight tenderness epigastric region; slightly hardened region just below the top portion of surgical scar, no open areas of drainage or erythema/edema; no hepatomegaly; Bowel sounds normoactive MSK: No deformities; pulses palpable and equal; no edema. Neuro: Awake, alert; Sensation intact bilaterally; CN grossly intact Psych: Appropriate mood and affect; good judgement and insight. Results & Data Results & Data Vital Signs (Past 12 Hours) Vital Signs Temp Pulse Resp BP Pulse Ox O2 Del Method 09/02/24 21:56 68 09/02/24 20:18 76 23 125/73 93 09/02/24 19:15 64 12 140/79 93 09/02/24 18:54 97 Room Air 09/02/24 18:21 63 9 L 137/78 94 09/02/24 18:18 70 11 L 166/83 H 96 Room Air 09/02/24 18:00 67 18 97 Room Air 09/02/24 17:52 67 09/02/24 17:29 36.9 C 80 16 185/92 H 99 Room Air Laboratory Results 09/02/24 09/02/24 17:49 17:45 WBC 8.96 RBC 4.08 L Hgb 10.9 L POC Hgb 11.9 L Hct 34.1 L POC Hct 35 L MCV 83.6 MCH 26.7 MCHC 32.0 RDW Std Deviation 47.2 H RDW Coeff of Leland 15.6 H Plt Count 508 H MPV 9.1 L Immature Gran % (Auto) 0.3 Neut % (Auto) 50.5 Lymph % (Auto) 35.2 [place] % (Auto) 10.8 Eos % (Auto) 2.6 Baso % (Auto) 0.6 Neut # (Auto) 4.53 Lymph # (Auto) 3.15 [place] # (Auto) 0.97 H Eos # (Auto) 0.23 Baso # (Auto) 0.05 Immature Gran # (Auto) 0.03 POC Sodium 140 Sodium 137 POC Potassium 4.4 Potassium 4.1 POC Chloride 99 L Chloride 101 Carbon Dioxide 31 POC Total CO2 27 Anion Gap 5 POC Anion Gap 19.0 POC BUN 22 H BUN 21 Creatinine 0.98 POC Creatinine 1.1 Est Cr Clr Drug Dosing 77.7 eGFR 69.45 BUN/Creatinine Ratio 21.4 H Glucose 100 H POC Glucose (other) 100 H Calcium 9.4 POC Ioniz Calcium Tyson 1.22 Total Bilirubin 0.4 AST 15 ALT 10 Alkaline Phosphatase 57 Troponin I High Sens < 2.3 Total Protein 7.1 Albumin 4.2 Globulin 2.9 Albumin/Globulin Ratio 1.4 Lipase 32 Diagnostic Findings Abdomen/Pelvis CT 09/02/24 17:47 EXAM: CT abd pelvis IV con only CLINICAL HISTORY: mid epigastric abd pain TECHNIQUE: CT of the abdomen and pelvis was performed with contrast, with the following protocol: axial images with, and reconstructed coronal and sagittal images. One of the following dose reduction techniques was utilized for this exam: Automated exposure control, adjustment of the mA and/or kV according to patient size, and use of iterative reconstruction. COMPARISON: Comparison is made with previous imaging studies dated 07/03/2019. FINDINGS: Abdomen: Anterior abdominal wall subcutaneous complicated cystic lesion with thick smooth enhancing wall measuring 43x36 mm with mild regional stranding of fat planes Liver: Normal in size, shape, and density. Hypodense focal lesion seen at segment III (left hepatic lobe), measuring 14x12 mm with no contrast enhancement Hepatic vasculature and biliary ducts are unremarkable. Gallbladder and Biliary System: Not visualized The common bile duct is normal in caliber without dilation. Pancreas: Pancreatic head are visualized and appear normal in size and density. body, and tail not proper visualized. No pancreatic masses or calcifications were noted. The pancreatic duct is not dilated. Spleen: Not visualized Appendix: not proper visualized Kidneys and Adrenal Glands: Both kidneys are normal in size, shape, and position. Cortical thickness is within normal limits. No renal calculi or hydronephrosis. Adrenal glands are unremarkable with no evidence of masses or hyperplasia. small right supra renal nodule measuring 4 mm Pelvis: Urinary Bladder: Normal in contour and wall thickness. No intraluminal lesions identified. Uterus: Normal in size and contour. IUD in place No masses or abnormal thickening. Ovaries: Not well visualized, but no gross abnormalities noted. Vagina: Normal in contour and wall thickness. Cervix: No evidence of mass or abnormal thickening. Peritoneal and Retroperitoneal Structures: No free fluid or abnormal fluid collections were identified within the abdomen or pelvis. No lymphadenopathy was noted. Bowel: The visualized bowel loops are normal in caliber and appearance. No evidence of bowel obstruction or wall thickening. Regressive course of the previously seen anterior abdominal wall hernia Bones and Soft Tissues: Pelvic bones and soft tissues are unremarkable. No fractures or abnormal masses were identified. IMPRESSION: 1. Anterior abdominal wall subcutaneous complicated cystic lesion, as described, likely a 4x3.5 cm abscess, new. 2. Small left hepatic lobe focal lesion, likely cyst, stable. 3. Small right suprarenal nodule likely adenoma, new. 4. Anterior abdominal wall hernia, not appear in the current study. Electronically signed by Cesar Abernathy 09-02-2024 8:08 PM Chest CTA 09/02/24 17:47 EXAM: CT angio chest PE protocol CLINICAL HISTORY: PE cp and sob TECHNIQUE: CT angiography of the chest was performed with and without intravenous contrast with the following protocol: axial images with, reconstructed coronal and sagittal images. Non-contrast images were initially acquired, followed by contrast-enhanced images in arterial and venous phases. Intravenous contrast was administered using automated injection techniques. Bolus tracking was employed to optimize arterial phase imaging. One of these 3D techniques was utilized: Maximum Intensity Pixel (MIP), 3D Reconstructed Images, Volume Rendered Images, Surface Shaded Rendering. One of the following dose reduction techniques was utilized for this exam: Automated exposure control, adjustment of the mA and/or kV according to patient size, and use of iterative reconstruction. COMPARISON: x-ray dated 07/17/2024 was reviwed. FINDINGS: Aorta and Great Vessels: Ascending Aorta: Normal in caliber, no aneurysm, dissection, or significant atherosclerosis. Aortic Arch: Normal in caliber, no aneurysm, dissection, or significant atherosclerosis. Descending Aorta: Normal in caliber, no aneurysm, dissection, or significant atherosclerosis. Pulmonary Arteries: The main pulmonary artery and its branches are patent. No evidence of pulmonary embolism or significant stenosis. Heart: Mild cardiomegaly Minimal pericardial effusion Lungs and Pleura: Irregular nodular pleural thickening noted at the left upper lung lobe with a mildly enhancing pleural-based lesion noted at the apical segment of the left lower lung lobe measuring 17x 36 mm with foci of calcifications inside with no associated ribs destructions or erosions. Another similar 1 seen at the apical posterior segment of the left upper lung lobe measuring 15x 20 mm Middle lobe pneumatocele measuring 13 mm Lungs are clear without evidence of consolidation, collapse, or focal lesions. No pleural effusion . Mediastinum: No mediastinal mass or abnormal lymphadenopathy. Normal appearance of the trachea and central bronchi. Hilar Structures: Hilar structures are normal without enlargement. Chest Wall: Two circumscribed right lower inner quadrant breast nodules the largest measures 8x 7 mm, further sonography is advised Vascular Structures: Superior Vena Cava: Patent without evidence of stenosis or thrombus. Inferior Vena Cava: Patent without evidence of stenosis or thrombus. Bones and Soft Tissues: No fractures, lytic, or blastic lesions of the visualized bony structures. Soft tissues are unremarkable. Spine degenerative changes with osteophytes. IMPRESSION: 1. The study is negative for pulmonary embolism. 2. Irregular nodular pleural thickening noted at the left upper lung lobe with two pleural based masses as described above with the largest of them seen at the apical segment of the left lower lung lobe measuring 17x 36 mm. Differential diagnosis includes sequelae of prior granulomatous infection and mesothelioma. Clinical correlation and with CT are advised. Findings are not well-appreciated in prior x-ray. 3. Two circumscribed right lower inner quadrant breast nodules , further sonography is advised 4. Mild cardiomegaly with minimal pericardial effusion. New Electronically signed by Cesar Abernathy 09-02-2024 8:08 PM Chest X-Ray 09/02/24 17:47 EXAM: XR chest 1V portable CLINICAL HISTORY: Chest pain, nonspecific. TECHNIQUE: An X-ray image of the chest is obtained in AP projection. COMPARISON: 4.19.2025 study was reviewed and in comparison to 10.18.2019 study. FINDINGS: Pulmonary Parenchyma: Relatively elevated hemidiaphragmatic copula. Left pleural thickening with blunted costophrenic angle. Lungs are clear bilaterally. No evidence of consolidation, collapse, or focal opacities. No pulmonary nodules are identified. No evidence of pleural effusion. Heart and Mediastinum: Heart size and shape are normal. No mediastinal widening or masses. No hilar or mediastinal lymphadenopathy. Bony Thorax: Bony thorax appears intact without fractures or deformities. Soft Tissues: Soft tissues overlying the chest wall are unremarkable. IMPRESSION: Progression of the pleural thickening in comparison to 2019 study. Electronically signed by Cesar Abernathy 09-02-2024 8:51 PM Medications Administered 500 mL NSS Ondansetron 4 mg IV Hydromorphone 0.25 mg IV ECG Additional Comments: NSR 66 bpm, MI 148, QRS 82, QT/QTc 406/425, PRT 49/4/53 Code Status & VTE Plan Code Status Full VTE Prophylaxis Plan VTE Prophylaxis will be ordered: Yes Supervising Physician Co-Signing Physician Notes I personally saw and examined the patient. I independently reviewed the labs, EKG, imaging, problem list, medication list, past medical history and family history. I verified all baron points and agree with Damaso Steen PA-C with the following exceptions and/or additions: 54 year old female presents to the ER with abdominal pain, initially more chest pain but now appears over fluid collection area noted on CT. No clear signs this is infected on exam O/E HS RRR, no murmurs, Chest CTAB, Abdomen with central well healed scar and fluid collection palpable over upper abdomen without surrounding erythema A/P Fluid collection / abscess - cover with antibiotics although not clearly infected but with some surrounding fat stranding on CT. Consult general surgery. PG Care Time/CCT Total # of Minutes Spent Total Time Spent with Patient: Total time spent is greater than 50% in coordination of care (as documented) at patient's floor/unit and/or counseling patient: Coding Level of Care Code 55193 INT INP/OBS CARE 3/75MIN Diagnoses Abdominal pain R10.9 Chest pain R07.9 Controlled type 2 diabetes mellitus with complication, without long-term current use of insulin E11.8 Diabetes mellitus buttermaker continuous churn insulin use: without correction use (3) Diabetes mellitus type 2, controlled, with complications Diabetes mellitus buttermaker continuous churn insulin use: without buttermaker continuous churn use Qualified Code(s): E11.8 - Type 2 diabetes mellitus with unspecified complications
[2024-09-02] MEDS: HYDROmorphone INJ 0.5 MG/0.5 ML SYR IV PRN (22:10)
[2024-09-03] MEDS ORDERED: DEXTROSE 50% 50 ML SYRINGE IV PRN (00:04)
[2024-09-03] MEDS ORDERED: MAGNESIUM HYDROXIDE SUSP 30 ML UDC PO PRN (00:04)
[2024-09-03] MEDS ORDERED: CARBOHYDRATES FOR HYPOGLYCEMIA PO PRN (00:04)
[2024-09-03] MEDS ORDERED: PHARMACY GLYCEMIC MGMT CONSULT PRN (00:04)
[2024-09-03] MEDS ORDERED: GLUCAGON FOR INJ 1 MG VIAL SQ PRN (00:04)
[2024-09-03] MEDS ORDERED: NALOXONE HCL 0.4 MG/1 ML VIAL/CARP IV PRN (00:04)
[2024-09-03] MEDS ORDERED: ALUMINUM/MAGNESIUM SUSP 30 ML UDC PO PRN (00:04)
[2024-09-03] MEDS ORDERED: GLUCOSE 40% GEL 15 GM TUBE PO PRN (00:04)
[2024-09-03] MEDS ORDERED: GLUCOSE 10 TAB/TUBE PO PRN (00:04)
[2024-09-03] MEDS: LACTATED RINGER'S 1,000 ML IV SCH (00:20)
[2024-09-03] MEDS: INSULIN ASPART PER UNIT CHARGE SC SCH ×2 (01:30→17:54)
[2024-09-03] MEDS: ACETAMINOPHEN 1,000 MG/100 ML VIAL IV STA (02:11)
[2024-09-03] MEDS: HYDROmorphone INJ 0.5 MG/0.5 ML SYR IV PRN (04:21)
--- NOTE | 2024-09-03 07:11 | Electrocardiogram Report ---
Test Reason : Blood Pressure : */* mmHG Vent. Rate : 66 BPM Atrial Rate : 66 BPM P-R Int : 148 ms QRS Dur : 82 ms QT Int : 406 ms P-R-T Axes : 49 4 53 degrees QTcB Int : 425 ms Normal sinus rhythm Normal ECG When compared with ECG of 11-Sep-2022 08:09, No significant change was found Confirmed by Alessio Vizcarra ([id number]) on 09/03/2024 7:11:20 AM Referred By: REFERRED SELF Confirmed By: Alessio Vizcarra
[2024-09-03 07:29] LABS: Hematocrit (blood only) 32.5 % (37.0-47.0); Hemoglobin 10.6 g/dl (12.0-16.0); Mean Corpuscular Hgb Conc 32.6 g/dL (32.0-36.0); Mean Corpuscular Volume 82.9 fL (80.0-100.0); Mean Platelet Volume 9.3 fL (9.4-12.4); Platelet Count 517 K/uL (130-400); RDW Coefficient of Variation 15.6 % (11.5-14.5); RDW Standard Deviation 47.4 fL (36.4-46.3); Red Blood Count 3.92 M/uL (4.20-5.40)
[2024-09-03] MEDS: ONDANSETRON INJ 2 MG/ML 2 ML VIAL IV PRN (07:46)
[2024-09-03 07:51] LABS: BUN Creatinine Ratio 21.1 (10-20); Calcium 8.7 mg/dl (8.6-10.3); Creatinine Clr Calc Pharmacy 100.3 ml/min; Potassium 4.3 mmol/L (3.5-5.1)
--- NOTE | 2024-09-03 10:01 | Hospitalist Progress Note ---
Date of Service September 03, 2024 Assessment & Plan (1) Abdominal pain: Plan: -CT showing Anterior abdominal wall subcutaneous complicated cystic lesion, as described, likely a 4x3.5 cm abscess, new. -rocephin -NPO -IVF -pain control with dilaudid -General surgery consulted (2) Chest pain: Plan: - Trop < 2.3, pending repeat - EKG NSR without ischemic changes - Lipid panel 03/2024 WNL - Monitor on tele - Continue home omeprazole (3) Diabetes mellitus type 2, controlled, with complications: Plan: - BSG ACHS while eating, q6h while npo - Pharm glycemic management consult placed, appreciate assistance - Adjust regimen as needed Plan 54-year-old female PMHx multiple abdominal surgeries, T2DM, hypercholesterolemia, HTN, ankylosing spondylitis, anxiety, GERD, and IBS presenting for new onset epigastric pain starting the day of arrival. ED evaluation reveals no leukocytosis, H&H 10.9/34.1; CMP with BUN/creatinine ratio 21.4, glucose 100; troponin <2.3, pending repeat; lipase 32; CXR progression of pleural thickening in comparison to the 2019 study; chest CTA negative for PE, irregular nodule pleural thickening noted in the CHARLY with 2 pleural-based masses, 2 circumcised right lower inner quadrant breast nodules, mild cardiomegaly and minimal pericardial effusion; CTAP anterior abdominal wall subcu complicated cystic lesion (likely 4 x 3.5 cm abscess), small left hepatic lobe focal lesion, small right suprarenal nodule likely adenoma, anterior abdominal wall hernia not apparent current study; EKG NSR 66 bpm without ischemic changes.; Provided with 500 mL NSS, ondansetron 4 mg IV, hydromorphone 0.25 mg, and ceftriaxone 2 g IV in ED. Pt had CT that showed 4x 3.5 cm abdominal wall abscess, will need surgery follow up for possible percutaneous drainage vs surgery, on Rocephin. Admission and Anticipated Discharge Date Admission Date: September 02, 2024 Subjective No events overnight, pt resting comfortably in bed. Has not yet seen surgery. Review of Systems Review of Systems: mid epigastric abdominal pain CONST: Negative for fever, body aches and chills. HENT: Negative for neck pain/stiffness, headache, congestion, sore throat, swelling. EYES: Negative for discharge/pain or vision changes. RESP: Negative for cough/hemoptysis and shortness of breath. CV: Negative chest pain, difficulty breathing, palpitations. ABD: Negative pain, nausea, vomiting. : Negative increase frequency, dysuria, blood in urine or stool. MUSC: Negative for muscle aches, edema. SKIN: Negative rash, lesions/sores. NEURO: Negative headache, dizziness, weakness. Physical Exam Physical Exam: GENERAL APPEARANCE NAD, activity normal for age, well developed/ well nourished, no cyanosis, pallor, or diaphoresis. EYES lids/conjunctiva normal. EARS/NOSE/THROAT Mucous membranes moist, nares normal, lips/teeth normal uvula midline without oral pharyngeal erythema, exudate or swelling TMs normal bilaterally. No lymphangitis/lymphedema. HEAD/NECK normocephalic atraumatic, no facial trauma, neck is supple. RESPIRATORY respiratory effort normal, speaks in full sentences, no tripod position, no accessory muscle use. Lungs clear to auscultation without rhonchi, wheezes, rales CARDIAC Regular rate and rhythm, no edema. ABDOMINAL Soft, ND/NT. No evidence of fluid wave. No pulsatile masses on exam, rebound tenderness, Peck sign or pain over Mcburney's point. MUSCLES/EXTREMITIES No abnormal range of motion, no swelling. SKIN Warm, pink and dry. No rashes, dermatoses, petechiae or lesions. NEUROLOGICAL Speech is clear and appropriate. Normal level of consciousness. Gait and coordination are normal. 5/5 strength in all extremities. PSYCH Normal mood and affect. Judgement/competence is appropriate Results & Data Results & Data Vital Signs (Past 12 Hours) Vital Signs Temp Pulse Pulse Resp BP Pulse Ox O2 Del Method 09/03/24 07:34 36.9 C 67 18 148/92 H 96 Room Air 09/03/24 03:35 36.7 C 68 18 119/74 100 Room Air 09/02/24 23:26 65 09/02/24 23:25 36.7 C 62 16 147/94 H 100 Room Air PG Care Time/CCT Total # of Minutes Spent Total Time Spent with Patient: Total time spent is greater than 50% in coordination of care (as documented) at patient's floor/unit and/or counseling patient: Coding Level of Care Code 40434 SUB INP/OBS CARE 2/35MIN Diagnoses Abdominal pain R10.9 Chest pain R07.9 Controlled type 2 diabetes mellitus with complication, without long-term current use of insulin E11.8 Diabetes mellitus parts counterman insulin use: without assisted use (3) Diabetes mellitus type 2, controlled, with complications Diabetes mellitus parts counterman insulin use: without parts counterman use Qualified Code(s): E11.8 - Type 2 diabetes mellitus with unspecified complications
[2024-09-03] MEDS: busPIRone 5 MG TAB PO SCH (11:25)
[2024-09-03] MEDS: SERTRALINE HCL 50 MG TABLET PO SCH (11:25)
[2024-09-03] MEDS: POLYETHYLENE (MIRALAX) 17 GM PACK PO SCH (11:25)
[2024-09-03] MEDS: lisinopril 20 MG TAB PO SCH (11:25)
[2024-09-03] MEDS: PANTOprazole 40 MG TAB PO SCH (11:25)
--- NOTE | 2024-09-03 12:08 | Surgery Consultation ---
Date of Consultation September 03, 2024 Assessment & Plan (1) Abdominal wall mass: complex chronic fluid collection no signs of infection would not recommend drainage discharge per medical team will sign off History of Present Illness Attending Physician: Abdi Campbell MD History of Present Illness This is a 54YO seen in ED for chest pain. She also had some periumbilical pain around a chronic complex fluid collection in midline scar. She denies any fever or chills. Significant previous abdominal surgeries include a Whipple splenectomy, cholecystectomy, and close to 5 hernia surgeries. She also had recent excision of suture granuloma. Allergies Allergy/AdvReac Type Severity Reaction Status Date / Time pineapple Allergy Severe Anaphylaxis Verified 09/02/24 19:25 Penicillins Allergy Intermediate Hives (as Verified 09/02/24 19:25 baby) eugenol Allergy Mild Rash Verified 09/02/24 19:25 mold Allergy Mild Allergy Verified 09/02/24: tested > sinus issues tramadol AdvReac Intermediate Slurred Verified 09/02/24 19:25 speech, nauseous, dizziness morphine AdvReac Mild Itching Verified 09/02/24 19:25 Sulfa (Sulfonamide AdvReac Mild Nausea Verified 09/02/24 19:25 Antibiotics) Home Medications Medication Instructions Recorded Confirmed Type ascorbic acid (vitamin C) 1,000 mg 2 g PO QAM 11/06/19 09/02/24 History tablet (Vitamin C) aspirin 81 mg tablet,delayed 81 mg PO PM 11/06/19 09/02/24 History release cholecalciferol (vitamin D3) 125 250 mcg PO QAM 11/06/19 09/02/24 History mcg (5,000 unit) tablet (Vitamin D3) fluticasone propionate 50 2 spray intranasal HS 11/06/19 09/02/24 History mcg/actuation nasal spray,suspension (Flonase Allergy Relief) levonorgestrel 21 mcg/24 hr (up to 20 mcg intrauterine CONTINOUS 11/06/19 History 8 years) 52 mg intrauterine device (Mirena) lisinopril 20 mg tablet 20 mg PO QAM 11/06/19 09/02/24 History metformin 500 mg tablet 500 mg PO BID 11/06/19 09/02/24 History mv-min-vit C-ascorb 1.7 mg PO QAM 11/06/19 09/02/24 History Wz-Pex-Kty-herb #124 333 mg-1.7 mg chewable tablet (Airborne (ascorbate sodium)) omeprazole 40 mg capsule,delayed 40 mg PO QAM 11/06/19 09/02/24 History release rosuvastatin 10 mg tablet 10 mg PO QPM 11/06/19 09/02/24 History buspirone 5 mg tablet 5 mg PO BID 09/02/20 09/02/24 History zolpidem 10 mg tablet (Ambien) 10 mg PO HS PRN Sleep 09/02/20 09/02/24 History multivitamin (Multiple Vitamins 1 tab PO QAM 07/25/21 09/02/24 History tablet) biotin 10,000 mcg chewable tablet 10,000 mcg PO QAM 09/22/22 09/02/24 History coQ10 (ubiquinol) 100 mg capsule 100 mg PO QAM 09/22/22 09/02/24 History cyanocobalamin (vitamin B-12) 1,000 mcg PO QAM 09/22/22 09/02/24 History 1,000 mcg capsule diclofenac potassium 50 mg tablet 50 mg PO BID 09/22/22 09/02/24 History glucosamin 375 mg-chond 300 1 cap PO BID 09/22/22 09/02/24 History mg-collagen 50 mg-hyaluronic acid 2 mg cap pyridoxine (vitamin B6) 50 mg 100 mg PO QAM 09/22/22 09/02/24 History capsule (Vitamin B-6) secukinumab 150 mg/mL subcutaneous 150 mg subcut MONTHLY 09/22/22 09/02/24 History syringe (Cosentyx) Acv Gummies 1 tab PO DAILY 09/02/24 09/02/24 History Moringa 1,000 mg PO BID 09/02/24 09/02/24 History Turmeric/Curcumin 1 tab PO TID 09/02/24 09/02/24 History calcium carbonate (Calcium 600) 600 mg PO DAILY 09/02/24 09/02/24 History docusate sodium 100 mg capsule 100 mg PO DAILY 09/02/24 09/02/24 History dulaglutide 0.75 mg/0.5 mL 0.75 mg subcut WK 09/02/24 09/02/24 History subcutaneous pen injector (Trulicity) elderberry fruit 350 mg capsule 1,050 mg PO HS 09/02/24 09/02/24 History fexofenadine 180 mg tablet 180 mg PO DAILY 09/02/24 09/02/24 History milk thistle 500 mg capsule 1,000 mg PO HS 09/02/24 09/02/24 History omega-3 fatty acids 1,000 mg 3,000 mg PO DAILY 09/02/24 09/02/24 History capsule polyethylene glycol 3350 17 17 g PO BID 09/02/24 09/02/24 History gram/dose oral powder (Miralax) sertraline 50 mg tablet 50 mg PO QAM 09/02/24 09/02/24 History zinc gluconate 50 mg tablet 50 mg PO DAILY 09/02/24 09/02/24 History Patient History Medical History Diabetic peripheral 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 Painful scar Contact dermatitis Surgical wound, non healing Postoperative seroma Ventral hernia Incisional hernia Vomiting and diarrhea History of COVID-02 NOVEMBER 2021>RESOLVED Morbid obesity Stress incontinence GERD (gastroesophageal reflux disease) IBS (irritable bowel syndrome) Diabetes mellitus, type 2 Pancreatic tumor Benign>HX Anxiety History of migraine headaches IUD (intrauterine device) in place Mirena inserted in OR 04/2021 Surgical History Status post hernia repair H/O abdominal surgery (10/01/22) Wound Exploration with Excision of Suture Granuloma with Placement of Antibiotic Beads(Not Applicable) - Sarbjit Andrade, DO History of tooth extraction History of gynecologic surgery MIRENA REMOVAL AND INSERTION UNDER ANESTHESIA H/O ventral hernia repair Open Ventral Hernia Repair with Mesh (11/23/19): Grade 3 view, MAC#3, ETT 7.5 at [facility] (weight at time 109kg) H/O breast biopsy RT > benign History of esophagogastroduodenoscopy (EGD) History of lung surgery Left VATS r/t "fluid build up" (2008) 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 History of wisdom tooth extraction History of dilatation and curettage History of cholecystectomy Family History Grandmother Hypertension Grandfather Hypertension Father Hypertension Grandmother (Maternal) Diabetes Bipolar disorder Hypothyroidism Grandfather (Maternal) Heart disease Grandfather (Paternal) Diabetes Heart disease Other No family history of adverse response to anesthesia Denies family history of Ovarian cancer Breast cancer Colorectal cancer Social History Smoking Status: Never smoker Second Hand Exposure: Yes ( A CHILD); Do You Dip or Chew Tobacco: No; Hx Alcohol Use: No Hx Substance Use: No Preferred Language: Swedish Communication Ability: Effective Visual Impairment: No Limitations Hearing Ability: Normal Ice Cream Chef Required: No Beliefs That Will Affect Care: None marital status: Single Current Living Situation: Parent Current Living Situation Comment: lives with mother and father at home current occupational status: employed 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 Other Information That Helps Us Care for You: No Feels Safe at Home: Yes Safety Concerns: Feels Safe At This Time Assistive Devices: Brace/Splint/Immobilizer and Glasses Assistive Devices Comment: right wrist brace for carpal tunnel Review of Systems Constitutional: no fever, no chills and no anorexia Eyes: no problem reported Ear, Nose, Mouth, Throat: no problem reported Respiratory: + dyspnea; no cough Cardiovascular: + chest pain and + radiating jaw, neck o r arm pain Gastrointestinal: no abdominal pain, no nausea, no vomiting and no change in bowel habits Genitourinary: no dysuria Neurologic: no localized weakness and no generalized weakness Psychiatric: no behavioral changes Hematologic / Lymphatic: no easy bleeding and no easy bruising Physical Exam Constitutional: WD/WN, vitals as above Eyes: no scleral abnormality ENMT: external ear and nose normal, oropharynx normal Neck: trachea midline Respiratory: normal respiratory effort, lungs clear to auscultation Cardiovascular: RRR, no murmur, no edema Gastrointestinal (Abdomen): Inspection/Auscultation: abdomen normal to inspection and normal bowel sounds; abdomen not distended Percussion/Palpation: abdomen soft; abdomen nontender, no guarding and abdomen not rigid upper midline complex mass, no fluctuance or signs of [id number] Musculoskeletal: Head/Neck/Chest: normocephalic and head atraumatic Skin: no rashes, warm and dry Results & Data Vital Signs (Past 12 Hours) Vital Signs Temp Pulse Resp BP Pulse Ox O2 Del Method 09/03/24 12:02 36.8 C 75 16 145/81 H 96 Room Air 09/03/24 07:34 36.9 C 67 18 148/92 H 96 Room Air 09/03/24 03:35 36.7 C 68 18 119/74 100 Room Air Diagnostic Findings EXAM: CT abd pelvis IV con only CLINICAL HISTORY: mid epigastric abd pain TECHNIQUE: CT of the abdomen and pelvis was performed with contrast, with the following protocol: axial images with, and reconstructed coronal and sagittal images. One of the following dose reduction techniques was utilized for this exam: Automated exposure control, adjustment of the mA and/or kV according to patient size, and use of iterative reconstruction. COMPARISON: Comparison is made with previous imaging studies dated 07/03/2019. FINDINGS: Abdomen: Anterior abdominal wall subcutaneous complicated cystic lesion with thick smooth enhancing wall measuring 43x36 mm with mild regional stranding of fat planes Liver: Normal in size, shape, and density. Hypodense focal lesion seen at segment III (left hepatic lobe), measuring 14x12 mm with no contrast enhancement Hepatic vasculature and biliary ducts are unremarkable. Gallbladder and Biliary System: Not visualized The common bile duct is normal in caliber without dilation. Pancreas: Pancreatic head are visualized and appear normal in size and density. body, and tail not proper visualized. No pancreatic masses or calcifications were noted. The pancreatic duct is not dilated. Spleen: Not visualized Appendix: not proper visualized Kidneys and Adrenal Glands: Both kidneys are normal in size, shape, and position. Cortical thickness is within normal limits. No renal calculi or hydronephrosis. Adrenal glands are unremarkable with no evidence of masses or hyperplasia. small right supra renal nodule measuring 4 mm Pelvis: Urinary Bladder: Normal in contour and wall thickness. No intraluminal lesions identified. Uterus: Normal in size and contour. IUD in place No masses or abnormal thickening. Ovaries: Not well visualized, but no gross abnormalities noted. Vagina: Normal in contour and wall thickness. Cervix: No evidence of mass or abnormal thickening. Peritoneal and Retroperitoneal Structures: No free fluid or abnormal fluid collections were identified within the abdomen or pelvis. No lymphadenopathy was noted. Bowel: The visualized bowel loops are normal in caliber and appearance. No evidence of bowel obstruction or wall thickening. Regressive course of the previously seen anterior abdominal wall hernia Bones and Soft Tissues: Pelvic bones and soft tissues are unremarkable. No fractures or abnormal masses were identified. IMPRESSION: 1. Anterior abdominal wall subcutaneous complicated cystic lesion, as described, likely a 4x3.5 cm abscess, new. 2. Small left hepatic lobe focal lesion, likely cyst, stable. 3. Small right suprarenal nodule likely adenoma, new. 4. Anterior abdominal wall hernia, not appear in the current study.
--- NOTE | 2024-09-03 14:48 | Pharmacy Report ---
Pharmacy Glycemic Short Note 2 - Date of Service September 03, 2024 - Glycemic Short BSG Results (Last 24 hours): 09/02/24 09/02/24 09/03/24 17:45 17:49 01:22 Glucose 100 H POC Glucose 97 POC Glucose (other) 100 H 09/03/24 09/03/24 09/03/24 06:31 07:04 12:16 Glucose 86 POC Glucose 82 82 POC Glucose (other) OUTPATIENT ANTIDIABETIC REGIMEN: * Trulicity 0.75mg QTU * metformin ER 500mg PO BID * HbA1c 5.6% (03/17/24), pending (09/04/24) ASSESSMENT: * Elza is a 54 year old female admitted with abdominal pain/chest pain with a history of type 2 diabetes mellitus. Pharmacy has been consulted to assist with glycemic management while inpatient. * All BSGs below goal range at this time (was NPO), NovoLog at a weight based stress of 1.5, hold on basal for now PLAN FOR INPATIENT GLYCEMIC CONTROL: * Hold outpatient diabetes medications * Basal insulin * Hold for now * Bolus insulin * NovoLog per scale ACHS or Q6hrs while NPO * Goal Range: Low 110 mg/dL - High 140 mg/dL * Correction Factor: 30 mg/dL/unit * Nutritional / Prandial insulin per carb ratio of 1 unit per 10 grams CHO consumed
[2024-09-03] MEDS: ACETAMINOPHEN 325 MG TAB PO PRN (18:00)
[2024-09-03] MEDS: cefTRIAXone SODIUM 2,000 MG/50 ML BAG IV SCH (20:42)
[2024-09-03] MEDS: ROSUVASTATIN CALCIUM 10 MG TAB PO SCH (20:43)
[2024-09-03] MEDS: FLUTICASONE PROPIONATE NA SPR 16 GM BTL SCH (22:33)
[2024-09-03] MEDS: ZOLPIDEM TARTRATE 5 MG TAB PO PRN (22:43)
--- NOTE | 2024-09-04 08:17 | Hospitalist Progress Note ---
Date of Service September 04, 2024 Assessment & Plan (1) Abdominal pain: Plan: 54yo female w hx significant for multiple abdominal surgeries (pre-cancerous Whipple/splenectomy, cathy, ~5 hernia surgeries, prior excision of suture granuloma) presented for new onset epigastric pain on Wednesday with nausea/pain radiating to R jaw with reports Tums with some alleviation but still felt nauseated. PMHx DM II, HTN, HLD, GERD, IBS, Anxiety. CTA negative for PE CTAP noting 4x3.5 anterior abdominal wall subcutaneous complicated cystic lesion, NEW NPO, surgery consulted and pain control ordered but surgery reporting ok for dc/no intervention. -IR reporting too small for drainage and rec to reach back to surgery. Ceftriaxone IV, added Dapto for MRSA coverage for now. Statin placed on hold Dr Bridges has been notified, will eval. Continues on abx as outlined and ?possible intervention for I&D. Pain control continued and ibuprofen x 1 ordered as well as bowel regimen as is constipated now as well and suspect could be contributing. Labs added for today, possible NPO at midnight for I&D pending eval by surgery today (2) Chest pain: Plan: Initially reports concerning for OH however troponin negative x2 and EKG w/o ischemic changes. CTA negative for PE and continues on PPI. No further CP but does still have epigastric discomfort in region of scar/fluid collection. Lipase 32 on admission. Notable, while CTA negative for PE, does note 2 irregular nodular pleural thickening CHARLY w/ 2 pleural based masses at apical segment of LLL measuring [id number] and ddx could include sequelae of prior granulomatous infection vs mesothelioma and consider touching base w/ pulm pending eval for above if not able to get I&D/path (prior path does note "suture granuloma" w/ dense scar around abscess cavity --> further testing pending given hx Whipple, consider CT angio if needed for abd pain Tele w/ NSR, electrolytes stable. Can downgrade off tele this afternoon unless issues. (3) Diabetes mellitus type 2, controlled, with complications: Plan: A1c 6.0, well controlled Pharmacy managing while inpatient (on trulicity, metformin at baseline) and BSGs have been acceptable Plan #Anemia-hemoglobin low at 11.2, MCV borderline microcytic at 82.9, platelets elevated at 501. Doubt menorrhagia as she has IUD in place. Ferritin low at 26 - Given IV Venofer x 1 - Consider further IV iron while here and follow CBC - Needs GI outpatient workup with EGD and colonoscopy #HTN-no acute issues - Continue lisinopril #HLD-no acute issues - Holding rosuvastatin while on daptomycin #Depression/anxiety-no acute issues - Continue sertraline, BuSpar #GERD-no acute issues - Continue pantoprazole #Right sided breast nodules-seen on CT chest. Recent mammogram 06/2024 negative but needs breast ultrasound as an outpatient Dispo: continued inpatient stay, to be eval by Dr Bridges for possible I&D fluid collection. +bowel regimen Admission and Anticipated Discharge Date Admission Date: September 02, 2024 Supervising Physician Co-Signing Physician Notes PA Supervision Note: I did not personally see or examine the patient today, but I verified all baron points of DAVID Pond's assessment and plan with the following exceptions/additions: Additional assessment/plan noted as above in plan section Subjective Patient evaluated this morning, initially walking the halls. Having pain to abdomen and headache. Typically on diclofenac but not taking for possible surgery as "blood thinner" per patient. Discussed ibuprofen x 1. She notes was seen by surgeon yesterday but was in room for ~30 seconds and reports they didn't really talk to her much and that she messaged Dr Andrade this morning. Per message from Dr garcia, no intervention or follow up required but patient has needed in the past and does have fluid collection. Discussed I messaged Dr Bridges for review and eval but continues abx. No BM since admission, pain initially started on Wednesday when she presented. Dr Bridges replied that she will review/see patient. Questions/concerns addressed at this time. Physical Exam 2 Physical Exam: General: 54yo female ambulating the halls initially, NAD but reports mild headache Resp: even/unlabored, no wheezing/rales, on room air CV: NSR on telemetry, rates 6-90s, no significant m/r/g, no pitting edema GI: +BS but slightly slow, slight distension, midline incisions w/ keloid type appearance to upper portion, slightly red, no active drainage but does have some induration, +tenderness, no guarding/rebound no wetzel MSK/Neuro: ambulating halls without difficulty, moves all extremities, non focal, not confused Psych: AOx3, cooperative with exam Results & Data Results & Data Vital Signs (Past 12 Hours) Vital Signs Temp Pulse Pulse Resp BP Pulse Ox O2 Del Method 09/04/24 07:36 36.9 C 70 20 145/87 H 94 Room Air 09/04/24 05:46 72 09/04/24 03:18 36.9 C 77 20 146/77 H 92 Room Air 09/04/24 00:08 37.0 C 80 20 117/69 95 Room Air 09/03/24 21:45 77 Laboratory Results 09/03/24 07:04 09/03/24 07:04 A1c 6.0 Diagnostic Findings Abdomen/Pelvis CT 09/02/24 17:47 EXAM: CT abd pelvis IV con only CLINICAL HISTORY: mid epigastric abd pain TECHNIQUE: CT of the abdomen and pelvis was performed with contrast, with the following protocol: axial images with, and reconstructed coronal and sagittal images. One of the following dose reduction techniques was utilized for this exam: Automated exposure control, adjustment of the mA and/or kV according to patient size, and use of iterative reconstruction. COMPARISON: Comparison is made with previous imaging studies dated 07/03/2019. FINDINGS: Abdomen: Anterior abdominal wall subcutaneous complicated cystic lesion with thick smooth enhancing wall measuring 43x36 mm with mild regional stranding of fat planes Liver: Normal in size, shape, and density. Hypodense focal lesion seen at segment III (left hepatic lobe), measuring 14x12 mm with no contrast enhancement Hepatic vasculature and biliary ducts are unremarkable. Gallbladder and Biliary System: Not visualized The common bile duct is normal in caliber without dilation. Pancreas: Pancreatic head are visualized and appear normal in size and density. body, and tail not proper visualized. No pancreatic masses or calcifications were noted. The pancreatic duct is not dilated. Spleen: Not visualized Appendix: not proper visualized Kidneys and Adrenal Glands: Both kidneys are normal in size, shape, and position. Cortical thickness is within normal limits. No renal calculi or hydronephrosis. Adrenal glands are unremarkable with no evidence of masses or hyperplasia. small right supra renal nodule measuring 4 mm Pelvis: Urinary Bladder: Normal in contour and wall thickness. No intraluminal lesions identified. Uterus: Normal in size and contour. IUD in place No masses or abnormal thickening. Ovaries: Not well visualized, but no gross abnormalities noted. Vagina: Normal in contour and wall thickness. Cervix: No evidence of mass or abnormal thickening. Peritoneal and Retroperitoneal Structures: No free fluid or abnormal fluid collections were identified within the abdomen or pelvis. No lymphadenopathy was noted. Bowel: The visualized bowel loops are normal in caliber and appearance. No evidence of bowel obstruction or wall thickening. Regressive course of the previously seen anterior abdominal wall hernia Bones and Soft Tissues: Pelvic bones and soft tissues are unremarkable. No fractures or abnormal masses were identified. IMPRESSION: 1. Anterior abdominal wall subcutaneous complicated cystic lesion, as described, likely a 4x3.5 cm abscess, new. 2. Small left hepatic lobe focal lesion, likely cyst, stable. 3. Small right suprarenal nodule likely adenoma, new. 4. Anterior abdominal wall hernia, not appear in the current study. Electronically signed by Cesar Abernathy 09-02-2024 8:08 PM Chest CTA 09/02/24 17:47 EXAM: CT angio chest PE protocol CLINICAL HISTORY: PE cp and sob TECHNIQUE: CT angiography of the chest was performed with and without intravenous contrast with the following protocol: axial images with, reconstructed coronal and sagittal images. Non-contrast images were initially acquired, followed by contrast-enhanced images in arterial and venous phases. Intravenous contrast was administered using automated injection techniques. Bolus tracking was employed to optimize arterial phase imaging. One of these 3D techniques was utilized: Maximum Intensity Pixel (MIP), 3D Reconstructed Images, Volume Rendered Images, Surface Shaded Rendering. One of the following dose reduction techniques was utilized for this exam: Automated exposure control, adjustment of the mA and/or kV according to patient size, and use of iterative reconstruction. COMPARISON: x-ray dated 07/17/2024 was reviwed. FINDINGS: Aorta and Great Vessels: Ascending Aorta: Normal in caliber, no aneurysm, dissection, or significant atherosclerosis. Aortic Arch: Normal in caliber, no aneurysm, dissection, or significant atherosclerosis. Descending Aorta: Normal in caliber, no aneurysm, dissection, or significant atherosclerosis. Pulmonary Arteries: The main pulmonary artery and its branches are patent. No evidence of pulmonary embolism or significant stenosis. Heart: Mild cardiomegaly Minimal pericardial effusion Lungs and Pleura: Irregular nodular pleural thickening noted at the left upper lung lobe with a mildly enhancing pleural-based lesion noted at the apical segment of the left lower lung lobe measuring 17x 36 mm with foci of calcifications inside with no associated ribs destructions or erosions. Another similar 1 seen at the apical posterior segment of the left upper lung lobe measuring 15x 20 mm Middle lobe pneumatocele measuring 13 mm Lungs are clear without evidence of consolidation, collapse, or focal lesions. No pleural effusion . Mediastinum: No mediastinal mass or abnormal lymphadenopathy. Normal appearance of the trachea and central bronchi. Hilar Structures: Hilar structures are normal without enlargement. Chest Wall: Two circumscribed right lower inner quadrant breast nodules the largest measures 8x 7 mm, further sonography is advised Vascular Structures: Superior Vena Cava: Patent without evidence of stenosis or thrombus. Inferior Vena Cava: Patent without evidence of stenosis or thrombus. Bones and Soft Tissues: No fractures, lytic, or blastic lesions of the visualized bony structures. Soft tissues are unremarkable. Spine degenerative changes with osteophytes. IMPRESSION: 1. The study is negative for pulmonary embolism. 2. Irregular nodular pleural thickening noted at the left upper lung lobe with two pleural based masses as described above with the largest of them seen at the apical segment of the left lower lung lobe measuring 17x 36 mm. Differential diagnosis includes sequelae of prior granulomatous infection and mesothelioma. Clinical correlation and with CT are advised. Findings are not well-appreciated in prior x-ray. 3. Two circumscribed right lower inner quadrant breast nodules , further sonography is advised 4. Mild cardiomegaly with minimal pericardial effusion. New Electronically signed by Cesar Abernathy 09-02-2024 8:08 PM Chest X-Ray 09/02/24 17:47 EXAM: XR chest 1V portable CLINICAL HISTORY: Chest pain, nonspecific. TECHNIQUE: An X-ray image of the chest is obtained in AP projection. COMPARISON: 09.02.2024 study was reviewed and in comparison to 10.18.2019 study. FINDINGS: Pulmonary Parenchyma: Relatively elevated hemidiaphragmatic copula. Left pleural thickening with blunted costophrenic angle. Lungs are clear bilaterally. No evidence of consolidation, collapse, or focal opacities. No pulmonary nodules are identified. No evidence of pleural effusion. Heart and Mediastinum: Heart size and shape are normal. No mediastinal widening or masses. No hilar or mediastinal lymphadenopathy. Bony Thorax: Bony thorax appears intact without fractures or deformities. Soft Tissues: Soft tissues overlying the chest wall are unremarkable. IMPRESSION: Progression of the pleural thickening in comparison to 2019 study. 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
[2024-09-04 09:19] LABS: Estimated Average Glucose 126 mg/dl
[2024-09-04] MEDS: IBUPROFEN 600 MG TAB PO STA (10:37)
[2024-09-04 11:00] LABS: Hematocrit (blood only) 34.3 % (37.0-47.0); Hemoglobin 11.2 g/dl (12.0-16.0); Mean Corpuscular Hemoglobin 27.1 pg (25.0-34.0); Mean Corpuscular Hgb Conc 32.7 g/dL (32.0-36.0); Mean Corpuscular Volume 82.9 fL (80.0-100.0); Platelet Count 501 K/uL (130-400); RDW Coefficient of Variation 15.1 % (11.5-14.5); RDW Standard Deviation 46.1 fL (36.4-46.3); Red Blood Count 4.14 M/uL (4.20-5.40)
[2024-09-04] MEDS: DOCUSATE SODIUM 100 MG CAP PO SCH (11:11)
[2024-09-04 11:16] LABS: Calcium 9.1 mg/dl (8.6-10.3); Creatinine Clr Calc Pharmacy 103.6 ml/min; Magnesium 1.7 mg/dl (1.7-2.4); Potassium 3.9 mmol/L (3.5-5.1)
[2024-09-04 11:36] LABS: Ferritin 26.6 ng/ml (8-388)
[2024-09-04] MEDS: IRON SUCROSE 300 MG in SODIUM CHLORIDE 0.9% 250 ML IV ONE (14:35)
[2024-09-04] MEDS: DAPTOmycin 500 MG in SYRINGE 0 ML IV SCH (16:11)
[2024-09-04] MEDS: diphenhydrAMINE 50 MG/ML VIAL IV STA (18:41)
[2024-09-04] MEDS: CETIRIZINE HCL 10 MG TABLET PO SCH (20:43)
[2024-09-04] MEDS: diphenhydrAMINE 50 MG/ML VIAL IV PRN (20:52)
[2024-09-05 07:00] LABS: Basophils # (auto) 0.04 K/uL (0.00-0.20); Basophils % (auto) 0.5 %; Eosinophils % (auto) 2.5 %; Hematocrit (blood only) 32.2 % (37.0-47.0); Hemoglobin 10.3 g/dl (12.0-16.0); Immature Granulocytes # (auto) 0.02 K/uL (0.01-0.20); Immature Granulocytes % (auto) 0.2 %; Lymphocytes # (auto) 2.49 K/uL (1.20-3.40); Mean Corpuscular Hemoglobin 26.5 pg (25.0-34.0); Monocytes % (auto) 13.7 %; Neutrophils # (auto) 4.19 K/uL (1.40-6.50); Neutrophils % (auto) 52.1 %; Platelet Count 486 K/uL (130-400); RDW Coefficient of Variation 15.3 % (11.5-14.5); RDW Standard Deviation 46.3 fL (36.4-46.3); Red Blood Count 3.88 M/uL (4.20-5.40); White Blood Count 8.04 K/ul (4.8-10.8)
[2024-09-05 07:26] LABS: BUN Creatinine Ratio 18.1 (10-20); Calcium 8.9 mg/dl (8.6-10.3); Creatinine Clr Calc Pharmacy 92.3 ml/min; Magnesium 1.9 mg/dl (1.7-2.4); Potassium 4.1 mmol/L (3.5-5.1)
--- NOTE | 2024-09-05 09:05 | Pharmacy Report ---
Pharmacy Glycemic Sign Off Nt - Date of Service September 05, 2024 - Assessment & Plan ASSESSMENT: * Pharmacy was consulted by Tisha Steen PA-C on 09/02/24 for glycemic control and to write orders per [facility] inpatient glycemic control protocol. * Major changes made by pharmacy to antidiabetic regimen include: * titration of Novolog * Patient has been receiving/requiring 5-6 units of insulin per day for adequate glycemic control * BSGs ranging 92-132 mg/dl * Regimen has only required minor adjustments over the past 48hrs to achieve this level of control * Do not anticipate further changes in patient status that would quickly deteriorate glycemic control (i.e. patient to be NPO for upcoming procedure, steroids tapering, starting tube feedings, etc). PLAN FOR INPATIENT GLYCEMIC CONTROL: No changes needed to current regimen. * Continue to hold basal insulin * Continue NovoLog per scale ACHS/Q6hrs while NPO * Goal range = 120-160 mg/dl * CF = 35 mg/dl/unit * CR = 1 unit for ever 12 g CHO consumed * Pharmacy is signing off of glycemic consult and will no longer be making adjustments to inpatient regimen. Please feel free to re-consult if needed. Thank you.
[2024-09-05] MEDS: IBUPROFEN 600 MG TAB PO PRN (09:19)
[2024-09-05] MEDS: DOXYCYCLINE HYCLATE 100 MG in DEXTROSE 5% MINI-B 100 ML IV SCH (10:07)
--- NOTE | 2024-09-05 14:36 | Hospitalist Progress Note ---
Date of Service September 05, 2024 Assessment & Plan (1) Abdominal pain: (2) Diabetes mellitus type 2, controlled, with complications: Plan This pt is a 54yo female w h/o multiple abdominal surgeries (pre-cancerous pancreatic mass with Whipple/splenectomy, cathy, ~5 hernia surgeries, prior excision of suture granuloma), DMII, HTN, HLD, Depression/anxiety, and GERD who p/w acute epigastric pain radiating to R jaw and nausea.Found to have cystic lesion/possible abscess in abdomen under site of previous laparotomy scar. CTA negative for PE #Abscess/cystic mass abdominal wall-CTAP noting 4x3.5 anterior abdominal wall subcutaneous complicated cystic lesion. LFTs, lipase normal. Troponin neg x 2, ECG without ischemic changes, no arrhythmias on tele. No evidence of sepsis. CTA Chest does show 2 irregular nodular pleural thickening CHARLY w/ 2 pleural based m asses at apical segment of LLL measuring [id number] and ddx could include sequelae of prior granulomatous infection vs mesothelioma. Added Dapto on 09/04 and broke out in hives (had also received IV Venofer around same time)-Dapto stopped -continue ceftriaxone, doxycycline for broad spectrum coverage -now s/p IR drainage 09/05--> follow fluid cultures, AFB, cytology -appreciate Gen Surgery consult -needs PULM f/u as outpt for abnormal chest CT #Allergic reaction-broke out in hives on all four extremities after receiving Daptomycin and IV Venofer. No anaphylaxis. Has also been receiving Ceftriaxone x 3 days and IV dilauidid. -stopped Dapto, Venofer -continue IV benadryl prn -increase Zyrtec to 10mg po bid -monitor for improvement #Anemia-hemoglobin low at 10-11.2, MCV borderline microcytic at 82.9, platelets elevated at 501 but now trending doward. Doubt menorrhagia as she has IUD in place. Ferritin low at 26. Plts high from inflammation/infection -Given IV Venofer x 1 and then broke out in rash -follow CBC -Needs GI outpatient workup with EGD and colonoscopy #DMII- A1c 6.0, well controlled on trulicity, metformin at baseline and BSGs have been acceptable -continue novolog SSI #HTN-no acute issues - Continue lisinopril #HLD-no acute issues - Holding rosuvastatin while on daptomycin #Depression/anxiety-no acute issues - Continue sertraline, BuSpar #GERD-no acute issues - Continue pantoprazole #Right sided breast nodules-seen on CT chest. Recent mammogram 06/2024 negative but needs breast ultrasound as an outpatient Dispo: continued inpatient stay, can downgrade from tele Admission and Anticipated Discharge Date Admission Date: September 02, 2024 Results & Data Results & Data Vital Signs (Past 12 Hours) Vital Signs Temp Pulse Pulse Resp BP Pulse Ox O2 Del Method 09/05/24 07:38 36.8 C 68 18 112/71 96 Room Air 09/05/24 05:41 66 09/05/24 04:00 36.7 C 73 18 126/79 93 Room Air PG Care Time/CCT Total # of Minutes Spent Total Time Spent with Patient: Total time spent is greater than 50% in coordination of care (as documented) at patient's floor/unit and/or counseling patient: Coding Level of Care Code 60001 SUB INP/OBS CARE 3/50MIN Diagnoses Abdominal pain R10.9 Controlled type 2 diabetes mellitus with complication, without long-term current use of insulin E11.8 Diabetes mellitus terminal makeup operator insulin use: without care home use (2) Diabetes mellitus type 2, controlled, with complications Diabetes mellitus care home insulin use: without care home use Qualified Code(s): E11.8 - Type 2 diabetes mellitus with unspecified complications
[2024-09-05] MEDS: CETIRIZINE HCL 10 MG TABLET PO ONE (15:25)
--- NOTE | 2024-09-05 15:40 | Ultrasound Report ---
ULTRASOUND-GUIDED SUBCUTANEOUS ABSCESS DRAINAGE INDICATION: Complex fluid collection in the subcutaneous abdominal wall; history of hernia repair PROCEDURE: Procedure and risks were explained. Informed consent was obtained. The abdomen was prepped and draped in sterile fashion. 1% lidocaine was utilized for skin anesthesia. Utilizing ultrasound guidance, a 5 Arabic skater catheter was advanced into the complex subcutaneous abdominal fluid collection. Ultrasound images were obtained. Approximately 35 mL of purulent fluid wa s removed and sent to the lab for analysis. The catheter was removed and Band-Aid applied. Post scann ing demonstrated almost complete resolution of the complex fluid collection. The patient tolerated th e procedure well. Vital signs will be monitored on the floor. IMPRESSION: Subcutaneous abdominal abscess drainage as detailed above. Performed, dictated, and signed by Sarbjit Knight PA-C; to be co-signed by Dr. Dutch Raines. Electronically signed by: Dutch Raines M.D. 09/05/2024 4:04 PM
[2024-09-05] MEDS: CETIRIZINE HCL 10 MG TABLET PO SCH (20:35)
--- NOTE | 2024-09-06 07:37 | Surgery Progress Note ---
Date of Service September 06, 2024 Assessment & Plan (1) Soft tissue abscess: Plan: Drained by IR yesterday. Gram stain and cultures pending. Continue IV antibiotics. I would recommend a longer course of oral antibiotics at discharge perhaps 3 weeks. I will continue to follow while she is in the hospital but no surgical plans Admission and Anticipated Discharge Date Admission Date: September 02, 2024 Subjective Patient seen. Feeling considerably better than yesterday although still somewhat sore. No fevers overnight Physical Exam Constitutional: WD/WN, vitals as above no acute distress and not ill appearing Eyes: PERRL, conjunctivae normal, anicteric sclerae EOM intact bilaterally ENMT: external ear and nose normal, oropharynx normal Ears: no hearing impairment Neck: trachea midline, no thyromegaly Respiratory: normal respiratory effort; no respiratory distress and does not use accessory muscles Cardiovascular: Rate/Rhythm: regular rate and regular rhythm Gastrointestinal (Abdomen): Soft. Mild tenderness over the incision. There is still some mild erythema right on the incision itself but the surrounding redness has improved. Skin: no rashes, warm and dry Psychiatric: Orientation: alert, oriented x 3 and cooperative Results & Data Vital Signs (Past 12 Hours) Vital Signs Temp Pulse Resp BP BP Pulse Ox O2 Del Method 09/05/24 22:05 121/82 09/05/24 21:27 36.7 C 72 18 160/89 H 97 Room Air PG Care Time/CCT Total # of Minutes Spent Total Time Spent with Patient: Total time spent is greater than 50% in coordination of care (as documented) at patient's floor/unit and/or counseling patient: Coding Level of Care Code 80448 SUB INP/OBS CARE 06/10MIN Diagnoses Soft tissue abscess L02.91
[2024-09-06 07:52] LABS: BUN Creatinine Ratio 21.8 (10-20); Creatinine Clr Calc Pharmacy 98.3 ml/min; Potassium 4.3 mmol/L (3.5-5.1)
[2024-09-06 07:57] LABS: Hematocrit (blood only) 32.9 % (37.0-47.0); Hemoglobin 10.5 g/dl (12.0-16.0); Mean Corpuscular Hemoglobin 26.3 pg (25.0-34.0); Mean Corpuscular Hgb Conc 31.9 g/dL (32.0-36.0); Mean Corpuscular Volume 82.5 fL (80.0-100.0); Mean Platelet Volume 9.2 fL (9.4-12.4); Platelet Count 521 K/uL (130-400); RDW Standard Deviation 45.3 fL (36.4-46.3); Red Blood Count 3.99 M/uL (4.20-5.40); White Blood Count 5.98 K/ul (4.8-10.8)
[2024-09-06 08:24] LABS: Acanthocytes 1+; Basophils # (auto) 0.05 K/uL (0.00-0.20); Basophils % (auto) 0.8 %; Immature Granulocytes # (auto) 0.01 K/uL (0.01-0.20); Immature Granulocytes % (auto) 0.2 %; Lymphocytes # (auto) 3.03 K/uL (1.20-3.40); Lymphocytes % (auto) 50.7 %; Microcytosis Present; Monocytes # (auto) 0.81 K/uL (0.11-0.59); Monocytes % (auto) 13.5 %; Neutrophils # (auto) 1.78 K/uL (1.40-6.50); Neutrophils % (auto) 29.8 %
--- NOTE | 2024-09-06 11:11 | Hospitalist Progress Note ---
Date of Service September 06, 2024 Assessment & Plan (1) Abdominal pain: (2) Soft tissue abscess: (3) Hives: (4) Hypertension: (5) Diabetes: Plan This pt is a 54yo female w h/o multiple abdominal surgeries (pre-cancerous pancreatic mass with Whipple/splenectomy, cathy, ~5 hernia surgeries, prior excision of suture granuloma), DMII, HTN, HLD, Depression/anxiety, and GERD who p/w acute epigastric pain radiating to R jaw and nausea. Found to have cystic lesion/possible abscess in abdomen under site of previous laparotomy scar. CTA negative for PE #Abscess/cystic mass abdominal wall-CTAP noting 4x3.5 anterior abdominal wall subcutaneous complicated cystic lesion. LFTs, lipase normal. Troponin neg x 2, ECG without ischemic changes, no arrhythmias on tele. No evidence of sepsis. CTA Chest does show 2 irregular nodular pleural thickening CHARLY w/ 2 pleural based masses at apical segment of LLL measuring 65s23mo and ddx could include sequelae of prior granulomatous infection vs mesothelioma. Added Dapto on 09/04 and broke out in hives (had also received IV Venofer around same time)-Dapto stopped. Hives ongoing and may be from ceftriaxone? now s/p IR drainage 09/05 Wound culture with Staph aureus, sens pending -continue doxycycline, can dc ceftriaxone especially as may be causing hives -follow fluid cultures, AFB, cytology -appreciate Gen Surgery consult-f/u as outpt -needs PULM f/u as outpt for abnormal chest CT #Allergic reaction/Hives-broke out in hives on all four extremities after receiving Daptomycin and IV Venofer. No anaphylaxis. Has also been receiving Ceftriaxone and IV dilauidid as well. Hives ongoing, not much improvement with Zyrtec and benadryl. COUld be from ceftriaxone? -stopped Dapto, Venofer and now will stop ceftriaxone -needs f/u with [employer] Clerk as outpt for allergy testing to tease out cause -continue IV benadryl prn -continue Zyrtec 10mg po bid -conitinue to monitor for improvement #Anemia/Thrombocytosis-hemoglobin low at 10-11.2, MCV borderline microcytic at 8 2.9, platelets elevated in 500s but with h/o splenectomy.. Doubt menorrhagia as she has IUD in place. Ferritin low at 26. Plts high from inflammation/infection -Given IV Venofer x 1 and then broke out in rash -follow CBC -Needs GI outpatient workup with EGD and colonoscopy #DMII- A1c 6.0, well controlled on trulicity, metformin at baseline and BSGs have been acceptable -continue novolog SSI #HTN-no acute issues - Continue lisinopril #HLD-no acute issues - Holding rosuvastatin while on daptomycin #Depression/anxiety-no acute issues - Continue sertraline, BuSpar #GERD-no acute issues - Continue pantoprazole #Right sided breast nodules-seen on CT chest. Recent mammogram 06/2024 negative but needs breast ultrasound as an outpatient #Ankylosing spondylitis-hold home Cosentyx-will reach out to her Rheum Dr. Tariq Dispo: continued inpatient stay, possible dc to home tomorrow after culture sensitivities return Admission and Anticipated Discharge Date Admission Date: September 02, 2024 Subjective Pt feeling much improved with less abd pain. Still getting a headache each night she thinks from caffeine withdrawal. N onausea, no CP/SOB. Still with hives on legs and arms, itching, not much improvement Physical Exam Constitutional: WD/WN, vitals as above Respiratory: normal respiratory effort, lungs clear to auscultation Cardiovascular: RRR, no murmur, no edema Gastrointestinal (Abdomen): Inspection/Auscultation: + abdomen abnormal to inspection (laparotomy scar midline w/ mild erythema) Percussion/Palpation: + abdomen tender (mild at abscess site) and abdomen soft; no guarding palpable fluctuant area upper midline of lap scar Skin: + rash (scattered erythematous,macular v ariably sized lesions all 4 limbs) Psychiatric: A+Ox3, euthymic affect Results & Data Results & Data Vital Signs (Past 12 Hours) Vital Signs Temp Pulse Resp BP Pulse Ox O2 Del Method 09/06/24 07:36 36.7 C 61 16 126/85 96 Room Air Laboratory Results CBC, BMP, wound cx reviewed PG Care Time/CCT Total # of Minutes Spent Total Time Spent with Patient: Total time spent is greater than 50% in coordination of care (as documented) at patient's floor/unit and/or counseling patient: Coding Level of Care Code 06113 SUB INP/OBS CARE 235MIN Diagnoses Abdominal pain R10.9 Soft tissue abscess L02.91 Hives L50.9 Primary hypertension I10 Hypertension type: primary hypertension Diabetes E11.9 (4) Hypertension Hypertension type: primary hypertension Qualified Code(s): I10 - Essential (primary) hypertension
--- NOTE | 2024-09-06 19:01 | Communication Note ---
Date of Service: September 06, 2024 Assessed patient this evening due to complaints of epigastric pain radiating to her right-sided jaw and ear. She was laying in bed in no acute distress. She expressed concern that her abdominal infection is returning. Her midline abdominal scar has some mild erythema at the superior third, mild tenderness to palpation of epigastrium. Her cardiac and pulm exams were benign. Obtained EKG for completeness which revealed NSR in 70s, normal EKG without ischemic changes. She received IV Dilaudid 0.25 mg and her pain improved from 6/10 to 2/10. Adde d CBC and BMP to AM labs.
[2024-09-06] MEDS: MELATONIN 3 MG TAB PO PRN (20:16)
[2024-09-07 07:29] LABS: Hematocrit (blood only) 32.6 % (37.0-47.0); Hemoglobin 10.6 g/dl (12.0-16.0); Mean Corpuscular Hemoglobin 26.8 pg (25.0-34.0); Mean Corpuscular Hgb Conc 32.5 g/dL (32.0-36.0); Mean Corpuscular Volume 82.5 fL (80.0-100.0); Mean Platelet Volume 9.5 fL (9.4-12.4); Platelet Count 575 K/uL (130-400); RDW Coefficient of Variation 14.9 % (11.5-14.5); RDW Standard Deviation 45.2 fL (36.4-46.3); Red Blood Count 3.95 M/uL (4.20-5.40); White Blood Count 6.45 K/ul (4.8-10.8)
[2024-09-07 07:50] LABS: BUN Creatinine Ratio 28.9 (10-20); Creatinine Clr Calc Pharmacy 100.9 ml/min; Potassium 4.1 mmol/L (3.5-5.1)
--- NOTE | 2024-09-07 08:26 | Surgery Progress Note ---
Date of Service September 07, 2024 Assessment & Plan (1) Soft tissue abscess: Plan: I think the best course of action at this point would be to take her to the operating room for incision drainage and cleanout. I will likely place some antibiotic beads and either loosely close the wound versus place a drain. We discussed the pros and cons as well as risks. I have answered her questions and she agrees with the plan. She has not eaten since last night. I will add her on today for incision and drainage of recurrent abdominal wall abscess. Admission and Anticipated Discharge Date Admission Date: September 02, 2024 Subjective Patient seen. Had considerable abdominal pain again last night and believes her abscess is filling back up. Physical Exam Physical Exam: Alert no acute distress On her abdomen there is still some considerable erythema and warmth. It is mildly tender. Realistically minimal improvement since interventional radiology drained it Results & Data Vital Signs (Past 12 Hours) Vital Signs Temp Pulse Resp BP Pulse Ox O2 Del Method 09/07/24 07:38 36.5 C 62 16 137/82 96 Room Air 09/06/24 22:07 36.8 C 68 16 121/72 96 Room Air PG Care Time/CCT Total # of Minutes Spent Total Time Spent with Patient: Total time spent is greater than 50% in coordination of care (as documented) at patient's floor/unit and/or counseling patient: Coding Level of Care Code 67996 SUB INP/OBS CARE 06/10MIN Diagnoses Soft tissue abscess L02.91
[2024-09-07 10:38] LABS: Pregnancy Test, Urine Negative (Negative)
--- NOTE | 2024-09-07 10:43 | Electrocardiogram Report ---
Test Reason : Blood Pressure : */* mmHG Vent. Rate : 74 BPM Atrial Rate : 74 BPM P-R Int : 142 ms QRS Dur : 80 ms QT Int : 388 ms P-R-T Axes : 52 13 48 degrees QTcB Int : 430 ms Normal sinus rhythm Normal ECG When compared with ECG of 02-Sep-2024 17:38, No significant change was found Confirmed by Pedro Luis Trammell ([id number]) on 09/07/2024 10:43:30 AM Referred By: REFERRED SELF Confirmed By: Pedro Luis Trammell
[2024-09-07] MEDS: LACTATED RINGER'S 1,000 ML IV SCH (12:21)
[2024-09-07] MEDS ORDERED: LIDOCAINE 2% 2 ML VIAL/AMP(20MG/ML) INFIL ONE (12:33)
[2024-09-07] MEDS ORDERED: DEXAMETHASONE SOD INJ 4 MG/ML VIAL ONE (12:33)
[2024-09-07] MEDS ORDERED: PROPOFOL IV EMULSION 10 MG/ML 20 ML VIAL IV ONE (12:33)
[2024-09-07] MEDS ORDERED: MIDAZOLAM HCL 1 MG/ML 2ML VIAL ONE (12:33)
[2024-09-07] MEDS ORDERED: ONDANSETRON INJ 2 MG/ML 2 ML VIAL ONE (12:33)
[2024-09-07] MEDS ORDERED: fentaNYL citrate PF 100 MCG/2 ML VIAL ONE (12:33)
[2024-09-07] MEDS ORDERED: ePHEDrine sulfate 50 MG/ML AMP IV PRN (13:01)
[2024-09-07] MEDS ORDERED: ATROPINE SULFATE 0.1 MG/ML 10ML SYR IV PRN (13:01)
--- NOTE | 2024-09-07 13:01 | Anesthesiology Consultation ---
Date of Service September 07, 2024 Assessment & Plan ASA ASA2 Proposed Anesthesia Anesthesia Type: General Risk / Benefits Reviewed With: PT / POA / Parent / Guardian, Accepts Plan and Informed Consent Obtained History Surgery Operation Date: 09/07/24 08:20 Proposed Procedures p Incision and Drainage Abdominal Abscess - Sarbjit Andrade, DO Height/Weight Height: 5 ft 6 in Weight: 95.5 kg Allergies Allergy/AdvReac Type Severity Reaction Status Date / Time pineapple Allergy Severe Anaphylaxis Verified 09/02/24 19:25 daptomycin Allergy Intermediate Hives Verified 09/07/24 12:23 Penicillins Allergy Intermediate Hives (as Verified 09/02/24 19:25 baby) eugenol Allergy Mild Rash Verified 09/02/24 19:25 mold Allergy Mild Allergy Verified 09/02/24: tested > sinus issues tramadol AdvReac Intermediate Slurred Verified 09/02/24 19:25 speech, nauseous, dizziness morphine AdvReac Mild Itching Verified 09/02/24 19:25 Sulfa (Sulfonamide AdvReac Mild Nausea Verified 09/02/24 19:25 Antibiotics) Medications Home Medications Medication Instructions Recorded Confirmed Last Taken ascorbic acid (vitamin C) 1,000 mg 2 g PO QAM 11/06/19 09/02/24 09/01/24 tablet (Vitamin C) aspirin 81 mg tablet,delayed 81 mg PO PM 11/06/19 09/02/24 09/01/24 release cholecalciferol (vitamin D3) 125 250 mcg PO QAM 11/06/19 09/02/24 09/01/24 mcg (5,000 unit) tablet (Vitamin D3) fluticasone propionate 50 2 spray intranasal HS 11/06/19 09/02/24 09/01/24 mcg/actuation nasal spray,suspension (Flonase Allergy Relief) levonorgestrel 21 mcg/24 hr (up to 20 mcg intrauterine CONTINOUS 11/06/19 09/02/24 09/30/22 06:00 8 years) 52 mg intrauterine device (Mirena) lisinopril 20 mg tablet 20 mg PO QAM 11/06/19 09/02/24 09/02/24 metformin 500 mg tablet 500 mg PO BID 11/06/19 09/02/24 09/02/24 08:00 mv-min-vit C-ascorb 1.7 mg PO QAM 11/06/19 09/02/24 09/01/24 Rt-Piu-Ugd-herb #124 333 mg-1.7 mg chewable tablet (Airborne (ascorbate sodium)) omeprazole 40 mg capsule,delayed 40 mg PO QAM 11/06/19 09/02/24 09/02/24 release rosuvastatin 10 mg tablet 10 mg PO QPM 11/06/19 09/02/24 09/01/24 buspirone 5 mg tablet 5 mg PO BID 09/02/20 09/02/24 09/02/24 08:00 zolpidem 10 mg tablet (Ambien) 10 mg PO HS PRN Sleep 09/02/20 09/02/24 09/25/22 21:00 multivitamin (Multiple Vitamins 1 tab PO QAM 07/25/21 09/02/24 09/01/24 tablet) biotin 10,000 mcg chewable tablet 10,000 mcg PO QAM 09/22/22 09/02/24 09/01/24 coQ10 (ubiquinol) 100 mg capsule 100 mg PO QAM 09/22/22 09/02/24 09/01/24 cyanocobalamin (vitamin B-12) 1,000 mcg PO QAM 09/22/22 09/02/24 09/01/24 1,000 mcg capsule diclofenac potassium 50 mg tablet 50 mg PO BID 09/22/22 09/02/24 09/02/24 08:00 glucosamin 375 mg-chond 300 1 cap PO BID 09/22/22 09/02/24 09/02/24 08:00 mg-collagen 50 mg-hyaluronic acid 2 mg cap pyridoxine (vitamin B6) 50 mg 100 mg PO QAM 09/22/22 09/02/24 09/01/24 capsule (Vitamin B-6) secukinumab 150 mg/mL subcutaneous 150 mg subcut MONTHLY 09/22/22 09/02/24 08/30/22 16:00 syringe (Cosentyx) Acv Gummies 1 tab PO DAILY 09/02/24 09/02/24 09/01/24 Moringa 1,000 mg PO BID 09/02/24 09/02/24 09/01/24 Turmeric/Curcumin 1 tab PO TID 09/02/24 09/02/24 09/01/24 calcium carbonate (Calcium 600) 600 mg PO DAILY 09/02/24 09/02/24 09/01/24 docusate sodium 100 mg capsule 100 mg PO DAILY 09/02/24 09/02/24 09/01/24 dulaglutide 0.75 mg/0.5 mL 0.75 mg subcut WK 09/02/24 09/02/24 08/29/24 subcutaneous pen injector (Trulicity) elderberry fruit 350 mg capsule 1,050 mg PO HS 09/02/24 09/02/24 09/01/24 fexofenadine 180 mg tablet 180 mg PO DAILY 09/02/24 09/02/24 09/02/24 milk thistle 500 mg capsule 1,000 mg PO HS 09/02/24 09/02/24 09/01/24 omega-3 fatty acids 1,000 mg 3,000 mg PO DAILY 09/02/24 09/02/24 09/01/24 capsule polyethylene glycol 3350 17 17 g PO BID 09/02/24 09/02/24 09/01/24 gram/dose oral powder (Miralax) sertraline 50 mg tablet 50 mg PO [facility] 09/02/24 09/02/24 09/02/24 zinc gluconate 50 mg tablet 50 mg PO DAILY 09/02/24 09/02/24 09/01/24 Active Medications Generic Name Dose Route Start Last Admin Trade Name Freq PRN Reason Stop Dose Admin Acetaminophen 650 mg 09/03/24 01:59 09/05/24 21:35 Acetaminophen 325 Mg Tab PO 10/03/24 01:58 650 mg Q4H PRN Administration Pain Buspirone HCl 5 mg 09/03/24 09:00 09/07/24 08:34 Buspirone 5 Mg Tab PO 10/03/24 08:59 5 mg BID LARON Administration Cetirizine HCl 10 mg 09/05/24 21:00 09/07/24 08:34 Cetirizine Hcl 10 Mg Tablet PO 10/05/24 20:59 10 mg BID LARON Administration Diphenhydramine HCl 25 mg 09/04/24 19:15 09/07/24 05:12 Diphenhydramine 50 Mg/Ml Vial IV 10/04/24 19:14 25 mg Q6H PRN Administration rash or itching Docusate Sodium 100 mg 09/04/24 10:45 09/07/24 08:35 Docusate Sodium 100 Mg Cap PO 10/04/24 10:44 100 mg BID LARON Administration Fluticasone Propionate 1 sprays 09/03/24 21:00 09/06/24 20:15 Fluticasone Propionate Na Spr 16 Gm Btl NA 10/03/24 20:59 1 sprays HS LARON Administration Hydromorphone HCl 0.25 mg 09/02/24 22:05 09/07/24 09:48 Hydromorphone Inj 0.5 Mg/0.5 Ml Syr IV 09/16/24 22:04 0.25 mg Q3H PRN Administration Pain (1,2,3,4,5) & Pre PT Doxycycline Hyclate 100 mg/ 100 mls @ 50 mls/hr 09/05/24 09:00 09/07/24 11:25 Dextrose IV 09/12/24 08:59 Infused Q12H LARON Infusion Lactated Ringer's 1,000 mls @ 15 mls/hr 09/07/24 12:30 09/07/24 12:21 Lr IV 09/08/24 12:29 15 mls/hr .Q24H LARON Administration Ibuprofen 600 mg 09/05/24 09:12 09/07/24 05:12 Ibuprofen 600 Mg Tab PO 10/05/24 12:59 600 mg QID PRN Administration pain or headache Insulin Aspart 0 units 09/03/24 16:30 09/07/24 12:32 Insulin Aspart Per Unit Charge SC 10/03/24 16:29 Not Given ACHS LARON Lisinopril 20 mg 09/03/24 09:00 09/07/24 08:34 Lisinopril 20 Mg Tab PO 10/03/24 08:59 20 mg QAM LARON Administration Melatonin 3 mg 09/03/24 00:04 09/06/24 20:16 Melatonin 3 Mg Tab PO 10/03/24 00:03 3 mg HS PRN Administration Sleep Ondansetron HCl 4 mg 09/03/24 00:04 09/04/24 20:52 Ondansetron Inj 2 Mg/Ml 2 Ml Vial IV 10/03/24 00:03 4 mg Q6H PRN Administration Nausea Pantoprazole Sodium 40 mg 09/03/24 09:00 09/07/24 08:34 Pantoprazole 40 Mg Tab PO 10/03/24 08:59 40 mg QAM LARON Administration Polyethylene Glycol 17 gm 09/03/24 09:00 09/07/24 07:51 Polyethylene (Miralax) 17 Gm Pack PO 10/03/24 08:59 Not Given BID LARON Rosuvastatin Calcium 10 mg 09/03/24 21:00 09/06/24 20:16 Rosuvastatin Calcium 10 Mg Tab PO 10/03/24 20:59 10 mg QPM LARON Administration Sertraline HCl 50 mg 09/03/24 09:00 09/07/24 08:34 Sertraline Hcl 50 Mg Tablet PO 10/03/24 08:59 50 mg QAM LARON Administration Zolpidem Tartrate 10 mg 09/03/24 00:18 09/05/24 21:35 Zolpidem Tartrate 5 Mg Tab PO 10/03/24 00:17 10 mg HS PRN Administration Sleep NPO Date Last Intake of Fluids: 09/06/24 Time Last Intake of Fluids: 21:30 Last Intake of Fluids Comment: with am meds Date Last Intake of Solids: 09/06/24 Time Last Intake of Solids: 18:00 Past Medical History Medical History Diabetic peripheral 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 Painful scar Contact dermatitis Surgical wound, non healing Postoperative seroma Ventral hernia Incisional hernia Vomiting and diarrhea History of COVID-02 NOVEMBER 2021>RESOLVED Morbid obesity Stress incontinence GERD (gastroesophageal reflux disease) IBS (irritable bowel syndrome) Diabetes mellitus, type 2 Pancreatic tumor Benign>HX Anxiety History of migraine headaches IUD (intrauterine device) in place Mirena inserted in OR 04/2021 Exercise / Class Metabolic Activity II 4-5 Yardwork/Stairs/Walk up hill Past Family History Family History Grandmother Hypertension Grandfather Hypertension Father Hypertension Grandmother (Maternal) Diabetes Bipolar disorder Hypothyroidism Grandfather (Maternal) Heart disease Grandfather (Paternal) Diabetes Heart disease Other No family history of adverse response to anesthesia Denies family history of Ovarian cancer Breast cancer Colorectal cancer Past Surgical History Surgical History Status post hernia repair H/O abdominal surgery (10/01/22) Wound Exploration with Excision of Suture Granuloma with Placement of Antibiotic Beads(Not Applicable) - Sarbjit Andrade, History of tooth extraction History of gynecologic surgery MIRENA REMOVAL AND INSERTION UNDER ANESTHESIA H/O ventral hernia repair Open Ventral Hernia Repair with Mesh (11/23/19): Grade 3 view, MAC#3, ETT 7.5 at [facility] (weight at time 109kg) H/O breast biopsy RT > benign History of esophagogastroduodenoscopy (EGD) History of lung surgery Left VATS r/t "fluid build up" (2008) 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 History of wisdom tooth extraction History of dilatation and curettage History of cholecystectomy Past Anesthesia History No Hx of Anesthesia Complications and No Family Hx of Anesthesia Complications History of PONV No Hx of PONV and No Hx of Motion Sickness Social History Smoking Status: Never smoker Do You Dip or Chew Tobacco: No Hx Alcohol Use: No Alcohol type: hard liquor alcohol intake frequency: other Hx Substance Use: No substance use type: does not use Physical Exam Vital Signs Last Vital Signs Temp 36.8 C 09/07/24 12:16 Pulse 60 09/07/24 12:16 Resp 20 09/07/24 12:16 BP 150/89 H 09/07/24 12:16 Pulse Ox 99 09/07/24 12:16 O2 Del Method Room Air 09/07/24 12:16 Constitutional no acute distress ENMT Mouth: no dentition abnormality Thyromental Distance: > or= 3.5 Finger Breadths Mallampati Class: II Neck normal visual inspection Respiratory normal respiratory effort; no respiratory distress Auscultation: lungs clear to auscultation bilaterally Cardiovascular Rate/Rhythm: regular rate and regular rhythm Heart Sounds: no murmur Musculoskeletal Spine: normal cervical ROM Psychiatric Orientation: alert and oriented x 3 Testing Laboratory Results 09/07/24 05:58 09/07/24 05:58 Hemoglobin A1c 6.0 % (4.5-5.6) H 09/04/24 05:48 Urine Test Negative (Negative) 09/07/24 Unknown 09/05/24 Unknown Acid Fast Bacilli Smear - Final Cyst 09/05/24 Unknown Gram Stain - Final Abdomen Aerobic and Anaerobic Culture - Preliminary Staphylococcus aureus Staphylococcus aureus#2 09/07/24 09/07/24 09/07/24 12:16 11:23 07:45 POC Glucose 99 100 H 90 09/07/24 Unknown Urine Test Negative Day of Procedure Evaluation. Date of Surgery September 07, 2024 Height/Weight Height: 5 ft 6 in Weight: 95.5 kg Vital Signs Last Vital Signs Temp 36.8 C 09/07/24 12:16 Pulse 60 09/07/24 12:16 Resp 20 09/07/24 12:16 BP 150/89 H 09/07/24 12:16 Pulse Ox 99 09/07/24 12:16 O2 Del Method Room Air 09/07/24 12:16 Allergies Allergy/AdvReac Type Severity Reaction Status Date / Time pineapple Allergy Severe Anaphylaxis Verified 09/02/24 19:25 daptomycin Allergy Intermediate Hives Verified 09/07/24 12:23 Penicillins Allergy Intermediate Hives (as Verified 09/02/24 19:25 baby) eugenol Allergy Mild Rash Verified 09/02/24 19:25 mold Allergy Mild Allergy Verified 09/02/24 19:25 tested > sinus issues tramadol AdvReac Intermediate Slurred Verified 09/02/24 19:25 speech, nauseous, dizziness morphine AdvReac Mild Itching Verified 09/02/24 19:25 Sulfa (Sulfonamide AdvReac Mild Nausea Verified 09/02/24 19:25 Antibiotics) Medications Home Medications Medication Instructions Recorded Confirmed Last Taken ascorbic acid (vitamin C) 1,000 mg 2 g PO QAM 11/06/19 09/02/24 09/01/24 tablet (Vitamin C) aspirin 81 mg tablet,delayed 81 mg PO PM 11/06/19 09/02/24 09/01/24 release cholecalciferol (vitamin D3) 125 250 mcg PO QAM 11/06/19 09/02/24 09/01/24 mcg (5,000 unit) tablet (Vitamin D3) fluticasone propionate 50 2 spray intranasal HS 11/06/19 09/02/24 09/01/24 mcg/actuation nasal spray,suspension (Flonase Allergy Relief) levonorgestrel 21 mcg/24 hr (up to 20 mcg intrauterine CONTINOUS 11/06/19 09/02/24 09/30/22 06:00 10 years) 52 mg intrauterine device (Mirena) lisinopril 20 mg tablet 20 mg PO QAM 11/06/19 09/02/24 09/02/24 metformin 500 mg tablet 500 mg PO BID 11/06/19 09/02/24 09/02/24 08:00 mv-min-vit C-ascorb 1.7 mg PO QAM 11/06/19 09/02/24 09/01/24 Mq-Pwe-Evm-herb #124 333 mg-1.7 mg chewable tablet (Airborne (ascorbate sodium)) omeprazole 40 mg capsule,delayed 40 mg PO QAM 11/06/19 09/02/24 09/02/24 release rosuvastatin 10 mg tablet 10 mg PO QPM 11/06/19 09/02/24 09/01/24 buspirone 5 mg tablet 5 mg PO BID 09/02/20 09/02/24 09/02/24 08:00 zolpidem 10 mg tablet (Ambien) 10 mg PO HS PRN Sleep 09/02/20 09/02/24 09/25/22 21:00 multivitamin (Multiple Vitamins 1 tab PO QAM 07/25/21 09/02/24 09/01/24 tablet) biotin 10,000 mcg chewable tablet 10,000 mcg PO QAM 09/22/22 09/02/24 09/01/24 coQ10 (ubiquinol) 100 mg capsule 100 mg PO QAM 09/22/22 09/02/24 09/01/24 cyanocobalamin (vitamin B-12) 1,000 mcg PO QAM 09/22/22 09/02/24 09/01/24 1,000 mcg capsule diclofenac potassium 50 mg tablet 50 mg PO BID 09/22/22 09/02/24 09/02/24 08:00 glucosamin 375 mg-chond 300 1 cap PO BID 09/22/22 09/02/24 09/02/24 08:00 mg-collagen 50 mg-hyaluronic acid 2 mg cap pyridoxine (vitamin B6) 50 mg 100 mg PO QAM 09/22/22 09/02/24 09/01/24 capsule (Vitamin B-6) secukinumab 150 mg/mL subcutaneous 150 mg subcut MONTHLY 09/22/22 09/02/24 08/30/22 16:00 syringe (Cosentyx) Acv Gummies 1 tab PO DAILY 09/02/24 09/02/24 09/01/24 [place] 1,000 mg PO BID 09/02/24 09/02/24 09/01/24 Turmeric/Curcumin 1 tab PO TID 09/02/24 09/02/24 09/01/24 calcium carbonate (Calcium 600) 600 mg PO DAILY 09/02/24 09/02/24 09/01/24 docusate sodium 100 mg capsule 100 mg PO DAILY 09/02/24 09/02/24 09/01/24 dulaglutide 0.75 mg/0.5 mL 0.75 mg subcut WK 09/02/24 09/02/24 08/29/24 subcutaneous pen injector ([facility]) elderberry fruit 350 mg capsule 1,050 mg PO HS 09/02/24 09/02/24 09/01/24 fexofenadine 180 mg tablet 180 mg PO DAILY 09/02/24 09/02/24 09/02/24 milk thistle 500 mg capsule 1,000 mg PO HS 09/02/24 09/02/24 09/01/24 omega-3 fatty acids 1,000 mg 3,000 mg PO DAILY 09/02/24 09/02/24 09/01/24 capsule polyethylene glycol 3350 17 17 g PO BID 09/02/24 09/02/24 09/01/24 gram/dose oral powder (Miralax) sertraline 50 mg tablet 50 mg PO QA 09/02/24 09/02/24 09/02/24 zinc gluconate 50 mg tablet 50 mg PO DAILY 09/02/24 09/02/24 09/01/24 Active Medications Generic Name Dose Route Start Last Admin Trade Name Freq PRN Reason Stop Dose Admin Acetaminophen 650 mg 09/03/24 01:59 09/05/24 21:35 Acetaminophen 325 Mg Tab PO 10/03/24 01:58 650 mg Q4H PRN Administration Pain Buspirone HCl 5 mg 09/03/24 09:00 09/07/24 08:34 Buspirone 5 Mg Tab PO 10/03/24 08:59 5 mg BID LARON Administration Cetirizine HCl 10 mg 09/05/24 21:00 09/07/24 08:34 Cetirizine Hcl 10 Mg Tablet PO 10/05/24 20:59 10 mg BID LARON Administration Diphenhydramine HCl 25 mg 09/04/24 19:15 09/07/24 05:12 Diphenhydramine 50 Mg/Ml Vial IV 10/04/24 19:14 25 mg Q6H PRN Administration rash or itching Docusate Sodium 100 mg 09/04/24 10:45 09/07/24 08:35 Docusate Sodium 100 Mg Cap PO 10/04/24 10:44 100 mg BID LARON Administration Fluticasone Propionate 1 sprays 09/03/24 21:00 09/06/24 20:15 Fluticasone Propionate Na Spr 16 Gm Btl NA 10/03/24 20:59 1 sprays HS LARON Administration Hydromorphone HCl 0.25 mg 09/02/24 22:05 09/07/24 09:48 Hydromorphone Inj 0.5 Mg/0.5 Ml Syr IV 09/16/24 22:04 0.25 mg Q3H PRN Administration Pain (1,2,3,4,5) & Pre PT Doxycycline Hyclate 100 mg/ 100 mls @ 50 mls/hr 09/05/24 09:00 09/07/24 11:25 Dextrose IV 09/12/24 08:59 Infused Q12H LARON Infusion Lactated Ringer's 1,000 mls @ 15 mls/hr 09/07/24 12:30 09/07/24 12:21 Lr IV 09/08/24 12:29 15 mls/hr .Q24H LARON Administration Ibuprofen 600 mg 09/05/24 09:12 09/07/24 05:12 Ibuprofen 600 Mg Tab PO 10/05/24 12:59 600 mg QID PRN Administration pain or headache Insulin Aspart 0 units 09/03/24 16:30 09/07/24 12:32 Insulin Aspart Per Unit Charge SC 10/03/24 16:29 Not Given ACHS LARON Lisinopril 20 mg 09/03/24 09:00 09/07/24 08:34 Lisinopril 20 Mg Tab PO 10/03/24 08:59 20 mg QAM LARON Administration Melatonin 3 mg 09/03/24 00:04 09/06/24 20:16 Melatonin 3 Mg Tab PO 10/03/24 00:03 3 mg HS PRN Administration Sleep Ondansetron HCl 4 mg 09/03/24 00:04 09/04/24 20:52 Ondansetron Inj 2 Mg/Ml 2 Ml Vial IV 10/03/24 00:03 4 mg Q6H PRN Administration Nausea Pantoprazole Sodium 40 mg 09/03/24 09:00 09/07/24 08:34 Pantoprazole 40 Mg Tab PO 10/03/24 08:59 40 mg QAM LARON Administration Polyethylene Glycol 17 gm 09/03/24 09:00 09/07/24 07:51 Polyethylene (Miralax) 17 Gm Pack PO 10/03/24 08:59 Not Given BID LARON Rosuvastatin Calcium 10 mg 09/03/24 21:00 09/06/24 20:16 Rosuvastatin Calcium 10 Mg Tab PO 10/03/24 20:59 10 mg QPM LARON Administration Sertraline HCl 50 mg 09/03/24 09:00 09/07/24 08:34 Sertraline Hcl 50 Mg Tablet PO 10/03/24 08:59 50 mg QAM LARON Administration Zolpidem Tartrate 10 mg 09/03/24 00:18 09/05/24 21:35 Zolpidem Tartrate 5 Mg Tab PO 10/03/24 00:17 10 mg HS PRN Administration Sleep Past Anesthesia History No Hx of Anesthesia Complications and No Family Hx of Anesthesia Complications History of PONV No Hx of PONV and No Hx of Motion Sickness NPO Date Last Intake of Fluids: 09/06/24 Time Last Intake of Fluids: 21:30 Last Intake of Fluids Comment: with am meds Date Last Intake of Solids: 09/06/24 Time Last Intake of Solids: 18:00 HCG & FBG Results 09/07/24 Unknown Urine Test Negative 09/07/24 09/07/24 09/07/24 12:16 11:23 07:45 POC Glucose 99 100 H 90 Home Medications Home Medications Medication Instructions Recorded Confirmed Last Taken ascorbic acid (vitamin C) 1,000 mg 2 g PO QAM 11/06/19 09/02/24 09/01/24 tablet (Vitamin C) aspirin 81 mg tablet,delayed 81 mg PO PM 11/06/19 09/02/24 09/01/24 release cholecalciferol (vitamin D3) 125 250 mcg PO QAM 11/06/19 09/02/24 09/01/24 mcg (5,000 unit) tablet (Vitamin D3) fluticasone propionate 50 2 spray intranasal HS 11/06/19 09/02/24 09/01/24 mcg/actuation nasal spray,suspension (Flonase Allergy Relief) levonorgestrel 21 mcg/24 hr (up to 20 mcg intrauterine CONTINOUS 11/06/19 09/02/24 09/30/22 06:00 8 years) 52 mg intrauterine device (Mirena) lisinopril 20 mg tablet 20 mg PO QAM 11/06/19 09/02/24 09/02/24 metformin 500 mg tablet 500 mg PO BID 11/06/19 09/02/24 09/02/24 08:00 mv-min-vit C-ascorb 1.7 mg PO QAM 11/06/19 09/02/24 09/01/24 Vh-Oed-Zim-herb #124 333 mg-1.7 mg chewable tablet (Airborne (ascorbate sodium)) omeprazole 40 mg capsule,delayed 40 mg PO QAM 11/06/19 09/02/24 09/02/24 release rosuvastatin 10 mg tablet 10 mg PO QPM 11/06/19 09/02/24 09/01/24 buspirone 5 mg tablet 5 mg PO BID 09/02/20 09/02/24 09/02/24 08:00 zolpidem 10 mg tablet (Ambien) 10 mg PO HS PRN Sleep 09/02/20 09/02/24 09/25/22 21:00 multivitamin (Multiple Vitamins 1 tab PO QAM 07/25/21 09/02/24 09/01/24 tablet) biotin 10,000 mcg chewable tablet 10,000 mcg PO QAM 09/22/22 09/02/24 09/01/24 coQ10 (ubiquinol) 100 mg capsule 100 mg PO QAM 09/22/22 09/02/24 09/01/24 cyanocobalamin (vitamin B-12) 1,000 mcg PO QAM 09/22/22 09/02/24 09/01/24 1,000 mcg capsule diclofenac potassium 50 mg tablet 50 mg PO BID 09/22/22 09/02/24 09/02/24 08:00 glucosamin 375 mg-chond 300 1 cap PO BID 09/22/22 09/02/24 09/02/24 08:00 mg-collagen 50 mg-hyaluronic acid 2 mg cap pyridoxine (vitamin B6) 50 mg 100 mg PO QAM 09/22/22 09/02/24 09/01/24 capsule (Vitamin B-6) secukinumab 150 mg/mL subcutaneous 150 mg subcut MONTHLY 09/22/22 09/02/24 08/30/22 16:00 syringe (Cosentyx) Acv Gummies 1 tab PO DAILY 09/02/24 09/02/24 09/01/24 [place] 1,000 mg PO BID 09/02/24 09/02/24 09/01/24 Turmeric/Curcumin 1 tab PO TID 09/02/24 09/02/24 09/01/24 calcium carbonate (Calcium 600) 600 mg PO DAILY 09/02/24 09/02/24 09/01/24 docusate sodium 100 mg capsule 100 mg PO DAILY 09/02/24 09/02/24 09/01/24 dulaglutide 0.75 mg/0.5 mL 0.75 mg subcut WK 09/02/24 09/02/24 08/29/24 subcutaneous pen injector (Trulicity) elderberry fruit 350 mg capsule 1,050 mg PO HS 09/02/24 09/02/24 09/01/24 fexofenadine 180 mg tablet 180 mg PO DAILY 09/02/24 09/02/24 09/02/24 milk thistle 500 mg capsule 1,000 mg PO HS 09/02/24 09/02/24 09/01/24 omega-3 fatty acids 1,000 mg 3,000 mg PO DAILY 09/02/24 09/02/24 09/01/24 capsule polyethylene glycol 3350 17 17 g PO BID 09/02/24 09/02/24 09/01/24 gram/dose oral powder (Miralax) sertraline 50 mg tablet 50 mg PO QAM 09/02/24 09/02/24 09/02/24 zinc gluconate 50 mg tablet 50 mg PO DAILY 09/02/24 09/02/24 09/01/24 Active Medications Generic Name Dose Route Start Last Admin Trade Name Freq PRN Reason Stop Dose Admin Acetaminophen 650 mg 09/03/24 01:59 09/05/24 21:35 Acetaminophen 325 Mg Tab PO 10/03/24 01:58 650 mg Q4H PRN Administration Pain Buspirone HCl 5 mg 09/03/24 09:00 09/07/24 08:34 Buspirone 5 Mg Tab PO 10/03/24 08:59 5 mg BID LARON Administration Cetirizine HCl 10 mg 09/05/24 21:00 09/07/24 08:34 Cetirizine Hcl 10 Mg Tablet PO 10/05/24 20:59 10 mg BID LARON Administration Diphenhydramine HCl 25 mg 09/04/24 19:15 09/07/24 05:12 Diphenhydramine 50 Mg/Ml Vial IV 10/04/24 19:14 25 mg Q6H PRN Administration rash or itching Docusate Sodium 100 mg 09/04/24 10:45 09/07/24 08:35 Docusate Sodium 100 Mg Cap PO 10/04/24 10:44 100 mg BID LARON Administration Fluticasone Propionate 1 sprays 09/03/24 21:00 09/06/24 20:15 Fluticasone Propionate Na Spr 16 Gm Btl NA 10/03/24 20:59 1 sprays HS LARON Administration Hydromorphone HCl 0.25 mg 09/02/24 22:05 09/07/24 09:48 Hydromorphone Inj 0.5 Mg/0.5 Ml Syr IV 09/16/24 22:04 0.25 mg Q3H PRN Administration Pain (1,2,3,4,5) & Pre PT Doxycycline Hyclate 100 mg/ 100 mls @ 50 mls/hr 09/05/24 09:00 09/07/24 11:25 Dextrose IV 09/12/24 08:59 Infused Q12H LARON Infusion Lactated Ringer's 1,000 mls @ 15 mls/hr 09/07/24 12:30 09/07/24 12:21 Lr IV 09/08/24 12:29 15 mls/hr .Q24H LARON Administration Ibuprofen 600 mg 09/05/24 09:12 09/07/24 05:12 Ibuprofen 600 Mg Tab PO 10/05/24 12:59 600 mg QID PRN Administration pain or headache Insulin Aspart 0 units 09/03/24 16:30 09/07/24 12:32 Insulin Aspart Per Unit Charge SC 10/03/24 16:29 Not Given ACHS LARON Lisinopril 20 mg 09/03/24 09:00 09/07/24 08:34 Lisinopril 20 Mg Tab PO 10/03/24 08:59 20 mg QAM LARON Administration Melatonin 3 mg 09/03/24 00:04 09/06/24 20:16 Melatonin 3 Mg Tab PO 10/03/24 00:03 3 mg HS PRN Administration Sleep Ondansetron HCl 4 mg 09/03/24 00:04 09/04/24 20:52 Ondansetron Inj 2 Mg/Ml 2 Ml Vial IV 10/03/24 00:03 4 mg Q6H PRN Administration Nausea Pantoprazole Sodium 40 mg 09/03/24 09:00 09/07/24 08:34 Pantoprazole 40 Mg Tab PO 10/03/24 08:59 40 mg QAM LARON Administration Polyethylene Glycol 17 gm 09/03/24 09:00 09/07/24 07:51 Polyethylene (Miralax) 17 Gm Pack PO 10/03/24 08:59 Not Given BID LARON Rosuvastatin Calcium 10 mg 09/03/24 21:00 09/06/24 20:16 Rosuvastatin Calcium 10 Mg Tab PO 10/03/24 20:59 10 mg QPM LARON Administration Sertraline HCl 50 mg 09/03/24 09:00 09/07/24 08:34 Sertraline Hcl 50 Mg Tablet PO 10/03/24 08:59 50 mg QAM LARON Administration Zolpidem Tartrate 10 mg 09/03/24 00:18 09/05/24 21:35 Zolpidem Tartrate 5 Mg Tab PO 10/03/24 00:17 10 mg HS PRN Administration Sleep Exercise / Class Metabolic Activity Metabolic Activity: II 4-5 Yardwork/Stairs/Walk up hill Physical Exam Constitutional: no acute distress Mouth: no dentition abnormality Thyromental Distance: > or= 3.5 Finger Breadths Mallampati Class: II Neck: + visual inspection normal Respiratory: + respiratory effort normal and + clear to auscultation bilaterally; no respiratory distress Cardiovascular: + regular rate and + regular rhythm; no murmur Musculoskeletal: no limited cervical ROM Psychiatric: + alert and + oriented x 3 ASA ASA2 Proposed Anesthesia Proposed Anesthesia: General Risk / Benefits Reviewed With: PT / POA / Parent / Guardian, Accepts Plan and Informed Consent Obtained Additional Comments: Labs and studies reviewed.
[2024-09-07] MEDS: BUPIVACAINE/EPINEPHRINE 0.5% MPF 1:200,000 30 ML VIAL ONE (14:03)
[2024-09-07] MEDS: GENTAMICIN SULFATE 40 MG/ML 2 ML VIAL ONE (14:03)
[2024-09-07] MEDS: VANCOMYCIN HCL 1000MG/20ML VIAL ONE (14:04)
--- NOTE | 2024-09-07 14:07 | Operative Report ---
PG Post Operative Report Pre & Post Diagnosis Operation Date: 09/07/24 08:20 Pre-Op Diagnosis: Soft tissue abscess Post-Op Diagnosis: Soft tissue abscess I identified the patient and participated in the time-out.: Yes Procedure Operation Date: 09/07/24 08:20 Actual Procedures p Incision and Drainage of Abdominal Abscess(Not Applicable) - Sarbjit Andrade DO Surgeon Sarbjit Andrade DO Case Folder kirby Gaitan Estimated Blood Loss 5 Findings Consistent with Post-Op Diagnosis Specimens none Description of Procedure After informed consent was obtained the patient was taken the operating room and placed in supine position. After successful placement of laryngeal mask airway the abdomen was sterilely prepped and draped in usual fashion. 15 blade scalpel was used to open her prior midline incision over the red swollen area. This was carried down through the soft tissue using cautery. We readily encountered a an abscess pocket with thin serous fluid mixed with purulent mcneal fluid. There was no foul odor. A sample already been sent for culture/gram stain from so we simply suctioned out the fluid. We thoroughly irrigated the wound. There were several sutures in the wound bed from prior biologic mesh placement including some Ethibond as well as Prolene backing from the mesh itself. All of the foreign body that was visible was removed. Some additional thorough irrigation was performed. Antibiotic beads that had been mixed with 240 mg of gentamicin and 1 g of vancomycin were placed into the wound cavity. The wound was then closed loosely using skin umair. A silver dressing followed by gauze and tape was applied. Patient was awakened extubated and transferred to recovery in stable condition. My physician news production assistant was present for the entire case and assisted in all aspects. I attest to the content of the Intraoperative Record and any orders documented therein. Any exceptions are noted below.
[2024-09-07] MEDS: HYDROmorphone INJ 2 MG/ML SYR/VIAL IV PRN (14:22)
[2024-09-07] MEDS: PROMETHAZINE HCL 6.25 MG in SODIUM CHLORIDE 0.9% 50 ML IV PRN (14:29)
[2024-09-07] MEDS: PROMETHAZINE HCL INJ 25 MG/ML 1 ML VIAL ONE (14:50)
--- NOTE | 2024-09-07 15:03 | Anesthesiology Progress Note ---
Date of Service September 07, 2024 Anesthesia Post Procedure Vital Signs Vital Signs: Temp Pulse Pulse Resp BP Pulse Ox O2 Del Method 09/07/24 14:50 56 L 16 121/71 95 Nasal Cannula 09/07/24 14:40 56 L 12 122/75 97 Nasal Cannula 09/07/24 14:30 62 20 135/72 95 Nasal Cannula 09/07/24 14:20 61 16 118/70 97 Room Air 09/07/24 14:10 36.1 C L 68 12 141/73 H 99 Room Air 09/07/24 12:16 36.8 C 60 20 150/89 H 99 Room Air 09/07/24 07:38 36.5 C 62 16 137/82 96 Room Air 09/06/24 22:07 36.8 C 68 16 121/72 96 Room Air O2 Flow Rate 09/07/24 14:50 2 09/07/24 14:40 2 09/07/24 14:30 2 09/07/24 14:20 09/07/24 14:10 09/07/24 12:16 09/07/24 07:38 09/06/24 22:07 Pain Intensity Upper Medial Abdomen: Pain Intensity: 5 Head: Pain Intensity: 0 Back: Pain Intensity: 7 Transfer of Care Handoff Completed per policy Notes Mental Status: alert / awake / arousable and participated in evaluation Nausea / Vomiting: adequately controlled Pain: adequately controlled Airway Patency, RR, SpO2: stable & adequate BP & HR: stable & adequate Hydration State: stable & adequate Anesthetic Complications: no major complications apparent and Pt Satisfied with anesthetic care
[2024-09-07] MEDS: SODIUM CHLORIDE 0.9% 50 ML BAG ONE (16:08)
--- NOTE | 2024-09-07 16:44 | Hospitalist Progress Note ---
Date of Service September 07, 2024 Assessment & Plan (1) Soft tissue abscess: (2) Hives: (3) Anemia: Plan This pt is a 54yo female w h/o multiple abdominal surgeries (pre-cancerous pancreatic mass with Whipple/splenectomy, cathy, ~5 hernia surgeries, prior excision of suture granuloma), DMII, HTN, HLD, Depression/anxiety, and GERD who p/w acute epigastric pain radiating to R jaw and nausea. Found to have cystic lesion/possible abscess in abdomen under site of previous laparotomy scar. CTA negative for PE #Abscess/cystic mass abdominal wall-CTAP noting 4x3.5 anterior abdominal wall subcutaneous complicated cystic lesion. LFTs, lipase normal. Troponin neg x 2, ECG without ischemic changes, no arrhythmias on tele. No evidence of sepsis. CTA Chest does show 2 irregular nodular pleural thickening CHARLY w/ 2 pleural based masses at apical segment of LLL measuring [id number] and ddx could include sequelae of prior granulomatous infection vs mesothelioma. Added Dapto to ceftriaxone on 09/04 and broke out in hives (had also received IV Venofer around same time)- Dapto stopped. Hives ongoing and may be from ceftriaxone? Ceftriaxone then stopped now s/p IR drainage 09/05 and now s/p intraabdominal abscess I&D with washout and antibiotic bead placement (Gent and Vanco)-noted removal of old suture and packing material foreign bodies removed from abscess pocket Wound culture with MSSA resistant to erythromycin and clindamycin; AFB smear pending; Cytology negative -continue doxycycline and convert to po on 09/08 -plan to finish out 2 week course -follow fluid cultures, AFB, cytology -appreciate Gen Surgery consult-f/u as outpt -needs PULM f/u as outpt for abnormal chest CT-pt does report h/o VATS and pleurodesis in 2008-may be scarring from that #Allergic reaction/Hives-broke out in hives on all four extremities after receiv ing Daptomycin and IV Venofer, but also had received 2 doses of ceftriaxone and multiple doses of dilaudid. No anaphylaxis. Hives ongoing but improving -stopped Dapto, Venofer, and ceftriaxone -needs f/u with Crime Scene Analyst as outpt for allergy testing to tease out cause-appt arranged -continue IV benadryl prn -continue Zyrtec 10mg po bid -continue to monitor for improvement #Anemia/Thrombocytosis-hemoglobin low at 10-11.2, MCV borderline microcytic at 82.9, platelets elevated in 500s but with h/o splenectomy.. Doubt menorrhagia as she has IUD in place. Ferritin low at 26. Plts high from inflammation/infection -Given IV Venofer x 1 and then broke out in rash -follow CBC -Needs GI outpatient workup with EGD and colonoscopy #DMII- A1c 6.0, well controlled on trulicity, metformin at baseline and BSGs have been acceptable -continue novolog SSI #HTN-no acute issues - Continue lisinopril #HLD-no acute issues - Holding rosuvastatin while on daptomycin, but can now resume #Depression/anxiety-no acute issues - Continue sertraline, BuSpar #GERD-no acute issues - Continue pantoprazole #Right sided breast nodules-seen on CT chest. Recent mammogram 06/2024 negative but needs breast ultrasound as an outpatient-discussed with patient #Ankylosing spondylitis-hold home Cosentyx-I did discuss this with her Rheum Dr. Tariq who is in agreement Dispo: continued inpatient stay, possible dc to home tomorrow if pain controlled Admission and Anticipated Discharge Date Admission Date: September 02, 2024 Subjective Pt went to OR today for abdominal abscess washout and abx bead placement. Having some pain at surgical site and chronic back pain, having itching all over she thinks from anesthesia, but otherwise ok. Had a headache last night but not as bad as previously. Physical Exam Constitutional: WD/WN, vitals as above Respiratory: normal respiratory effort, lungs clear to auscultation Cardiovascular: RRR, no murmur, no edema Gastrointestinal (Abdomen): Inspection/Auscultation: + abdomen abnormal to inspection (dressing in place c/d/i upper abdomen) Percussion/Palpation: abdomen soft Skin: + rash (scattered erythematous,macular v ariably sized lesions all 4 limbs-healing) Psychiatric: A+Ox3, euthymic affect Results & Data Results & Data Vital Signs (Past 12 Hours) Vital Signs Temp Pulse Pulse Resp BP Pulse Ox O2 Del Method 09/07/24 15:56 36.8 C 68 16 135/81 96 Room Air 09/07/24 15:30 36.7 C 66 18 132/76 95 Room Air 09/07/24 15:15 558 H 18 122/72 95 Nasal Cannula 09/07/24 15:00 36.6 C 56 L 22 120/75 98 Nasal Cannula 09/07/24 14:50 56 L 16 121/71 95 Nasal Cannula 09/07/24 14:40 56 L 12 122/75 97 Nasal Cannula 09/07/24 14:30 62 20 135/72 95 Nasal Cannula 09/07/24 14:20 61 16 118/70 97 Room Air 09/07/24 14:10 36.1 C L 68 12 141/73 H 99 Room Air 09/07/24 12:16 36.8 C 60 20 150/89 H 99 Room Air 09/07/24 07:38 36.5 C 62 16 137/82 96 Room Air O2 Flow Rate 09/07/24 15:56 09/07/24 15:30 09/07/24 15:15 2 09/07/24 15:00 2 09/07/24 14:50 2 09/07/24 14:40 2 09/07/24 14:30 2 09/07/24 14:20 09/07/24 14:10 09/07/24 12:16 09/07/24 07:38 Laboratory Results CBC, BMP, wound cx reviewed PG Care Time/CCT Total # of Minutes Spent Total Time Spent with Patient: Total time spent is greater than 50% in coordination of care (as documented) at patient's floor/unit and/or counseling patient: Coding Level of Care Code 26754 SUB INP/OBS CARE 2/35MIN Diagnoses Soft tissue abscess L02.91 Hives L50.9 Anemia D64.9 Anemia type: unspecified type (3) Anemia Anemia type: unspecified type Qualified Code(s): D64.9 - Anemia, unspecified
[2024-09-08 08:09] LABS: Basophils # (auto) 0.03 K/uL (0.00-0.20); Basophils % (auto) 0.4 %; Eosinophils # (auto) 0.08 K/uL (0.00-0.50); Hematocrit (blood only) 33.9 % (37.0-47.0); Hemoglobin 11.2 g/dl (12.0-16.0); Immature Granulocytes # (auto) 0.02 K/uL (0.01-0.20); Immature Granulocytes % (auto) 0.2 %; Lymphocytes % (auto) 35.1 %; Mean Corpuscular Hemoglobin 27.1 pg (25.0-34.0); Mean Corpuscular Volume 81.9 fL (80.0-100.0); Mean Platelet Volume 9.1 fL (9.4-12.4); Monocytes # (auto) 0.68 K/uL (0.11-0.59); Monocytes % (auto) 8.2 %; Neutrophils # (auto) 4.55 K/uL (1.40-6.50); Neutrophils % (auto) 55.1 %; Platelet Count 581 K/uL (130-400); RDW Coefficient of Variation 15.1 % (11.5-14.5); RDW Standard Deviation 44.8 fL (36.4-46.3); Red Blood Count 4.14 M/uL (4.20-5.40); White Blood Count 8.26 K/ul (4.8-10.8)
[2024-09-08 08:34] LABS: BUN Creatinine Ratio 26.3 (10-20); Calcium 9.2 mg/dl (8.6-10.3); Creatinine Clr Calc Pharmacy 95.8 ml/min; Potassium 3.9 mmol/L (3.5-5.1)
--- NOTE | 2024-09-08 11:00 | Discharge Summary ---
Discharge Summary Date of Service September 08, 2024 Principal Dx & Hospital Course #1 = Principal Diagnosis (1) Soft tissue abscess: (2) Hives: (3) Anemia: Plan This pt is a 54yo female w h/o multiple abdominal surgeries (pre-cancerous pancreatic mass with Whipple/splenectomy, cathy, ~5 hernia surgeries, prior excision of suture granuloma), DMII, HTN, HLD, Depression/anxiety, and GERD who p/w acute epigastric pain radiating to R jaw and nausea. Found to have cystic lesion/possible abscess in abdomen under site of previous laparotomy scar. CTA negative for PE #Abscess/cystic mass abdominal wall/Abdominal and chest pain-CTAP noting 4x3.5 anterior abdominal wall subcutaneous complicated cystic lesion. LFTs, lipase normal. Troponin neg x 2, ECG without ischemic changes, no arrhythmias on tele. No evidence of sepsis. CTA Chest does show 2 irregular nodular pleural thickening CHARLY w/ 2 pleural based masses at apical segment of LLL measuring [id number] and ddx could include sequelae of prior granulomatous infection vs mesothelioma. Added Dapto to ceftriaxone on 09/04 and broke out in hives (had also received IV Venofer around same time)-Dapto stopped. Hives ongoing and may be from ceftriaxone? Ceftriaxone then stopped. She is now s/p IR drainage 09/05 and subsequent intraabdominal abscess I&D with washout and antibiotic bead placement (Gent and Vanco) on 09/07-noted removal of old suture and packing material foreign bodies removed from abscess pocket. Wound culture with MSSA resistant to erythromycin and clindamycin; AFB smear negative, Cytology negative -continue doxycycline and convert to po on 09/08 -plan to give 2 week course further after discharge -dc to home on hydrocodone and APAP prn pain -appreciate Gen Surgery consult-f/u as outpt for staple removal scheduled for 09/18 -needs PULM f/u as outpt for abnormal chest CT-pt does report h/o VATS and pleurodesis in 2008-may be scarring from that #Allergic reaction/Hives-broke out in hives on all four extremities after receiving Daptomycin and IV Venofer, but also had received 2 doses of ceftriaxone and multiple doses of dilaudid. No anaphylaxis. Hives ongoing but improving -stopped Dapto, Venofer, and ceftriaxone -needs f/u with [facility] [employer] Assessor as outpt for allergy testing to tease out cause-appt arranged -continue po benadryl prn -continue Zyrtec 10mg po bid x 1 more week #Anemia/Thrombocytosis-hemoglobin low at 10-11.2, MCV borderline microcytic at 82.9, platelets elevated in 500s but with h/o splenectomy.. Doubt menorrhagia as she has IUD in place. Ferritin low at 26. Plts high from inflammation/infection as well -Given IV Venofer x 1 and then broke out in rash -follow CBC as outpt -Needs GI outpatient workup with EGD and colonoscopy-defer to PCP #DMII- A1c 6.0, well controlled on trulicity, metformin at baseline and BSGs have been acceptable -received novolog SSI here and resume home meds after discharge #HTN-no acute issues - Continue lisinopril #HLD-no acute issues - continue rosuvastatin #Depression/anxiety-no acute issues - Continue sertraline, BuSpar #GERD-no acute issues - Continue pantoprazole #Right sided breast nodules-seen on CT chest. Recent mammogram 06/2024 negative but needs breast ultrasound as an outpatient-discussed with patient. 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 Tariq who is in agreement Dispo: dc to home today Notes For Next Care Provider Needs right breast diagnostic mammogram Has outpt PULM appt for abnormal left lung findings on CT chest Recommend outpatient GI workup EGD/colonoscopy for Fe deficiency anemia Medication Changes From Visit see list Admission HPI Per Admitting Provider 54-year-old female PMHx multiple abdominal surgeries, T2DM, hypercholesterolemia, HTN, ankylosing spondylitis, anxiety, GERD, and IBS presenting for new onset epigastric pain starting the day of arrival. 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 Around 0130 she took a Rolaids which alleviated some of the pain but she still felt some nausea and took an antiemetic at that time. On the day of arrival, she woke up and noticed that the pain was mainly in her epigastric region and she continued to have nausea. States that the pain was radiating slightly into her back and she felt overly bloated. She again took an antiemetic at 0900 the day of arrival for nausea. Has not had any vomiting. States that the pain at its maximum is a 7 out of 10 on the pain scale, and just feels a constant pain in the epigastric area. Current pain is a 5 out of 10 on the pain scale. She did have an episode of SOB on the day of arrival with exertion, but no SOB at rest or currently. 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 Denies any current chest pain, palpitations, or SOB. States her only concern at this time is the ongoing pain that she is having which is new onset for her. Patient has multiple abdominal surgeries in the past, most recent surgery 2022 in which there was an abscess that needs surgical intervention. Denying palpitations, vomiting, constipation, numbness/tingling, LUTS, fever or chills, URI symptoms, weakness, or syncope. Only other concern is that she states that she sometimes gets small blisters on her feet mainly after exercising. These do not break open and they have never caused her much pain other than some irritation. No history of fungal infections feet. ED evaluation reveals no leukocytosis, H&H 10.9/34.1; CMP with BUN/creatinine ratio 21.4, glucose 100; troponin <2.3, pending repeat; lipase 32; CXR progression of pleural thickening in comparison to the 2020 study; chest CTA negative for PE, irregular nodule pleural thickening noted in the CHARLY with 2 pleural-based masses, 2 circumcised right lower inner quadrant breast nodules, mild cardiomegaly and minimal pericardial effusion; CTAP anterior abdominal wall subcu complicated cystic lesion (likely 4 x 3.5 cm abscess), small left hepatic lobe focal lesion, small right suprarenal nodule likely adenoma, anterior abdominal wall hernia not apparent current study; EKG NSR 66 bpm without ischemic changes.; Provided with 500 mL NSS, ondansetron 4 mg IV, hydromorphone 0.25 mg, and ceftriaxone 2 g IV in ED. Please see Dr. Wilkins's attestation for adjustments/additions to treatment plan. Discharge Exam Constitutional WD/WN, vitals as above Respiratory normal respiratory effort, lungs clear to auscultation Cardiovascular RRR, no murmur, no edema Gastrointestinal (Abdomen) Inspection/Auscultation: + abdomen abnormal to inspection (dressing in place c/d/i upper abdomen) Percussion/Palpation: + abdomen tender (mild at abscess site) and abdomen soft; no guarding Skin + rash (scattered erythematous,macular variably sized lesions all 4 limbs- healing) Psychiatric A+Ox3, euthymic affect Discharge Plan Discharge Items Patient Disposition: Home - Self-Care Reason For Visit: CP, ABDOMINAL CYSTIC LESION Discharge Diagnosis: Intra-abdominal wall abscess Hives/allergic reaction Breast nodules-right Left lung abnormality on chest CT Condition on Discharge: Good Activity: As commented below Lifting: No more than 10 pounds Bathing Comment: you can shower. No soaking in pools/bath for 2 weeks Exercise/Sports: Wait until after follow-up appointment Non-emergency contact: Primary Care Provider and Surgeon Call non-emergency contact if: your temperature is above 101.5, your wound has increased redness, your wound has increased drainage and your wound pain has increased Follow-up/Referrals: Sarbjit Andrade DO [Surgeon] - 09/18/24 10:00 am Rico Tolentino MD [Physician] - 09/11/24 8:45 am (Please arrive 15 minutes prior to appointment ) Juanpablo Poon MD [Physician] - 09/27/24 1:00 pm (Please arrive 15 minutes prior to appointment time.) Elizabeth Barr DO [Primary Care Provider] - (Follow up within 1-2 weeks) Diet: Regular Addtl Attending Provider Instructions: You were admitted with an infected cyst/abscess in your abdomen. This was drained surgically and you had antibiotic-soaked beads placed. You have umair that will need to come out at your follow up appointment. Please keep surgical area clean and dry. You can apply gauze and tape for comfort, Change your dressing daily. Please take the doxycycline 100mg by mouth twice a day for 2 more weeks. Please drink a full glass of water with each dose and remain upright after taking this for at least 30 minutes to avoid irritation to your esophagus. For your allergic reaction, continue taking the Zyrtec 10mg twice a day for one more week. You can take Benadryl as needed on top of this for itching. An appointment with the [facility] [employer] Assessor has been made to help determine what your specific allergy is. Incidentally noted on your chest CT were nodules of the breast on the right and possible scarring in lef tlung. Please discuss with your PCP or your BUSINESS PROCESS LEAD doctor about having a right breast ultrasound ordered to further evaluate the nodules in the breast. An appointment with a Chef German has been made for you and we will be reaching out to [facility] for any old CT chest images to be sent to [facility] for review for comparison. Pending Studies at Discharge: Yes (final wound culture) Stand-Alone Forms: My [facility] Health, Work/School Release, Smoking Cessation Medications and DC Order Prescriptions: New cetirizine 10 mg Tablet 10 mg PO BID Qty: 14 0RF doxycycline hyclate 100 mg tablet 100 mg PO Q12H 14 Days Qty: 28 0RF hydrocodone-acetaminophen 5-325 mg tablet 1 tab PO Q8H PRN (Reason: pain, moderate) Qty: 10 0RF diphenhydramine HCl [Benadryl] 25 mg capsule 25 mg PO Q6H PRN (Reason: itching) Qty: 20 0RF Rx Instructions: OTC acetaminophen 325 mg Tablet 650 mg PO Q4H PRN (Reason: pain) Qty: 20 0RF Rx Instructions: OTC Continued multivitamin [Multiple Vitamins] Tablet 1 tab PO QAM metformin 500 mg Tablet 500 mg PO BID lisinopril 20 mg Tablet 20 mg PO QAM rosuvastatin 10 mg Tablet 10 mg PO QPM ascorbic acid (vitamin C) [Vitamin C] 1,000 mg Tablet 2 g PO QAM omeprazole 40 mg Capsule,Delayed Release(Dr/Ec) 40 mg PO QAM aspirin 81 mg Tablet,Delayed Release (Dr/Ec) 81 mg PO PM fluticasone propionate [Flonase Allergy Relief] 50 mcg/actuation [place],Suspension 2 spray INTRANASAL HS cholecalciferol (vitamin D3) [Vitamin D3] 125 mcg (5,000 unit) Tablet 250 mcg PO QAM Airborne (ascorbate sodium) 333-1.7 mg Tablet,Chewable 1.7 mg PO QAM Mirena 20 mcg/24 hours (5 yrs) 52 mg Intrauterine Device 20 mcg INTRAUTERINE CONTINOUS buspirone 5 mg tablet 5 mg PO BID zolpidem [Ambien] 10 mg Tablet 10 mg PO HS PRN (Reason: Sleep) diclofenac potassium 50 mg Tablet 50 mg PO BID wvsenmsk-qzvs-jzorrr-hyalur ac [id number] mg Capsule 1 cap PO BID coQ10 (ubiquinol) 100 mg Capsule 100 mg PO QAM Vitamin B-6 50 mg Capsule 100 mg PO QAM cyanocobalamin (vitamin B-12) 1,000 mcg Capsule 1,000 mcg PO QAM biotin 10,000 mcg Tablet,Chewable 10,000 mcg PO QAM Acv Gummies 1 tab PO DAILY omega-3 fatty acids 1,000 mg Capsule 3,000 mg PO DAILY milk thistle 500 mg Capsule 1,000 mg PO HS Rx Instructions: give with meal/snack calcium carbonate [Calcium 600] 600 mg calcium (1,500 mg) Tablet 600 mg PO DAILY docusate sodium 100 mg Capsule 100 mg PO DAILY zinc gluconate 50 mg Tablet 50 mg PO DAILY polyethylene glycol 3350 [Miralax] 17 gram/dose Powder 17 g PO BID sertraline 50 mg tablet 50 mg PO QAM elderberry fruit 350 mg Capsule 1,050 mg PO HS [place] 1,000 mg PO BID Turmeric/Curcumin 1 tab PO TID Trulicity 0.75 mg/0.5 mL pen injector 0.75 mg subcut WK Rx Instructions: TUESDAYS Held Cosentyx 150 mg/mL Syringe 150 mg SUBCUT MONTHLY Hold Instructions: Resume on 09/22/24. Hold until antibiotic therapy completed fexofenadine [Kia] 180 mg Tablet 180 mg PO DAILY Hold Instructions: Resume on 09/15/24. Hold while taking Zyrtec Discharge Orders: Discharge Order (Routine); Ordered 09/08/24 Ordered By: Fabby Freitas/Other Patient Handouts: Managing Type 2 Diabetes, Special Foot Care for Diabetes Admission Data Admit Date/Time: 09/02/24 22:04 Attending Provider: Fabby Lucas Admit Provider: Harsh Wilkins Primary Care Provider: Elizabeth Barr Other Providers: Harsh Wilkins; Shilo Ordoñez Hospital Stay Data Consultations 09/02/24 21:39 ED Decision to Admit Stat 09/03/24 00:04 Consult General Surgery Routine Procedures Performed Operation Date: 09/07/24 08:20 Actual Procedures p Incision and Drainage of Abdominal Abscess(Not Applicable) - Sarbjit D. Andrade, DO Diagnostic Imagining Performed 09/02/24 17:47 CT abd pelvis IV con only Stat CT angio chest PE protocol Stat 09/05/24 08:31 IR AD US softtissperc w/gdnce Routine Pending Results Patient Have Any Pending Studies at Discharge: Yes (final wound culture) Discharge Instructions Given to Patient (Per Discharging Provider) You were admitted with an infected cyst/abscess in your abdomen. This was drained surgically and you had antibiotic-soaked beads placed. You have umair that will need to come out at your follow up appointment. Please keep surgical area clean and dry. You can apply gauze and tape for comfort, Change your dressing daily. Please take the doxycycline 100mg by mouth twice a day for 2 more weeks. Please drink a full glass of water with each dose and remain upright after taking this for at least 30 minutes to avoid irritation to your esophagus. For your allergic reaction, continue taking the Zyrtec 10mg twice a day for one more week. You can take Benadryl as needed on top of this for itching. An a ppointment with the [employer] Assessor has been made to help determine what your specific allergy is. Incidentally noted on your chest CT were nodules of the breast on the right and possible scarring in lef tlung. Please discuss with your PCP or your BUSINESS PROCESS LEAD doctor about having a right breast ultrasound ordered to further evaluate the nodules in the breast. An appointment with a Chef German has been made for you and we will be reaching out to [facility] for any old CT chest images to be sent to [facility] for review for comparison. Total Time Total Time Spent Total Time Spent (In Minutes): 35 min Total Time Includes: Examination of the Patient, Discharge Planning, Medication Reconciliation and Communication With Other Providers (Dr. Andrade of [facility]) Coding Level of Care Code 37574 INP/OBS DISCH >30 MIN Diagnoses Soft tissue abscess L02.91 Hives L50.9 Anemia D64.9 Anemia type: unspecified type
[2024-09-08 11:21] VITALS: BP 123/76; PULSE 64; RESP 18; TEMP 98.2; O2SAT 97
--- NOTE | 2024-09-08 13:48 | Surgery Progress Note ---
Date of Service September 08, 2024 Assessment & Plan (1) Soft tissue abscess: Plan: POD#1 incision and drainage of abdomainl wall abscess Pt feeling better wound loosely closed with umair with abx beads inside dressing changes plan- as follows keep your surgical dressing in place through wednesday09/10/24. After this you may change your dressing daily with dry gauze/tape. Bird bath until your dressing is removed on sunday 09/10 which after that point you may shower again. You can apply gauze and tape for comfort, Change your dressing daily. pt has appt scheduled in the office on 09/18 Admission and Anticipated Discharge Date Admission Date: September 02, 2024 Subjective Patient feeling better. No issues with wound overnight Physical Exam Physical Exam: awake/alert, no distress Gastrointestinal (Abdomen): incision with surgical dressing c/d/i, little to no drainage Results & Data Vital Signs (Past 12 Hours) Vital Signs Temp Pulse Pulse Resp BP Pulse Ox O2 Del Method 09/08/24 11:19 98.2 F 64 18 123/76 97 Room Air 09/08/24 07:22 97.9 F 72 16 143/88 H 99 Room Air 09/08/24 04:14 98.1 F 58 L 16 115/70 96 Room Air PG Care Time/CCT Total # of Minutes Spent Total Time Spent with Patient: Total time spent is greater than 50% in coordination of care (as documented) at patient's floor/unit and/or counseling patient: Coding Level of Care Code 56698 Post Operative Follow-Up Diagnoses Soft tissue abscess L02.91
== END 2024-09-08 13:51 | disposition home or self-care (01) | DRG 603 ==
LOC: ED 17:27 → 2W 22:04 → SUATTDRO 22:04 → 2W 23:10 → 3W 09-05 21:21